=== PATIENT | male | born 1950 | race Caucasian/White ===

== ENCOUNTER 2017-08-10 12:01 | Outpatient (CLI) | payer MEDICARE, OTHER | END 2017-08-10 12:02 | disposition home or self-care (01) | LOC: BICULT 12:01 | PROVIDERS: ATTEND Family Medicine | DX: B18.2 Chronic viral hepatitis C (principal); K80.20 Calculus of gallbladder without cholecystitis without obstruction | CPT/HCPCS: 76705 ==

== ENCOUNTER 2017-08-28 10:09 | Day surgery (SDC) | payer MEDICARE, MEDICAID ==
--- NOTE | 2017-08-28 04:57 | HP ---
DATE OF ADMISSION: 08/28/2017 REASON FOR CONSULTATION: This is a 67-year-old male, who comes in for colonoscopy for colon cancer s creening. The patient has no specific GI symptoms. His bowel movements are regular. No hematochezi a, abdominal pain. No family history of colon cancer. ALLERGIES: None. SOCIAL HISTORY: The patient is a smoker. Does not drink alcohol. MEDICAL ILLNESSES: 1. Chronic hepatitis C. 2. Obesity. 3. Hypertension. 4. Depression, anxiety, bipolar disorder. 5. Prostate hypertrophy. 6. Peripheral neuropathy. 7. ADHD. 8. Memory loss. PHYSICAL EXAMINATION: VITAL SIGNS: Pulse is 70, blood pressure 130/80. HEENT: Conjunctivae clear. CARDIOVASCULAR: First and second heart sounds normal. LUNGS: Clear to auscultation. ABDOMEN: Soft to palpate. No organomegaly. No tenderness. No masses. ADMITTING DIAGNOSIS: A 67-year-old male, who comes in for colonoscopy for colon cancer screening.
[2017-08-28] MEDS ORDERED: Midazolam HCl 2 mg/2 ml Vial ONE (11:45)
--- NOTE | 2017-08-28 15:36 | OP ---
DATE OF PROCEDURE: 08/28/2017 OPERATIVE PROCEDURE: Colonoscopy with polypectomy. PREOPERATIVE DIAGNOSIS: A 67-year-old male undergoing colonoscopy for colon cancer screeni ng. POSTOPERATIVE DIAGNOSIS: Two sessile polyps, sigmoid colon. Otherwise, the exam was normal. PROCEDURE NOTE: The patient was placed on his left lateral position and was given sedation by Anesth esia Department. A rectal exam was done before the scope was advanced into the rectum. No lesions w ere felt on rectal exam. A Pentax video colonoscope was introduced into the rectum and advanced all the way into the cecum. The prep was good. The patient did have some fecal material coating the muc diamond which was seen. The ileocecal area, cecum, ascending colon, no pathology seen. The hepatic flex ure, transverse colon, splenic flexure, descending colon, no pathology seen. The sigmoid colon showe d 2 sessile polyps. One was large and broad based. The polyp measuring approximately 1.5 cm. This was removed with snare cautery with good hemostasis. Another polyp at same location, which is small and measured approximately 6 mm. This was again removed with snare cautery with good hemostasis. Re troflexion of the scope in the rectum showed hemorrhoids. DISCHARGE PLANNING: This is a 67-year-old male who came in for colonoscopy for colon cance r screening. He underwent colonoscopy with polypectomy x2. DISCHARGE RECOMMENDATIONS: 1. The patient advised to call me if he develops abdominal pain and hematochezia. 2. In the absence of any other symptoms, the patient will come back to me in 2 weeks.
[2017-08-28] MEDS ORDERED: Propofol 200 MG/20 ML VIAL ONE (16:33)
== END 2017-08-28 13:30 | disposition home or self-care (01) ==
LOC: SDC 10:09
PROVIDERS: ATTEND Internal Medicine Gastroenterology
PROC: 0DBN8ZX Excision of Sigmoid Colon, Via Natural or Artificial Opening Endoscopic, Diagnostic (ICD-10-PCS; principal; 2017-08-28)
DX: Z12.11 Encounter for screening for malignant neoplasm of colon (principal); D12.5 Benign neoplasm of sigmoid colon; E66.9 Obesity, unspecified; I10 Essential (primary) hypertension; F41.9 Anxiety disorder, unspecified; F31.9 Bipolar disorder, unspecified; F90.9 Attention-deficit hyperactivity disorder, unspecified type; R41.3 Other amnesia; N40.0 Benign prostatic hyperplasia without lower urinary tract symptoms; B18.2 Chronic viral hepatitis C; G62.9 Polyneuropathy, unspecified; F17.200 Nicotine dependence, unspecified, uncomplicated; Z79.899 Other long term (current) drug therapy
CPT/HCPCS: 88305; J2250; J2704

== ENCOUNTER 2020-07-14 05:24 | Inpatient (IN) | payer MEDICARE, MEDICAID ==
[2020-07-14] MEDS ORDERED: Azithromycin 500 MG VIAL ONE (05:53)
[2020-07-14] MEDS ORDERED: Dexamethasone 10 MG/ML VIAL ONE (05:53)
[2020-07-14 06:46] LABS: #Lymphocytes 0.7 thou/uL (1.20-3.40); #Monocytes 0.6 thou/uL (0.11-0.59); #Neutrophils 5.2 thou/uL (1.40-6.50); %Basophils 0.3 % (0.0-1.0); %Eosinophils 0.6 % (0.0-10.0); %Lymphocytes 10.9 % (21.0-51.0); %Monocytes 8.7 % (0.0-10.0); %Neutrophils 79.5 % (42.0-75.0); Hemoglobin 14.6 g/dL (14.0-18.0); Mean Corpuscular HGB CONC 31.1 g/dL (32.0-36.0); Mean Corpuscular Hemoglobin 28.9 pg (27.0-31.0); Mean Corpuscular Volume 92.8 fL (78.0-98.0); Mean Platelet Volume 9.2 fL (7.4-10.4); Platelet Count 126 thou/uL (130-400); RBC Distribution Width 12.1 % (11.5-14.5); Red Blood Cell (RBC) Count 5.05 mill/uL (4.70-6.10); White Blood Cell (WBC) Count 6.5 thou/uL (4.8-10.8)
[2020-07-14 06:56] LABS: ALT (SGPT) 26 U/L (8-55); AST (SGOT) 31 U/L (5-34); Albumin 3.7 g/dL (3.4-4.8); Alkaline Phosphatase 78 U/L (40-110); Anion Gap 16 mmol/L (10-20); BUN (Urea Nitrogen) 29 mg/dL (8.4-25.7); Bilirubin, Total 0.7 mg/dL (0.2-1.2); Calc. Creatinine Clearance 0 mL/min (70-130); Calcium 8.8 mg/dL (7.8-10.44); Carbon Dioxide 20 mmol/L (23-31); Chloride 108 mmol/L (98-107); Glucose 80 mg/dL (80-115); Potassium 3.9 mmol/L (3.5-5.1); Protein, Total 7.7 g/dL (5.8-8.1); Sodium 140 mmol/L (136-145)
[2020-07-14 07:01] LABS: Prothrombin Time 13.1 sec (12.0-14.7)
--- NOTE | 2020-07-14 07:38 | RAD ---
Chest one view HISTORY: Cough. Dyspnea. FINDINGS: Cardiac silhouette is magnified by projection. Pulmonary vasculature predominantly obscured by ill-defined patchy areas of interstitial and airspace infiltrate throughout each lung. No lobar consolidation is evident. Mediastinum is midline with aortic calcification. No evidence of pneumothorax. IMPRESSION : Patchy bilateral infiltrates, consistent with COVID pneumonitis.
[2020-07-14 10:27] LABS: Lactic Acid 2.4 mmol/L (0.5-2.2)
[2020-07-14 11:46] LABS: Troponin I Less than 0.010 ng/mL (< 0.028)
[2020-07-14 14:50] LABS: Troponin I Less than 0.010 ng/mL (< 0.028)
[2020-07-14] MEDS ORDERED: Acetaminophen 325 MG TAB PO PRN (15:07)
[2020-07-14] MEDS ORDERED: hydrALAZINE 20 MG/ML VIAL SLOW IVP PRN (15:07)
[2020-07-14] MEDS ORDERED: Albuterol 200 PUFF (6.7GM INHALER) INH PRN (15:16)
--- NOTE | 2020-07-14 18:03 | HP ---
PRIMARY CARE PHYSICIAN: Dr. Resendiz. CHIEF COMPLAINT: "I'm having trouble breathing." HISTORY OF PRESENT ILLNESS: Mr. Abreu is a very pleasant 70-year-old gentleman, who has a history of ADHD as well as hypertension and chronic hepatitis C. He also has a history of severe low back pain and difficulty ambulating, and as a result, he resides in a [place] [facility]. He says that on July 05, they did a routine COVID check for all of the residents and he was found to be COVID positive. He says that a couple of days after that, on possibly , he began having symptoms of high fever up to 101.7. This continued until about 3 days ago when he began having some difficulty with breathing. He felt short of breath and noticed only an occasional cough. There was no nausea, no vomiting, but due to the shortness of breath, he felt it was in his best interest to come to the hospital, so he was brought here and found to be hypoxic and required 4 L of oxygen in order to maintain his oxygen saturations in the 90s. On chest x-ray, he was found to have findings consistent with bilateral pulmonary infiltrates consistent with COVID pneumonia and is being admitted for further evaluation. Otherwise, the patient has no other complaints other than the chronic back pain and he is very concerned to get started back on his ADHD medications. REVIEW OF SYSTEMS: All systems were reviewed and are negative except for that mentioned in the history of present illness. PAST MEDICAL HISTORY: Significant for chronic hepatitis C, hypertension, obesity, depression, ADHD. PAST SURGICAL HISTORY: He had a tonsillectomy and a skin graft to the right leg. ALLERGIES: NO KNOWN DRUG ALLERGIES. SOCIAL HISTORY: He is a current smoker. He smokes 2 to 3 cigarettes a day. He says prior to that he smoked a lot more. He cannot tell me how long he has been a smoker. He denies any alcohol use. He is single and he says he would like to be a full code. He says he would at least want an attempt at resuscitation done, but would not want to be maintained on a ventilator for a long period of time. FAMILY HISTORY: Ovarian cancer in his mother. CURRENT MEDICATIONS: Taken from the ER records and include; 1. Alprazolam 0.5 mg as needed. 2. as directed. 3. Bupropion 100 mg as directed. 4. Guaifenesin 100 mg as directed. 5. Lisinopril 10 mg as directed. PHYSICAL EXAMINATION: GENERAL: He is alert and oriented. He appears to be in no acute distress. He is well developed and well nourished. VITAL SIGNS: Blood pressure was 143/94, heart rate 109, respiratory rate of 20, temperature is 99.0, and O2 saturation is 90% on 4 L. HEENT: Pupils are equal, round, and reactive to light. Extraocular muscles are intact. His sclerae are anicteric. Throat; there is no erythema, no exudate. NECK: No adenopathy. No bruits. LUNGS: He has basilar crackles bilaterally as well as an occasional wheeze. CARDIOVASCULAR: He has a normal S1 and S2. I did not appreciate an S3 or S4. No murmurs, clicks, or rubs. ABDOMEN: Soft, nontender, nondistended. Positive for bowel sounds. No rebound. No guarding. No organomegaly. EXTREMITIES: There is no clubbing or cyanosis. No edema. No calf tenderness. No joint effusions. NEUROLOGIC: The exam is grossly nonfocal. SKIN AND INTEGUMENT: No skin changes. No rash. LABORATORY RESULTS: The white blood cell count is 6.5, hemoglobin 14.6, hematocrit is 46.9, and platelet count was 129. Sodium 140, potassium 3.9, chloride is 108, CO2 is 20, BUN of 29, creatinine 1.06, glucose is 80. Lactic acid 2.3. INR is 1.0. Again on chest x-ray, heart size is normal. He has bilateral pulmonary infiltrates consistent with COVID pneumonia, and also on the right, there appears to be some fluid within the fissure, this is by my reading. ASSESSMENT: 1. This is a pleasant 70-year-old gentleman with acute respiratory failure with hypoxemia. He also is known COVID positive. He will be admitted, started on IV Decadron, neb treatments as needed, deep venous thrombosis prophylaxis as well as gastrointestinal prophylaxis. We will also monitor his inflammatory markers. As far as timeframe, he is within the timeframe for remdesivir, and he has been consented for this. He does understand that it is for emergency use authorization and the side effect profiles were discussed and he is agreeable. 2. Attention deficit hyperactivity disorder. We will need to reconcile and restart his home medications. 3. Hypertension. Again, reconcile and restart home medications. Job ID: [id number]
[2020-07-14] MEDS: HYDROcodone/Acetaminophen 5/325 mg Tablet PO PRN (18:31)
[2020-07-14] MEDS ORDERED: buPROPion HCl 100 MG TAB PO SCH (21:00)
[2020-07-14] MEDS: ALPRAZolam 0.5 MG TAB PO SCH (22:41)
[2020-07-14] MEDS: Pregabalin 75 MG CAP PO SCH (22:41)
[2020-07-14] MEDS: Famotidine 20 MG TAB PO SCH (22:41)
[2020-07-15] MEDS: HYDROcodone/Acetaminophen 5/325 mg Tablet PO PRN ×3 (00:25→22:02)
[2020-07-15 06:21] LABS: #Eosinphils 0.1 thou/uL (0.0-0.7); #Lymphocytes 0.9 thou/uL (1.20-3.40); #Monocytes 0.6 thou/uL (0.11-0.59); #Neutrophils 5.9 thou/uL (1.40-6.50); %Basophils 0.1 % (0.0-1.0); %Eosinophils 1.2 % (0.0-10.0); %Lymphocytes 12.4 % (21.0-51.0); %Neutrophils 78.3 % (42.0-75.0); Hemoglobin 12.8 g/dL (14.0-18.0); Mean Corpuscular HGB CONC 32.9 g/dL (32.0-36.0); Mean Corpuscular Hemoglobin 30.4 pg (27.0-31.0); Mean Corpuscular Volume 92.5 fL (78.0-98.0); Mean Platelet Volume 8.8 fL (7.4-10.4); Platelet Count 134 thou/uL (130-400); RBC Distribution Width 12.1 % (11.5-14.5); Red Blood Cell (RBC) Count 4.22 mill/uL (4.70-6.10); White Blood Cell (WBC) Count 7.6 thou/uL (4.8-10.8)
[2020-07-15 06:42] LABS: Anion Gap 15 mmol/L (10-20); BUN (Urea Nitrogen) 25 mg/dL (8.4-25.7); CRP (Inflammatory) 5.24 mg/dL (= or < 0.5); Calc. Creatinine Clearance 61 mL/min (70-130); Calcium 8.4 mg/dL (7.8-10.44); Carbon Dioxide 19 mmol/L (23-31); Chloride 110 mmol/L (98-107); Glucose 77 mg/dL (80-115); Potassium 3.7 mmol/L (3.5-5.1); Sodium 140 mmol/L (136-145)
[2020-07-15] MEDS: Famotidine 20 MG TAB PO SCH ×2 (07:46→20:03)
[2020-07-15] MEDS: Enoxaparin Sodium 40 MG/0.4 ML SYRINGE SC SCH (07:46)
[2020-07-15] MEDS: Pregabalin 75 MG CAP PO SCH ×3 (07:47→20:03)
[2020-07-15] MEDS: ALPRAZolam 0.5 MG TAB PO SCH ×3 (07:47→20:04)
[2020-07-15] MEDS: Cholecalciferol 1,000 UNITS (25 MCG) TAB PO SCH (07:47)
[2020-07-15] MEDS: Ascorbic Acid 500 mg Chewable Tablet PO SCH (07:48)
[2020-07-15] MEDS: Lisinopril 10 MG TAB PO SCH (07:48)
[2020-07-15] MEDS: Zinc Sulfate 220 MG CAP PO SCH (07:48)
[2020-07-15] MEDS ORDERED: FLU VACC QS2020-21(65YR UP)/PF 240 MCG/0.7 ML SYRINGE IM ONE (09:00)
[2020-07-15] MEDS ORDERED: REMDESIVIR (EUA) 200 MG in Sodium Chloride 0.9% 250 ML 210 ML IV SCH (09:00)
[2020-07-15] MEDS: Dexamethasone 6 MG in Sodium Chloride 0.9% 50 ML IVPB SCH (09:07)
--- NOTE | 2020-07-15 10:42 | PDOC.HOSPP ---
- Subjective Encounter Date: 07/15/20 Encounter Time: 10:40 Subjective: Mr. Abreu was seen today in follow-up of COVID pneumonia and respiratory failure. He says he feels awful, but is breathing comfortably with supplemental oxygen. He has no appetite, and has had some diarrhea. - Objective Vital Signs & Weight: Vital Signs (12 hours) Temp Pulse Resp BP Pulse Ox 07/15/20 08:00 95 07/15/20 04:00 98.2 F 62 20 148/81 H 95 07/15/20 00:00 98.2 F 66 18 152/76 H 93 L Weight Weight 113 lb 1.554 oz I&O: 07/14/20 07/15/20 07/16/20 06:59 06:59 06:59 Intake Total 240 Balance 240 Result Diagrams: 07/15/20 05:57 07/15/20 05:57 Hospitalist ROS - Medication Medications: Active Medications Generic Name Dose Route Start Last Admin Trade Name Freq PRN Reason Stop Dose Admin Hydrocodone Bitart/Acetaminophen 1 tab 07/14/20 15:07 07/15/20 00:25 Hydrocodone/Acetaminophen 5/325 Mg Tablet PO 1 tab Q4H PRN Administration Moderate Pain (4-6) Alprazolam 0.5 mg 07/14/20 21:00 07/15/20 07:47 Alprazolam 0.5 Mg Tab PO 0.5 mg TID SAVANNA Administration Ascorbic Acid 1,000 mg 07/15/20 09:00 07/15/20 07:48 Ascorbic Acid 500 Mg Chewable Tablet PO 1,000 mg DAILY SAVANNA Administration Cholecalciferol 2,000 units 07/15/20 09:00 07/15/20 07:47 Cholecalciferol 1,000 Units (25 Mcg) Tab PO 2,000 units DAILY SAVANNA Administration Enoxaparin Sodium 40 mg 07/15/20 09:00 07/15/20 07:46 Enoxaparin Sodium 40 Mg/0.4 Ml Syringe SC 40 mg 0900 SAVANNA Administration Famotidine 20 mg 07/14/20 21:00 07/15/20 07:46 Famotidine 20 Mg Tab PO 20 mg BID SAVANNA Administration Dexamethasone 6 mg/ Sodium 51.5 mls @ 100 mls/hr 07/15/20 09:00 07/15/20 09:07 Chloride IVPB 51.5 mls DAILY SAVANNA Administration Lisinopril 10 mg 07/15/20 09:00 07/15/20 07:48 Lisinopril 10 Mg Tab PO 10 mg QAM SAVANNA Administration Pregabalin 75 mg 07/14/20 21:00 07/15/20 07:47 Pregabalin 75 Mg Cap PO 75 mg TID SAVANNA Administration Zinc Sulfate 220 mg 07/15/20 09:00 07/15/20 07:48 Zinc Sulfate 220 Mg Cap PO 220 mg DAILY SAVANNA Administration - Exam Eye: PERRL, anicteric sclera Heart: RRR, no murmur, no gallops, no rubs, normal peripheral pulses Respiratory: rales Gastrointestinal: soft, non-tender, non-distended, normal bowel sounds, no palpable masses, no hepatomegaly Extremities: no cyanosis, no edema (+ palpable d.p. pulses bilaterally, no lesions) Hosp A/P (1) Acute respiratory failure with hypoxemia Code(s): J96.01 - ACUTE RESPIRATORY FAILURE WITH HYPOXIA Status: Acute (2) Pneumonia due to COVID-19 virus Code(s): U07.1 - COVID-19; J12.82 - Status: Acute (3) ADHD Status: Chronic (4) Hypertension Code(s): I10 - ESSENTIAL (PRIMARY) HYPERTENSION Status: Chronic - Plan * COVID pneumonia- continue Decadron and Remdesivir. Supplemental oxygen, and will add incentive spirometry * Monitor inflammatory markers as well as renal and liver function tests * HTN- blood pressure is a bit elevated- Lisinopril has been re-started, and continue PRN medication as well * ADHD- he was not able to receive his home medication from the nursing facility- we may have to place anon-formulary request *
[2020-07-16] MEDS: HYDROcodone/Acetaminophen 5/325 mg Tablet PO PRN ×5 (04:00→22:20)
[2020-07-16 07:18] LABS: Anion Gap 16 mmol/L (10-20); BUN (Urea Nitrogen) 26 mg/dL (8.4-25.7); CRP (Inflammatory) 8.52 mg/dL (= or < 0.5); Calc. Creatinine Clearance 61 mL/min (70-130); Calcium 8.4 mg/dL (7.8-10.44); Carbon Dioxide 18 mmol/L (23-31); Chloride 108 mmol/L (98-107); Glucose 72 mg/dL (80-115); Potassium 3.7 mmol/L (3.5-5.1); Sodium 138 mmol/L (136-145)
[2020-07-16 07:20] LABS: ALT (SGPT) 26 U/L (8-55); AST (SGOT) 26 U/L (5-34); Albumin 3.3 g/dL (3.4-4.8); Alkaline Phosphatase 79 U/L (40-110); Bilirubin, Direct 0.3 mg/dL (0.1-0.3); Bilirubin, Total 0.6 mg/dL (0.2-1.2)
[2020-07-16] MEDS: Enoxaparin Sodium 40 MG/0.4 ML SYRINGE SC SCH (08:07)
[2020-07-16] MEDS: Cholecalciferol 1,000 UNITS (25 MCG) TAB PO SCH (08:07)
[2020-07-16] MEDS: Lisinopril 10 MG TAB PO SCH (08:08)
[2020-07-16] MEDS: ALPRAZolam 0.5 MG TAB PO SCH ×3 (08:08→21:33)
[2020-07-16] MEDS: Ascorbic Acid 500 mg Chewable Tablet PO SCH (08:08)
[2020-07-16] MEDS: Pregabalin 75 MG CAP PO SCH ×3 (08:08→21:32)
[2020-07-16] MEDS: Famotidine 20 MG TAB PO SCH ×2 (08:08→21:32)
[2020-07-16] MEDS: Zinc Sulfate 220 MG CAP PO SCH (08:09)
[2020-07-16] MEDS: Dexamethasone 6 MG in Sodium Chloride 0.9% 50 ML IVPB SCH (09:12)
--- NOTE | 2020-07-16 10:47 | PDOC.HOSPP ---
- Subjective Encounter Date: 07/16/20 Encounter Time: 10:45 Subjective: Mr. Abreu was seen today in follow-up of respiratory failure due to COVID. He says he feels maybe a tiny bit better. - Objective Vital Signs & Weight: Vital Signs (12 hours) Temp Pulse Resp BP BP Pulse Ox 07/16/20 08:36 95 07/16/20 08:08 166/82 H 07/16/20 07:20 98.5 F 68 18 166/82 H 95 07/16/20 04:00 98.8 F 82 18 157/93 H 93 L 07/16/20 00:05 98.8 F 78 18 143/87 H 96 Weight Weight 113 lb 1.554 oz I&O: 07/15/20 07/16/20 07/17/20 06:59 06:59 06:59 Intake Total 480 Balance 480 Result Diagrams: 07/15/20 05:57 07/16/20 06:28 Hospitalist ROS - Medication Medications: Active Medications Generic Name Dose Route Start Last Admin Trade Name Freq PRN Reason Stop Dose Admin Hydrocodone Bitart/Acetaminophen 1 tab 07/14/20 15:07 07/16/20 08:06 Hydrocodone/Acetaminophen 5/325 Mg Tablet PO 1 tab Q4H PRN Administration Moderate Pain (4-6) Alprazolam 0.5 mg 07/14/20 21:00 07/16/20 08:08 Alprazolam 0.5 Mg Tab PO 0.5 mg TID SAVANNA Administration Ascorbic Acid 1,000 mg 07/15/20 09:00 07/16/20 08:08 Ascorbic Acid 500 Mg Chewable Tablet PO 1,000 mg DAILY SAVANNA Administration Cholecalciferol 2,000 units 07/15/20 09:00 07/16/20 08:07 Cholecalciferol 1,000 Units (25 Mcg) Tab PO 2,000 units DAILY SAVANNA Administration Enoxaparin Sodium 40 mg 07/15/20 09:00 07/16/20 08:07 Enoxaparin Sodium 40 Mg/0.4 Ml Syringe SC 40 mg 0900 SAVANNA Administration Famotidine 20 mg 07/14/20 21:00 07/16/20 08:08 Famotidine 20 Mg Tab PO 20 mg BID SAVANNA Administration Dexamethasone 6 mg/ Sodium 51.5 mls @ 100 mls/hr 07/15/20 09:00 07/16/20 09:12 Chloride IVPB 51.5 mls DAILY SAVANNA Administration Lisinopril 10 mg 07/15/20 09:00 07/16/20 08:08 Lisinopril 10 Mg Tab PO 10 mg QAM SAVANNA Administration Pregabalin 75 mg 07/14/20 21:00 07/16/20 08:08 Pregabalin 75 Mg Cap PO 75 mg TID SAVANNA Administration Zinc Sulfate 220 mg 07/15/20 09:00 07/16/20 08:09 Zinc Sulfate 220 Mg Cap PO 220 mg DAILY SAVANNA Administration - Exam General Appearance: NAD, awake alert Heart: RRR, no murmur, no gallops, no rubs, normal peripheral pulses Respiratory: rales (at both bases, no wheezing or rhonchi) Gastrointestinal: soft, non-tender, non-distended, normal bowel sounds, no palpable masses, no hepatomegaly Extremities: no cyanosis, no edema (good d.p. pulses bilaterally) Hosp A/P (1) Acute respiratory failure with hypoxemia Code(s): J96.01 - ACUTE RESPIRATORY FAILURE WITH HYPOXIA Status: Acute (2) Pneumonia due to COVID-19 virus Code(s): U07.1 - COVID-19; J12.82 - Status: Acute (3) ADHD Status: Chronic (4) Hypertension Code(s): I10 - ESSENTIAL (PRIMARY) HYPERTENSION Status: Chronic - Plan * COVID pneumonia- continue Decadron and Remdesivir until July 19. Supplemental oxygen, and will add incentive spirometry * Monitor inflammatory markers as well as renal and liver function tests * HTN- blood pressure is a bit elevated- Lisinopril has been re-started, and continue PRN medication as well * ADHD- he was not able to receive his home medication from the nursing facility- we may have to place anon-formulary request *
[2020-07-16] MEDS: REMDESIVIR (EUA) 100 MG in Sodium Chloride 0.9% 250 ML 230 ML IV SCH (10:57)
[2020-07-16 12:53] VITALS: BMI 35.1
[2020-07-16] MEDS: buPROPion HCl 100 MG TAB PO SCH (21:31)
[2020-07-17] MEDS: Dicyclomine 10 MG CAP PO PRN ×3 (01:38→23:25)
[2020-07-17] MEDS: HYDROcodone/Acetaminophen 5/325 mg Tablet PO PRN ×6 (02:19→21:34)
[2020-07-17 06:55] LABS: Anion Gap 15 mmol/L (10-20); BUN (Urea Nitrogen) 27 mg/dL (8.4-25.7); CRP (Inflammatory) 6.59 mg/dL (= or < 0.5); Calc. Creatinine Clearance 131 mL/min (70-130); Calcium 8.6 mg/dL (7.8-10.44); Carbon Dioxide 18 mmol/L (23-31); Chloride 108 mmol/L (98-107); Glucose 91 mg/dL (80-115); Potassium 4.1 mmol/L (3.5-5.1); Sodium 137 mmol/L (136-145)
[2020-07-17 07:00] LABS: ALT (SGPT) 27 U/L (8-55); AST (SGOT) 24 U/L (5-34); Albumin 3.1 g/dL (3.4-4.8); Alkaline Phosphatase 83 U/L (40-110); Bilirubin, Direct 0.3 mg/dL (0.1-0.3); Bilirubin, Total 0.5 mg/dL (0.2-1.2); Magnesium 2.1 mg/dL (1.6-2.6); Protein, Total 6.6 g/dL (5.8-8.1)
[2020-07-17] MEDS: Enoxaparin Sodium 40 MG/0.4 ML SYRINGE SC SCH ×2 (08:31→09:46)
[2020-07-17] MEDS: Pregabalin 75 MG CAP PO SCH ×3 (08:31→21:33)
[2020-07-17] MEDS: ALPRAZolam 1 MG TAB PO SCH ×3 (08:32→21:32)
[2020-07-17] MEDS: Ascorbic Acid 500 mg Chewable Tablet PO SCH (08:32)
[2020-07-17] MEDS: buPROPion HCl 100 MG TAB PO SCH ×2 (08:33→21:33)
[2020-07-17] MEDS: Famotidine 20 MG TAB PO SCH ×2 (08:33→21:33)
[2020-07-17] MEDS: Zinc Sulfate 220 MG CAP PO SCH (08:33)
[2020-07-17] MEDS: Lisinopril 10 MG TAB PO SCH (08:33)
[2020-07-17] MEDS: Dexamethasone 6 MG in Sodium Chloride 0.9% 50 ML IVPB SCH (08:33)
[2020-07-17] MEDS: Cholecalciferol 1,000 UNITS (25 MCG) TAB PO SCH (08:33)
[2020-07-17] MEDS: REMDESIVIR (EUA) 100 MG in Sodium Chloride 0.9% 250 ML 230 ML IV SCH (10:11)
--- NOTE | 2020-07-17 10:21 | PDOC.HOSPP ---
- Subjective Encounter Date: 07/17/20 Encounter Time: 10:19 Subjective: Mr. Abreu was seen today in follow-up of COVID pneumonia. He says he continues to feel a little better each day. He says he is had trouble sleeping, and still would like to have the Adderall. - Objective Vital Signs & Weight: Vital Signs (12 hours) Temp Pulse Resp BP BP Pulse Ox 07/17/20 08:33 143/81 H 07/17/20 08:00 94 L 07/17/20 07:07 98.4 F 67 20 143/81 H 94 L 07/17/20 04:58 98.4 F 84 20 144/78 H 98 07/17/20 00:40 97.8 F 100 18 155/88 H 92 L Weight Admit Weight 238 lb Weight 238 lb 0.7 oz I&O: 07/16/20 07/17/20 07/18/20 06:59 06:59 06:59 Intake Total 480 1950 Output Total 300 Balance 480 1650 Result Diagrams: 07/15/20 05:57 07/17/20 05:51 Hospitalist ROS - Medication Medications: Active Medications Generic Name Dose Route Start Last Admin Trade Name Freq PRN Reason Stop Dose Admin Acetaminophen 650 mg 07/14/20 15:07 07/17/20 05:08 Acetaminophen 325 Mg Tab PO 650 mg Q4H PRN Administration Headache/Fever/Mild Pain (1-3) Hydrocodone Bitart/Acetaminophen 1 tab 07/14/20 15:07 07/17/20 10:11 Hydrocodone/Acetaminophen 5/325 Mg Tablet PO 1 tab Q4H PRN Administration Moderate Pain (4-6) Alprazolam 1 mg 07/17/20 09:00 07/17/20 08:32 Alprazolam 1 Mg Tab PO 1 mg TID SAVANNA Administration Ascorbic Acid 1,000 mg 07/15/20 09:00 07/17/20 08:32 Ascorbic Acid 500 Mg Chewable Tablet PO 1,000 mg DAILY SAVANNA Administration Bupropion HCl 200 mg 07/16/20 21:00 07/17/20 08:33 Bupropion Hcl 100 Mg Tab PO 200 mg BID SAVANNA Administration Cholecalciferol 2,000 units 07/15/20 09:00 07/17/20 08:33 Cholecalciferol 1,000 Units (25 Mcg) Tab PO 2,000 units DAILY SAVANNA Administration Dicyclomine HCl 10 mg 07/17/20 00:45 07/17/20 08:32 Dicyclomine 10 Mg Cap PO 10 mg QIDPRN PRN Administration CRAMPS Enoxaparin Sodium 40 mg 07/15/20 09:00 07/17/20 09:46 Enoxaparin Sodium 40 Mg/0.4 Ml Syringe SC Not Given 0900 SAVANNA Famotidine 20 mg 07/14/20 21:00 07/17/20 08:33 Famotidine 20 Mg Tab PO 20 mg BID SAVANNA Administration Dexamethasone 6 mg/ Sodium 51.5 mls @ 100 mls/hr 07/15/20 09:00 07/17/20 08:33 Chloride IVPB 51.5 mls DAILY SAVANNA Administration Remdesivir 100 mg/ Sodium 250 mls @ 250 mls/hr 07/16/20 09:00 07/17/20 10:11 Chloride IV 07/19/20 09:59 250 mls Q24H SAVANNA Administration Lisinopril 10 mg 07/15/20 09:00 07/17/20 08:33 Lisinopril 10 Mg Tab PO 10 mg QAM SAVANNA Administration Pregabalin 75 mg 07/14/20 21:00 07/17/20 08:31 Pregabalin 75 Mg Cap PO 75 mg TID SAVANNA Administration Zinc Sulfate 220 mg 07/15/20 09:00 07/17/20 08:33 Zinc Sulfate 220 Mg Cap PO 220 mg DAILY SAVANNA Administration - Exam Eye: PERRL, anicteric sclera Heart: RRR, no murmur, no gallops, no rubs, normal peripheral pulses Respiratory: no wheezes, no ronchi, rales Gastrointestinal: soft, non-tender, non-distended, normal bowel sounds, no palpable masses Extremities: no cyanosis, no edema (+ palpable d.p. pulses, no lesions) Hosp A/P (1) Acute respiratory failure with hypoxemia Code(s): J96.01 - ACUTE RESPIRATORY FAILURE WITH HYPOXIA Status: Acute (2) Pneumonia due to COVID-19 virus Code(s): U07.1 - COVID-19; J12.82 - Status: Acute (3) ADHD Status: Chronic (4) Hypertension Code(s): I10 - ESSENTIAL (PRIMARY) HYPERTENSION Status: Chronic - Plan * COVID pneumonia- continue Decadron and Remdesivir until July 19. Supplemental oxygen, and will add incentive spirometry * Monitor inflammatory markers as well as renal and liver function tests * HTN- blood pressure is better continue Lisinopril and PRN medication as well * ADHD- I have completed the forms for non-formulary request * Insomnia- will give a trial of Ambien
[2020-07-17] MEDS: Zolpidem Tartrate 5 MG TAB PO PRN ×2 (10:57→23:25)
[2020-07-18] MEDS: HYDROcodone/Acetaminophen 5/325 mg Tablet PO PRN ×3 (03:01→20:32)
[2020-07-18] MEDS: Dicyclomine 10 MG CAP PO PRN (03:35)
[2020-07-18 07:31] LABS: Anion Gap 16 mmol/L (10-20); BUN (Urea Nitrogen) 23 mg/dL (8.4-25.7); CRP (Inflammatory) 3.75 mg/dL (= or < 0.5); Calc. Creatinine Clearance 124 mL/min (70-130); Calcium 8.8 mg/dL (7.8-10.44); Carbon Dioxide 18 mmol/L (23-31); Chloride 106 mmol/L (98-107); Glucose 94 mg/dL (80-115); Potassium 3.7 mmol/L (3.5-5.1); Sodium 136 mmol/L (136-145)
[2020-07-18 07:33] LABS: ALT (SGPT) 30 U/L (8-55); AST (SGOT) 27 U/L (5-34); Albumin 3.2 g/dL (3.4-4.8); Alkaline Phosphatase 95 U/L (40-110); Bilirubin, Direct 0.2 mg/dL (0.1-0.3); Bilirubin, Total 0.5 mg/dL (0.2-1.2); Protein, Total 6.8 g/dL (5.8-8.1)
[2020-07-18] MEDS: Enoxaparin Sodium 40 MG/0.4 ML SYRINGE SC SCH (09:21)
[2020-07-18] MEDS: Lisinopril 10 MG TAB PO SCH (09:21)
[2020-07-18] MEDS: ALPRAZolam 1 MG TAB PO SCH ×3 (09:21→20:03)
[2020-07-18] MEDS: Ascorbic Acid 500 mg Chewable Tablet PO SCH (09:21)
[2020-07-18] MEDS: Famotidine 20 MG TAB PO SCH ×2 (09:21→20:03)
[2020-07-18] MEDS: Pregabalin 75 MG CAP PO SCH ×4 (09:21→20:04)
[2020-07-18] MEDS: Cholecalciferol 1,000 UNITS (25 MCG) TAB PO SCH (09:33)
--- NOTE | 2020-07-18 10:41 | PDOC.HOSPP ---
- Subjective Encounter Date: 07/18/20 Subjective: appears comfortable, worried that he is not getting his Adderall - Objective Vital Signs & Weight: Vital Signs (12 hours) Temp Pulse Resp BP Pulse Ox 07/18/20 08:00 98.0 F 75 93 H 118/75 22 L 07/18/20 06:15 92 L 07/18/20 05:09 98 F 67 18 148/79 H 89 L Weight Admit Weight 238 lb Weight 238 lb 0.7 oz I&O: 07/17/20 07/18/20 07/19/20 06:59 06:59 06:59 Intake Total 1950 1540 Output Total 300 400 Balance 1650 1140 Result Diagrams: 07/15/20 05:57 07/18/20 06:25 Hospitalist ROS - Medication Medications: Active Medications Generic Name Dose Route Start Last Admin Trade Name Freq PRN Reason Stop Dose Admin Acetaminophen 650 mg 07/14/20 15:07 07/17/20 05:08 Acetaminophen 325 Mg Tab PO 650 mg Q4H PRN Administration Headache/Fever/Mild Pain (1-3) Hydrocodone Bitart/Acetaminophen 1 tab 07/14/20 15:07 07/18/20 09:33 Hydrocodone/Acetaminophen 5/325 Mg Tablet PO 1 tab Q4H PRN Administration Moderate Pain (4-6) Alprazolam 1 mg 07/17/20 09:00 07/18/20 09:21 Alprazolam 1 Mg Tab PO 1 mg TID SAVANNA Administration Ascorbic Acid 1,000 mg 07/15/20 09:00 07/18/20 09:21 Ascorbic Acid 500 Mg Chewable Tablet PO 1,000 mg DAILY SAVANNA Administration Bupropion HCl 200 mg 07/16/20 21:00 07/17/20 21:33 Bupropion Hcl 100 Mg Tab PO 200 mg BID SAVANNA Administration Cholecalciferol 2,000 units 07/15/20 09:00 07/18/20 09:33 Cholecalciferol 1,000 Units (25 Mcg) Tab PO 2,000 units DAILY SAVANNA Administration Dicyclomine HCl 10 mg 07/17/20 00:45 07/18/20 03:35 Dicyclomine 10 Mg Cap PO 10 mg QIDPRN PRN Administration CRAMPS Enoxaparin Sodium 40 mg 07/15/20 09:00 07/18/20 09:21 Enoxaparin Sodium 40 Mg/0.4 Ml Syringe SC 40 mg 0900 SAVANNA Administration Famotidine 20 mg 07/14/20 21:00 07/18/20 09:21 Famotidine 20 Mg Tab PO 20 mg BID SAVANNA Administration Dexamethasone 6 mg/ Sodium 51.5 mls @ 100 mls/hr 07/15/20 09:00 07/17/20 08:33 Chloride IVPB 51.5 mls DAILY SAVANNA Administration Remdesivir 100 mg/ Sodium 250 mls @ 250 mls/hr 07/16/20 09:00 07/17/20 10:11 Chloride IV 07/19/20 09:59 250 mls Q24H SAVANNA Administration Lisinopril 10 mg 07/15/20 09:00 07/18/20 09:21 Lisinopril 10 Mg Tab PO 10 mg QAM SAVANNA Administration Pregabalin 75 mg 07/14/20 21:00 07/18/20 09:21 Pregabalin 75 Mg Cap PO 75 mg TID SAVANNA Administration Zinc Sulfate 220 mg 07/15/20 09:00 07/17/20 08:33 Zinc Sulfate 220 Mg Cap PO 220 mg DAILY SAVANNA Administration Zolpidem Tartrate 5 mg 07/17/20 10:18 07/17/20 23:25 Zolpidem Tartrate 5 Mg Tab PO 5 mg HSPRN PRN Administration Insomnia - Exam General Appearance: awake alert Eye: PERRL, anicteric sclera ENT: normocephalic atraumatic, no oropharyngeal lesions Neck: supple, symmetric, no JVD Heart: RRR, no murmur, no gallops Respiratory: CTAB, no wheezes Gastrointestinal: soft, non-tender Extremities: no cyanosis Skin: normal turgor Neurological: cranial nerve grossly intact Musculoskeletal: normal tone Hosp A/P (1) Pneumonia due to COVID-19 virus Code(s): U07.1 - COVID-19; J12.82 - PNEUMONIA DUE TO CORONAVIRUS DISEASE 2019 Status: Acute (2) ADHD Status: Chronic (3) Hypertension Code(s): I10 - ESSENTIAL (PRIMARY) HYPERTENSION Status: Chronic - Plan seems to still require oxygen but otherwise clinically doing well. spoke with RN about his Adderrall, we need to procure it for him. He comes from a [facility] and I project being able to discharge him tomorrow on oxygen and po decadron to finish his therapeutic course.
[2020-07-18] MEDS: Dexamethasone 6 MG in Sodium Chloride 0.9% 50 ML IVPB SCH (11:00)
[2020-07-18] MEDS: buPROPion HCl 100 MG TAB PO SCH ×2 (11:00→20:03)
[2020-07-18] MEDS: Zinc Sulfate 220 MG CAP PO SCH (11:31)
[2020-07-18] MEDS: REMDESIVIR (EUA) 100 MG in Sodium Chloride 0.9% 250 ML 230 ML IV SCH (12:00)
[2020-07-18] MEDS: (Dextroamphetamine/Amphetamine [Adderall] 30 MG Tablet) PO SCH (17:57)
[2020-07-19] MEDS: HYDROcodone/Acetaminophen 5/325 mg Tablet PO PRN ×2 (03:09→08:26)
[2020-07-19 06:37] LABS: #Eosinphils 0.1 thou/uL (0.0-0.7); #Lymphocytes 1.1 thou/uL (1.20-3.40); #Neutrophils 9.9 thou/uL (1.40-6.50); %Eosinophils 0.5 % (0.0-10.0); %Lymphocytes 9.3 % (21.0-51.0); %Monocytes 8.4 % (0.0-10.0); %Neutrophils 81.8 % (42.0-75.0); Hemoglobin 14.3 g/dL (14.0-18.0); Mean Corpuscular Hemoglobin 30.7 pg (27.0-31.0); Mean Corpuscular Volume 92.9 fL (78.0-98.0); Mean Platelet Volume 9.2 fL (7.4-10.4); Platelet Count 123 thou/uL (130-400); RBC Distribution Width 12.3 % (11.5-14.5); Red Blood Cell (RBC) Count 4.65 mill/uL (4.70-6.10); White Blood Cell (WBC) Count 12.1 thou/uL (4.8-10.8)
[2020-07-19 07:00] LABS: Anion Gap 15 mmol/L (10-20); BUN (Urea Nitrogen) 23 mg/dL (8.4-25.7); CRP (Inflammatory) 3.75 mg/dL (= or < 0.5); Calc. Creatinine Clearance 121 mL/min (70-130); Calcium 8.6 mg/dL (7.8-10.44); Carbon Dioxide 19 mmol/L (23-31); Chloride 103 mmol/L (98-107); Glucose 80 mg/dL (80-115); Potassium 3.9 mmol/L (3.5-5.1); Sodium 133 mmol/L (136-145)
[2020-07-19 07:01] LABS: ALT (SGPT) 32 U/L (8-55); AST (SGOT) 26 U/L (5-34); Albumin 3.1 g/dL (3.4-4.8); Alkaline Phosphatase 90 U/L (40-110); Bilirubin, Direct 0.3 mg/dL (0.1-0.3); Bilirubin, Total 0.6 mg/dL (0.2-1.2); Protein, Total 6.6 g/dL (5.8-8.1)
[2020-07-19] MEDS: Cholecalciferol 1,000 UNITS (25 MCG) TAB PO SCH (08:26)
[2020-07-19] MEDS: Zinc Sulfate 220 MG CAP PO SCH (08:26)
[2020-07-19] MEDS: Ascorbic Acid 500 mg Chewable Tablet PO SCH (08:26)
[2020-07-19] MEDS: Lisinopril 10 MG TAB PO SCH (08:27)
[2020-07-19] MEDS: Enoxaparin Sodium 40 MG/0.4 ML SYRINGE SC SCH ×2 (08:27→08:37)
[2020-07-19] MEDS: ALPRAZolam 1 MG TAB PO SCH ×2 (08:27→16:29)
[2020-07-19] MEDS: buPROPion HCl 100 MG TAB PO SCH (08:27)
[2020-07-19] MEDS: Famotidine 20 MG TAB PO SCH (08:27)
[2020-07-19] MEDS: Pregabalin 75 MG CAP PO SCH ×2 (08:28→16:30)
[2020-07-19] MEDS: Dexamethasone 6 MG in Sodium Chloride 0.9% 50 ML IVPB SCH (10:00)
[2020-07-19] MEDS: REMDESIVIR (EUA) 100 MG in Sodium Chloride 0.9% 250 ML 230 ML IV SCH (10:31)
--- NOTE | 2020-07-19 15:50 | PDOC.DS.DS ---
Provider - Provider Date of Admission: 07/14/20 15:07 Date of Discharge: 07/19/20 Admitting Provider: Israel Stoddard MD Primary Care Physician: Endy Kennedy MD Course - Hospital Course Hospital Course: patient who is a [place] resident for severe low back pain and difficulty with ambulation, he was diagnosed with COVID 19 on July 05 as part of screening campaign at his NH, on July 07 he started having fever and on Jul 14 he was admitted to our hospital for decreased oxygenation. His CXR showed bilateral pulmonary infiltrate. He was started on Remdesivir and IV Decadron. He progressed well and today was his last dose of Remdesivir. He is still requiring oxygen supplementation but otherwise doing well. He insists on receiving Ritalin as we were unable to procure his Adderall. He feels he will better off at his NH. He will be discharged to continue to be on oxygen and finish his course of Decadron, I will also maintain him on Heparin SQ for DVT prophylaxis as he is not very mobile, to be reassessed by [place] . Resuscitation Status: 07/14/20 11:23 Resuscitation Status Routine Resuscitation Status: FULL: Full Resuscitation - Labs Lab Results: 07/19/20 06:19 07/19/20 06:19 Abnormal Lab Results - Last 48 hrs 07/18/20 06:25: Carbon Dioxide 18 L, C-Reactive Protein 3.75 H 07/18/20 06:25: D-Dimer 3.86 H 07/18/20 06:25: Albumin 3.2 L 07/19/20 06:19: Sodium 133 L, Carbon Dioxide 19 L, C-Reactive Protein 3.75 H 07/19/20 06:19: D-Dimer 6.35 H 07/19/20 06:19: Albumin 3.1 L 07/19/20 06:19: WBC 12.1 H, RBC 4.65 L, Plt Count 123 L, Neutrophils % 81.8 H, Lymphocytes % 9.3 L, Neutrophils # 9.9 H, Lymphocytes # 1.1 L, Monocytes # 1.0 H Microbiology - Entire Visit 07/14/20 05:51 Venous blood - Right Hand Blood Culture - Final Staph. hominus subsp. hominus#2 Staph. hominus subsp. hominus 07/14/20 05:51 Venous blood - Left Arm Blood Culture - Final Staph. hominus subsp. hominus Staph. hominus subsp. hominus#2 07/16/20 08:48 Venous blood - Left Hand Blood Culture - Preliminary NO GROWTH AT 48 HOURS 07/16/20 08:48 Venous blood - Right Hand Blood Culture - Preliminary NO GROWTH AT 48 HOURS - Physical Exam Vitals: Vital Signs (12 hours) Temp Pulse Resp BP Pulse Ox 07/19/20 11:00 98.6 F 72 20 137/78 92 L 07/19/20 07:46 98.1 F 68 20 127/81 99 Weight Admit Weight 238 lb Weight 238 lb 0.7 oz Physical Exam: The patient was seen and examined on the day of discharge. Problem - Problem (1) Pneumonia due to COVID-19 virus Code(s): U07.1 - COVID-19; J12.82 - PNEUMONIA DUE TO CORONAVIRUS DISEASE 2019 Status: Acute (2) ADHD Status: Chronic (3) Hypertension Code(s): I10 - ESSENTIAL (PRIMARY) HYPERTENSION Status: Chronic - Time spent with Patient (mins): 35 Plan - Discharge Medications Prescriptions: Dexamethasone [Decadron] 6 mg PO Q24H #5 tablet Heparin Sodium,Porcine/PF [Heparin Sod 5,000 Unit/0.5 ml] 5,000 unit SQ BID #14 syringe Home Medications: Medication Instructions Recorded Confirmed Type ALPRAZolam [Alprazolam] 1 tab PO TID 08/27/17 07/14/20 History Acetaminophen With Codeine 1 tab PO Q6HR 08/27/17 07/14/20 History [Tylenol with Codeine #4] Calcium Gluconate 600 mg PO BID 08/27/17 07/14/20 History Cholecalciferol (Vitamin D3) 2,000 unit PO DAILY 08/27/17 07/14/20 History [D3-2000] Dextroamphetamine/Amphetamine 30 mg PO QAM 08/27/17 07/14/20 History [Adderall] Lisinopril 1 tab PO QAM 08/27/17 07/14/20 History Pregabalin [Lyrica] 1 tab PO TID 08/27/17 07/14/20 History Ranitidine HCl 150 mg PO BID 08/27/17 07/14/20 History buPROPion HCl [Wellbutrin] 200 mg PO BID 08/27/17 07/14/20 History Dexamethasone [Decadron] 6 mg PO Q24H #5 tablet 07/19/20 Rx Heparin Sodium,Porcine/PF [Heparin 5,000 unit SQ BID #14 syringe 07/19/20 Rx Sod 5,000 Unit/0.5 ml] Allergies: No Known Allergies Allergy (Unverified 08/27/17 11:40) - Discharge Instructions Activity:: Activity as Tolerated Additional Therapy Instructions:: oxygen supplementation to keep pox above 93 % - Follow up Plan Referrals: Endy Kennedy MD [Primary Care Provider] - Disposition: SENIOR CARE/ASSISTED LIVING
[2020-07-19 16:52] VITALS: BP 137/89; TEMP 98.3
== END 2020-07-19 18:49 | DRG 177 ==
LOC: ERS 05:24 → T4-A 15:07
PROVIDERS: ADMIT Internal Medicine; ATTEND Internal Medicine
PROC: 8E0ZXY6 Isolation (ICD-10-PCS; principal; 2020-07-14)
PROC: XW033E5 Introduction of Remdesivir Anti-infective into Peripheral Vein, Percutaneous Approach, New Technology Group 5 (ICD-10-PCS; 2020-07-15)
DX: U07.1 COVID-19 (principal); J96.01 Acute respiratory failure with hypoxia; J12.82 Pneumonia due to coronavirus disease 2019; I10 Essential (primary) hypertension; F90.9 Attention-deficit hyperactivity disorder, unspecified type; K21.9 Gastro-esophageal reflux disease without esophagitis; F41.9 Anxiety disorder, unspecified; F31.9 Bipolar disorder, unspecified; F17.210 Nicotine dependence, cigarettes, uncomplicated; B18.2 Chronic viral hepatitis C; M54.5 Low back pain; G89.29 Other chronic pain; R19.7 Diarrhea, unspecified; Z79.899 Other long term (current) drug therapy
CPT/HCPCS: 36415; 71045; 80048; 80053; 80076; 82728; 83605; 83735; 83880; 84484; 85025; 85379; 85610; 85652; 85730; 86140; 87040; 87077; 87149; 87186; 93005; 94760; J0456; J1100; J1650; J7050

== ENCOUNTER 2020-08-06 21:30 | Inpatient (IN) | payer MEDICARE, MEDICAID ==
[~2020-08-06 21:30] MED LIST: Iopamidol-370 76% 500 ML 1 ML ONE
[2020-08-06] MEDS ORDERED: Dexamethasone 4 mg/ml Vial ONE (22:17)
[2020-08-06 22:22] LABS: Mean Corpuscular HGB CONC 33.1 g/dL (32.0-36.0); Mean Corpuscular Hemoglobin 31.3 pg (27.0-31.0); Mean Corpuscular Volume 94.7 fL (78.0-98.0); Mean Platelet Volume 9.4 fL (7.4-10.4); Platelet Count 95 thou/uL (130-400); RBC Distribution Width 13.5 % (11.5-14.5); Red Blood Cell (RBC) Count 3.82 mill/uL (4.70-6.10); White Blood Cell (WBC) Count 14.5 thou/uL (4.8-10.8)
[2020-08-06 22:27] LABS: PTT 25.4 sec (22.9-36.1); Prothrombin Time 13.7 sec (12.0-14.7)
[2020-08-06 22:41] LABS: ALT (SGPT) 37 U/L (8-55); AST (SGOT) 42 U/L (5-34); Alkaline Phosphatase 131 U/L (40-110); Anion Gap 15 mmol/L (10-20); BUN (Urea Nitrogen) 22 mg/dL (8.4-25.7); Bilirubin, Total 0.6 mg/dL (0.2-1.2); Calc. Creatinine Clearance 0 mL/min (70-130); Calcium 8.3 mg/dL (7.8-10.44); Carbon Dioxide 21 mmol/L (23-31); Chloride 109 mmol/L (98-107); Globulin 3.2 g/dL (2.4-3.5); Glucose 108 mg/dL (80-115); Potassium 4.6 mmol/L (3.5-5.1); Protein, Total 6.2 g/dL (5.8-8.1); Sodium 140 mmol/L (136-145)
[2020-08-06 22:49] LABS: Band 1 % (5-11); Hypochromia SLIGHT = 6-15 cells (100X) (0-5/hpf); Lymphocytes 18 % (21-51); MDiff Complete? YES; Metamyelocyte 1 % (0-0); Monocytes 12 % (0-10); Neutrophil 68 % (42-75); Platelet Morphology Comment Appears Decreased
[2020-08-06 23:00] LABS: Actual Bicarbonate (HCO3a) 21.5 mEq/L (22-28); Analyzer IN Cardio ER; Base Excess (BEa) -1.2 mEq/L (-2.0 to +3.0); CO2 Tension 30.4 mmHg (35.0-45.0); Calcium, Ionized (arterial) 1.14 mmol/L (1.12-1.30); Carboxyhemoglobin (COHb) 0.8 gm% (0.0-3.0); Hemoglobin (Hb) 13.3 g/dL (14.0-18.0); O2 Tension (PaO2), arterial 60.8 mmHg (> 80.0); Potassium - ABG Lab 3.93 mmol/L (3.70-5.30); pH, Arterial 7.47 (7.35-7.45)
[2020-08-06 23:01] LABS: Puncture Site LBA
[2020-08-06 23:14] LABS: CKMB 17.2 ng/mL (0-6.6)
[2020-08-06] MEDS ORDERED: Enoxaparin Sodium 100 MG/ML SYRINGE ONE (23:14)
[2020-08-07 01:21] LABS: Lactic Acid 1.2 mmol/L (0.5-2.2)
[2020-08-07 01:32] LABS: Critical Call Chem Troponin I RESULT DECREASING
[2020-08-07] MEDS ORDERED: Lorazepam 2 MG/ML VIAL SLOW IVP SCH (03:30)
[2020-08-07] MEDS ORDERED: Lorazepam 2 MG/ML VIAL ONE ×4 (03:32→20:28)
[2020-08-07] MEDS ORDERED: HYDROcodone/Acetaminophen 5/325 mg Tablet PO PRN (04:05)
[2020-08-07] MEDS ORDERED: cloNIDine 0.1 MG TAB PO PRN (04:05)
[2020-08-07] MEDS ORDERED: Ondansetron PF 4 MG/2 ML Vial IVP PRN (04:05)
[2020-08-07] MEDS ORDERED: Labetalol HCl 100 MG/20 ML VIAL SLOW IVP PRN (04:05)
[2020-08-07] MEDS ORDERED: hydrALAZINE 20 MG/ML VIAL SLOW IVP PRN (04:05)
[2020-08-07] MEDS ORDERED: Guaifenesin DM 100-10/5 ML UDCUP PO PRN (04:05)
[2020-08-07] MEDS ORDERED: Promethazine HCl 12.5 MG in Sodium Chloride 0.9% 50 ML IVPB PRN (04:05)
[2020-08-07] MEDS ORDERED: Electrolyte Replacement Protocol 1 EACH FS PRN (04:15)
--- NOTE | 2020-08-07 04:18 | PDOC.HHP ---
Hospitalist HPI - History of Present Illness Respiratory failure History of Present Illness: 70-year-old man male senior care resident presents to the emergency department via EMS with complaints of shortness of breath. Patient was diagnosed with Covid 19 on July 05. He was admitted to the hospital a week later for worsening shortness of breath and discharged after several days of IV steroids and remdesivir treatment. Patient has been doing well since then. Tonight he was feeling mildly to moderately short of breath and senior care staff checked his oxygen saturation which was as low as 50%. EMS was called and upon arrival he was satting 60% on room air. They placed a nonrebreather and got his saturation as high as 85%. Throughout all this time the patient was speaking in full clear sentences, had essentially clear breath sounds, and was not showing signs of respiratory distress. He denies any recent cough, fever, chills, chest pain. In ED, tachycardic and tachypneic ,advanced to BIPAP to maintain saturations, when I see patient he is anxious due to BIPAP claustrophobia. WBC 14.5, hgb 12, plt 95, TnI 1.2, patient admitted for respiratory failure. Hospitalist ROS - Review of Systems Constitutional: reports: weakness, malaise. denies: fever, chills, sweats, other Eyes: denies: pain, vision change, conjunctivae inflammation, eyelid inflammation, redness, other ENT: denies: ear pain, ear discharge, nose pain, nose discharge, nose congestion, mouth pain, mouth swelling, throat pain, throat swelling, other Respiratory: reports: cough, shortness of breath, SOB with excertion. denies: dry, hemoptysis, pleuritic pain, sputum, wheezing, other Cardiovascular: denies: chest pain, palpitations, orthopnea, paroxysmal noc. dyspnea, edema, light headedness, other Gastrointestinal: denies: nausea, vomiting, abdominal pain, diarrhea, constipation, melena, hematochezia, other Genitourinary: denies: dysuria, frequency, incontinence, hematuria, retention, other Musculoskeletal: denies: neck pain, shoulder pain, arm pain, back pain, hand stalin n, leg pain, foot pain, other Skin: denies: rash, lesions, leeroy, bruising, other Neurological: denies: weakness, numbness, incoordination, change in speech, confusion, seizures, other All other systems reviewed; all pertinent +/- noted in HPI/Subj - Medication Medications: ALPRAZolam ThuAug 06, 2020 22:33 Javier RN, Daniel tablet : Strength - 0.5 mg : ORAL Patient Dose: Unknown. dextroamphetamine-amphetamine ThuAug 06, 2020 22:33 Javier RN, Daniel tablet : Strength - 30 mg : ORAL Patient Dose: Unknown. buPROPion HCl ThuAug 06, 2020 22:33 Javier RN, Daniel tablet : Strength - 100 mg : ORAL Patient Dose: Unknown. dexamethasone ThuAug 06, 2020 22:33 Javier RN, Daniel tablet : Strength - 6 mg : ORAL Patient Dose: Unknown. guaiFENesin ThuAug 06, 2020 22:33 Javier RN, Daniel liquid : Strength - 100 mg/5 mL : ORAL Patient Dose: Unknown. lisinopril ThuAug 06, 2020 22:33 Javier RN, Daniel tablet : Strength - 10 mg : ORAL Patient Dose: Unknown. loperamide ThuAug 06, 2020 22:34 Javier RN, Daniel capsule : Strength - 2 mg : ORAL Patient Dose: 2 times a day.PRN. aspirin oral ThuAug 06, 2020 22:34 Javier RN, Daniel tablet : Strength - 81 mg : ORAL Patient Dose: 2 times a day. Lyrica ThuAug 06, 2020 22:35 Javier RN, Daniel capsule : Strength - 75 mg : ORAL Patient Dose: 3 times a day. omeprazole ThuAug 06, 2020 22:35 Javier RN, Daniel capsule,delayed release(DR/EC) : Strength - 20 mg : ORAL Patient Dose: once a day. ProAir HFA ThuAug 06, 2020 22:35 Javier RN, Daniel HFA aerosol inhaler : Strength - 90 mcg : INHALATION Patient Dose: every 4 hours prn. Tylenol ThuAug 06, 2020 22:36 Javier RN, Daniel capsule : Strength - 325 mg : ORAL Patient Dose: 1 g Oral every 6 hours PRN. acetaminophen-codeine ThuAug 06, 2020 22:36 Javier RN, Daniel tablet : Strength - 300 mg-60 mg : ORAL Patient Dose: 4 times a day. Vitamin D3 ThuAug 06, 2020 22:37 Javier RN, Daniel capsule : Strength - 2,000 unit : ORAL Patient Dose: once a day. Hospitalist History - Past Medical History Other Medical History: EXTRAPYRAMIDAL AND MOVEMENT DISORDER, INSOMNIA, DEMENTIA, ACUTE RESP FAILURE, MDD, HEP C, HTN, ADHD, GERD, DEPRESSION., MDD, ANXIETY, BIPOLAR. - Past Surgical History Other Surgical History: SKIN GRAFTS TO R LEG- 2001, Surgical history of tonsillectomy. - Family History Family History: reports: no pertinent history - Social History Smoking Status: Current every day smoker Alcohol: reports: None Drugs: reports: none - Exam General - other findings: on bipap, anxious Eye: PERRL, anicteric sclera ENT: normocephalic atraumatic, moist mucosa Neck: supple, no JVD Heart: RRR, no murmur, no gallops Respiratory: CTAB, no wheezes, no rales, no ronchi Gastrointestinal: soft, non-tender, non-distended Extremities: no cyanosis, no clubbing, no edema Skin: no lesions, no rashes Neurological - other findings: anxious, moving all extremities, no focal deficits Musculoskeletal: normal strength, no muscle wasting Psychiatric - other findings: unable to evaluate, on bipap Hospitalist Results - Labs Result Diagrams: 08/06/20 22:07 08/06/20 22:07 Lab results: WBC 14.5 thou/uL (4.8-10.8) H 08/06/20 22:07 Hgb 12.0 g/dL (14.0-18.0) L 08/06/20 22:07 Hct 36.2 % (42.0-52.0) L 08/06/20 22:07 MCV 94.7 fL (78.0-98.0) 08/06/20 22:07 Plt Count 95 thou/uL (130-400) L 08/06/20 22:07 Band Neuts % (Manual) 1 % (5-11) L 08/06/20 22:07 ESR Westergren 26 mm/hr (Less than 20) H 08/06/20 22:07 ABG pH 7.47 (7.35-7.45) H 08/06/20 22:04 ABG pCO2 30.4 mmHg (35.0-45.0) L 08/06/20 22:04 ABG pO2 60.8 mmHg (> 80.0) 08/06/20 22:04 Sodium 140 mmol/L (136-145) 08/06/20 22:07 Potassium 4.6 mmol/L (3.5-5.1) 08/06/20 22:07 Chloride 109 mmol/L (98-107) H 08/06/20 22:07 Carbon Dioxide 21 mmol/L (23-31) L 08/06/20 22:07 BUN 22 mg/dL (8.4-25.7) 08/06/20 22:07 Creatinine 1.02 mg/dL (0.7-1.3) 08/06/20 22:07 Glucose 108 mg/dL (80-115) 08/06/20 22:07 Lactic Acid 1.2 mmol/L (0.5-2.2) 08/07/20 00:54 Calcium 8.3 mg/dL (7.8-10.44) 08/06/20 22:07 Total Bilirubin 0.6 mg/dL (0.2-1.2) 08/06/20 22:07 AST 42 U/L (5-34) H 08/06/20 22:07 ALT 37 U/L (8-55) 08/06/20 22:07 Alkaline Phosphatase 131 U/L (40-110) H 08/06/20 22:07 CK-MB (CK-2) 17.2 ng/mL (0-6.6) H* 08/06/20 22:07 Troponin I 1.140 ng/mL (< 0.028) H* 08/07/20 00:54 C-Reactive Protein 8.10 mg/dL (= or < 0.5) H 08/06/20 22:07 B-Natriuretic Peptide 97.0 pg/mL (0-100) 08/06/20 22:07 Serum Total Protein 6.2 g/dL (5.8-8.1) 08/06/20 22:07 Albumin 3.0 g/dL (3.4-4.8) L 08/06/20 22:07 Additional comment: VITAL SIGNS ThuAug 07, 2020 00:44 Javier RN, Des BP: 122/85 Pulse: 111 Resp: 24 Temp: 99.7 (Oral) Pain: 4 O2 sat: 94 on (Bipap) Time: 08/07/2020 00:44. Hospitalist H&P A/P - Plan Plan: 70-year-old man male senior care resident presents to the emergency department via EMS with complaints of shortness of breath. # COVID 19 # acute hypoxic respiratory failure # leukocytosis Patient was diagnosed with Covid 19 on July 05. He was admitted to the hospital a week later for worsening shortness of breath and discharged after several days of IV steroids and remdesivir treatment. Patient has been doing well since then. Tonight he was feeling mildly to moderately short of breath and senior care staff checked his oxygen saturation which was as low as 50%. EMS was called and upon arrival he was satting 60% on room air. They placed a nonrebreather and got his saturation as high as 85%. In ED, tachycardic and tachypneic ,advanced to BIPAP to maintain saturations, when I see patient he is anxious due to BIPAP claustrophobia. WBC 14.5, hgb 12, plt 95, TnI 1.2, patient admitted for respiratory failure. - admit to ICU - continue BIPAP - consult pulmonary # anxiety - PRN ativan, precedex # PE - CT final real pending, however had PE on it on prelim ED read # thrombocytopenia - start lovenox therapeutic # HCV # HTN # MDD # ADHD # depression # anxiert # bipolar - resume home meds as appropriate 54 minuters critical care time
[2020-08-07 05:10] LABS: Troponin I 0.811 ng/mL (< 0.028)
[2020-08-07] MEDS: Lorazepam 2 MG/ML VIAL SLOW IVP PRN ×3 (05:35→20:35)
[2020-08-07] MEDS ORDERED: [UNRECOGNIZED DRUG - OTHER] PO SCH (06:00)
[2020-08-07] MEDS ORDERED: ACETAMINOPHEN WITH CODEINE PO SCH (06:00)
[2020-08-07] MEDS ORDERED: HYDROcodone/Acetaminophen 5/325 mg Tablet ONE ×3 (06:07→21:11)
[2020-08-07] MEDS: HYDROcodone/Acetaminophen 5/325 mg Tablet PO SCH ×3 (06:10→21:15)
--- NOTE | 2020-08-07 07:19 | RAD ---
AP CHEST: Date: 08/06/2020 HISTORY: Hypoxia. Shortness of breath. COMPARISON: 07/14/2020. FINDINGS: There are persistent bilateral interstitial and hazy alveolar infiltrates. These have progressed when compared to the prior study. They are seen predominantly in the peripheral right lung and involving all lobes and in the left mid lung and left lower lung. There is cardiomegaly and mild vascular conge stion. IMPRESSION: Persistent bilateral hazy infiltrates consistent with COVID pneumonia. POS: AGW
--- NOTE | 2020-08-07 07:33 | CT ---
CTA CHEST WITH CONTRAST: Date: 08/06/2020 Axial tomograms obtained with multiplanar reconstruction following angio protocol with multiplanar re construction and 3D postprocessing. INDICATION: Hypoxia. COVID pneumonia. FINDINGS: Pulmonary arteries show adequate opacification. There are bilateral pulmonary emboli. There are emboli seen extending into the left interlobar pulmon ashley artery with emboli extending into left lower lobe arteries. At least one left upper lobe emboli i s seen as well. Emboli seen in the right main pulmonary artery and the right interlobar pulmonary artery with emboli extending into the right upper lobe, middle lobe, and lower lobe arteries. Thoracic aorta unremarkable with atherosclerotic change. Mediastinal and hilar adenopathy. Lung flores show diffuse interstitial and hazy alveolar opacities throughout both lungs. Crazy-pavin g pattern seen bilaterally. The findings are consistent with COVID pneumonia. IMPRESSION: 1. Bilateral extensive pulmonary emboli. 2. Bilateral infiltrates consistent with COVID pneumonia. Findings relayed to Dr. Villalpando. CODE CR. POS: TONIA
[2020-08-07] MEDS ORDERED: Mometasone 100 MCG/Formoterol 5 MCG 120 PUFF INHALER ONE (08:51)
[2020-08-07] MEDS: Mometasone 100 MCG/Formoterol 5 MCG 120 PUFF INHALER INH SCH ×2 (09:32→20:26)
[2020-08-07] MEDS ORDERED: Cholecalciferol 1,000 UNITS (25 MCG) TAB ONE (09:44)
[2020-08-07] MEDS ORDERED: Lisinopril 10 MG TAB ONE (09:44)
[2020-08-07] MEDS: Lisinopril 10 MG TAB PO SCH (10:03)
[2020-08-07] MEDS: Cholecalciferol 1,000 UNITS (25 MCG) TAB PO SCH (10:03)
[2020-08-07] MEDS: buPROPion HCl 100 MG TAB PO SCH ×2 (10:03→22:13)
[2020-08-07] MEDS: Enoxaparin Sodium 120 MG/0.8 ML SYRINGE SC SCH ×2 (10:03→22:13)
[2020-08-07] MEDS: Polyethylene Glycol 3350 17 GM Packet PO SCH (10:04)
[2020-08-07] MEDS: Pregabalin 75 MG CAP PO SCH ×3 (10:07→22:12)
--- NOTE | 2020-08-07 18:24 | PDOC.HOSPP ---
- Subjective Encounter Date: 08/07/20 Encounter Time: 18:05 Subjective: f/u for COVID PNA/Bilateral PE's on current BiPAP NIMV with 75% FIO2. Receiving Lovenox/Dexamethasone/Duonebs. - Objective Vital Signs & Weight: Vital Signs (12 hours) Temp Pulse Resp BP BP Pulse Ox 08/07/20 14:50 61 26 H 91 L 08/07/20 13:00 98.8 F 08/07/20 11:37 75 25 H 93 L 08/07/20 10:56 73 26 H 97/78 93 L 08/07/20 10:03 117/85 08/07/20 10:00 93 28 H 117/85 86 L 08/07/20 09:30 70 23 H 120/76 08/07/20 09:00 73 35 H 108/80 08/07/20 08:30 76 39 H 100/66 08/07/20 08:00 77 26 H 116/57 L 08/07/20 07:30 79 29 H 101/76 08/07/20 07:00 97.7 F 93 28 H 132/111 H Most Recent Monitor Data Heart Rate from ECG 69 NIBP 104/73 NIBP BP-Mean 83 Respiration from ECG 29 SpO2 91 Result Diagrams: 08/06/20 22:07 08/06/20 22:07 Radiology Reviewed by me: Yes (CT PE - + bilat extensive PE's, infiltrates) EKG Reviewed by me: Yes (Tele - SR) Hospitalist ROS - Medication Medications: Active Medications Generic Name Dose Route Start Last Admin Trade Name Freq PRN Reason Stop Dose Admin Hydrocodone Bitart/Acetaminophen 1 tab 08/07/20 06:00 08/07/20 14:48 Hydrocodone/Acetaminophen 5/325 Mg Tablet PO 1 tab Q6HR SAVANNA Administration Bupropion HCl 200 mg 08/07/20 09:00 08/07/20 10:03 Bupropion Hcl 100 Mg Tab PO 200 mg BID SAVANNA Administration Cholecalciferol 2,000 units 08/07/20 09:00 08/07/20 10:03 Cholecalciferol 1,000 Units (25 Mcg) Tab PO 2,000 units DAILY SAVANNA Administration Enoxaparin Sodium 110 mg 08/07/20 09:00 08/07/20 10:03 Enoxaparin Sodium 120 Mg/0.8 Ml Syringe SC Not Given 0900,2099 [facility] Dexmedetomidine HCl 400 mcg/ 100 mls @ 0 mls/hr 08/07/20 04:00 08/07/20 05:40 Sodium Chloride IVPB 100 mls INF SAVANNA Administration Protocol Per Protocol Lisinopril 10 mg 08/07/20 09:00 08/07/20 10:03 Lisinopril 10 Mg Tab PO 10 mg QAM SAVANNA Administration Lorazepam 1 mg 08/07/20 04:07 08/07/20 16:27 Lorazepam 2 Mg/Ml Vial SLOW IVP 1 mg Q4H PRN Administration Anxiety/Agitation Mometasone Furoate/Formoterol Fumar 1 puff 08/07/20 06:30 08/07/20 09:32 Mometasone 100 Mcg/Formoterol 5 Mcg 120 Puff Inhaler INH 1 puff BID-RT SAVANNA Administration Pantoprazole Sodium 40 mg 08/07/20 09:00 08/07/20 10:04 Pantoprazole 40 Mg Tab PO 40 mg DAILY SAVANNA Administration Polyethylene Glycol 17 gm 08/07/20 09:00 08/07/20 10:04 Polyethylene Glycol 3350 17 Gm Packet PO Not Given DAILY SAVANNA Pregabalin 75 mg 08/07/20 09:00 08/07/20 16:15 Pregabalin 75 Mg Cap PO 75 mg TID SAVANNA Administration Hospitalist Exam Vitals: Vital Signs (12 hours) Temp Pulse Resp BP BP Pulse Ox 08/07/20 14:50 61 26 H 91 L 08/07/20 13:00 98.8 F 08/07/20 11:37 75 25 H 93 L 08/07/20 10:56 73 26 H 97/78 93 L 08/07/20 10:03 117/85 08/07/20 10:00 93 28 H 117/85 86 L 08/07/20 09:30 70 23 H 120/76 08/07/20 09:00 73 35 H 108/80 08/07/20 08:30 76 39 H 100/66 08/07/20 08:00 77 26 H 116/57 L 08/07/20 07:30 79 29 H 101/76 08/07/20 07:00 97.7 F 93 28 H 132/111 H Most Recent Monitor Data Heart Rate from ECG 69 NIBP 104/73 NIBP BP-Mean 83 Respiration from ECG 29 SpO2 91 General Appearance: ill appearing General - other findings: somnolent Eye: PERRL, anicteric sclera ENT: normocephalic atraumatic, no oropharyngeal lesions ENT - other findings: BiPAP NIMV in place Neck: supple, symmetric, no JVD, no thyromegaly, no lymphadenopathy Heart: RRR, no gallops, no rubs, normal peripheral pulses Heart - other findings: S1, S2 Respiratory: no ronchi, tachypneic Respiratory - other findings: diminished bilat, scattered coarse sounds Gastrointestinal: soft, non-tender, non-distended, normal bowel sounds, no palpable masses Extremities: no cyanosis, no clubbing, no edema Skin: normal turgor Neurological: cranial nerve grossly intact, no new deficit Musculoskeletal: normal tone, generalized weakness Psychiatric: oriented to person, oriented to place, somnolent Hosp A/P (1) Acute respiratory failure with hypoxemia Code(s): J96.01 - ACUTE RESPIRATORY FAILURE WITH HYPOXIA Status: Acute Plan: Continue BiPAP NIMV, titrate to clinical response (2) Bilateral pulmonary embolism Code(s): I26.99 - OTHER PULMONARY EMBOLISM WITHOUT ACUTE COR PULMONALE Status: Acute Plan: Continue Lovenox 110mg BID, BiPAP NIMV (3) Pneumonia due to COVID-19 virus Code(s): U07.1 - COVID-19; J12.82 - PNEUMONIA DUE TO CORONAVIRUS DISEASE 2018 Status: Acute Plan: Suspected given hx of COVID and persistent infiltrates, continue Dexamethasone/Duonebs (4) Type 2 myocardial infarction Code(s): I21.A1 - MYOCARDIAL INFARCTION TYPE 2 Status: Acute Plan: Suspect due to PE's and demand ischemia with concomitant PNA, conservative mgmt (5) Acute renal failure Status: Acute Plan: Likely multifactorial given presentation, avoid nephrotoxic meds and limit contrast exposure - Plan social sciences instructor, respiratory therapy, DVT proph w/SCDs Continue pulmonary support with BiPAP Continue Dexamethasone Continue Duonebs Continue Lovenox 110mg sc BID Isolation protocol AM lab: BMP, CBC, Mg++, D-dimer, Ferritin
[2020-08-07] MEDS ORDERED: ALPRAZolam 0.5 MG TAB ONE (21:28)
[2020-08-07] MEDS ORDERED: Dexamethasone 4 mg/ml Vial ONE (22:05)
[2020-08-07] MEDS: ALPRAZolam 0.5 MG TAB PO SCH (22:13)
[2020-08-07] MEDS: Dexamethasone 4 mg/ml Vial SLOW IVP SCH (22:13)
[2020-08-08] MEDS ORDERED: Lorazepam 2 MG/ML VIAL ONE (00:12)
[2020-08-08] MEDS: Lorazepam 2 MG/ML VIAL SLOW IVP PRN ×6 (00:21→21:12)
[2020-08-08] MEDS: HYDROcodone/Acetaminophen 5/325 mg Tablet PO SCH ×4 (02:11→20:01)
[2020-08-08 04:58] LABS: #Lymphocytes 0.6 thou/uL (1.20-3.40); #Monocytes 0.5 thou/uL (0.11-0.59); #Neutrophils 8.4 thou/uL (1.40-6.50); %Basophils 0.1 % (0.0-1.0); %Eosinophils 0.2 % (0.0-10.0); %Lymphocytes 6.2 % (21.0-51.0); %Monocytes 5.4 % (0.0-10.0); %Neutrophils 88.2 % (42.0-75.0); Hemoglobin 12.4 g/dL (14.0-18.0); Mean Corpuscular HGB CONC 31.8 g/dL (32.0-36.0); Mean Corpuscular Hemoglobin 30.7 pg (27.0-31.0); Mean Corpuscular Volume 96.7 fL (78.0-98.0); Mean Platelet Volume 11.1 fL (7.4-10.4); Platelet Count 85 thou/uL (130-400); RBC Distribution Width 13.7 % (11.5-14.5); Red Blood Cell (RBC) Count 4.05 mill/uL (4.70-6.10); White Blood Cell (WBC) Count 9.6 thou/uL (4.8-10.8)
[2020-08-08 05:16] LABS: Anion Gap 15 mmol/L (10-20); BUN (Urea Nitrogen) 34 mg/dL (8.4-25.7); Calc. Creatinine Clearance 120 mL/min (70-130); Calcium 8.5 mg/dL (7.8-10.44); Carbon Dioxide 21 mmol/L (23-31); Chloride 108 mmol/L (98-107); Glucose 93 mg/dL (80-115); Magnesium 2.3 mg/dL (1.6-2.6); Potassium 4.4 mmol/L (3.5-5.1); Sodium 140 mmol/L (136-145)
[2020-08-08] MEDS: Mometasone 100 MCG/Formoterol 5 MCG 120 PUFF INHALER INH SCH ×2 (07:03→17:31)
[2020-08-08] MEDS: Enoxaparin Sodium 120 MG/0.8 ML SYRINGE SC SCH (09:02)
[2020-08-08] MEDS: Cholecalciferol 1,000 UNITS (25 MCG) TAB PO SCH (09:06)
[2020-08-08] MEDS: Polyethylene Glycol 3350 17 GM Packet PO SCH (09:06)
[2020-08-08] MEDS: buPROPion HCl 100 MG TAB PO SCH ×2 (09:06→20:00)
[2020-08-08] MEDS: Pregabalin 75 MG CAP PO SCH ×3 (09:07→20:00)
[2020-08-08] MEDS: Lisinopril 10 MG TAB PO SCH (09:07)
[2020-08-08] MEDS: ALPRAZolam 0.5 MG TAB PO SCH ×3 (09:08→20:00)
[2020-08-08] MEDS ORDERED: Enoxaparin Sodium 120 MG/0.8 ML SYRINGE SC SCH ×2 (13:18→21:00)
--- NOTE | 2020-08-08 13:43 | CON ---
DATE OF CONSULTATION: 08/08/2020 HISTORY OF PRESENT ILLNESS: Russell Abreu is a 70-year-old male. He is admitted with COVID pneumonia and thromboembolic disease. Getting a history from him is difficult because he has BiPAP in place. He was admitted on 07/14 with COVID pneumonia. He was hospitalized from the to the . He is readmitted with thromboembolic disease. He still has abnormalities on his chest radiograph. Apparently, he had a turn for the worse, but prior to this admission, he was doing fairly well. PAST MEDICAL HISTORY: Remarkable for: 1. Hypertension. 2. History of movement disorder. 3. History reportedly of hepatitis C according to old records. 4. History of obesity. 5. History of ADHD and depression. 6. History of skin grafting to his right leg. 7. History of tonsillectomy. SOCIAL HISTORY: He is a smoker, does not smoke more than 2 to 3 cigarettes today according to records. He is not a daily drinker. FAMILY HISTORY: Negative for lung disease in early age. PHYSICAL EXAMINATION: GENERAL: He is afebrile, heart rate is in the 70s, respiratory rates in the teens, oximetry is up to 98%, and blood pressure 155/84. HEAD AND NECK: Unremarkable. LUNGS: Remarkable for equal breath sounds. HEART: Regular rhythm. ABDOMEN: Soft. EXTREMITIES: Without asymmetry. LABORATORY DATA: White count 9.6, hemoglobin 12.4, and platelets 85,000. Sodium 140, potassium 4.4, chloride 108, bicarb 21, BUN 34, and creatinine 0.85. IMPRESSION: 1. Thromboembolic disease. His admission is unlikely to be because of COVID. It sounds like he was doing reasonably well and then he probably turned for the worse with the development of pulmonary emboli. This on top of the residual infiltrates has probably made him pretty short of breath. We should try to wean him off BiPAP to high-flow with a goal saturation of 90. We will follow. This is a 50 min consult with greater than 50% of the time spent on the unit with coordination of care. Job ID: [id number] MTDD
[2020-08-08] MEDS ORDERED: Enoxaparin Sodium 100 MG/ML SYRINGE SC SCH (14:00)
--- NOTE | 2020-08-08 18:18 | PDOC.HOSPP ---
- Subjective Encounter Date: 08/08/20 Encounter Time: 18:10 Subjective: f/u for bilat PE's/prior COVID-19 tx with Lovenox/BiPAP NIMV with FIO2 70%. - Objective Vital Signs & Weight: Vital Signs (12 hours) Temp Pulse Resp BP BP Pulse Ox 08/08/20 15:57 97.5 F L 110 H 32 H 120/91 H 94 L 08/08/20 12:38 97 24 H 96 08/08/20 10:00 97.4 F L 77 12 155/84 H 98 08/08/20 09:07 98.0 F 128/86 08/08/20 08:00 98 F 93 23 H 128/86 96 08/08/20 07:04 70 22 H Weight Weight 228 lb 6.4 oz Most Recent Monitor Data Heart Rate from ECG 66 NIBP 102/75 NIBP BP-Mean 77 Respiration from ECG 29 SpO2 93 Result Diagrams: 08/08/20 04:26 08/08/20 04:26 Additional Labs: Microbiology 08/06/20 22:07 Venous blood - Right Hand Blood Culture - Preliminary NO GROWTH AT 48 HOURS 08/06/20 22:03 Venous blood - Left Arm Blood Culture - Preliminary Specimen has been received and culture in progress. No Growth to date. Laboratory Tests 08/06/20 08/06/20 08/06/20 22:07 22:07 22:07 WBC 14.5 H Hgb 12.0 L Plt Count 95 L ESR Westergren 26 H D-Dimer Lactic Acid Ferritin Troponin I 1.210 H* 08/07/20 08/07/20 08/07/20 00:54 00:54 04:04 WBC Hgb Plt Count ESR Westergren D-Dimer Lactic Acid 1.2 Ferritin Troponin I 1.140 H* 0.811 H* 08/08/20 08/08/20 04:26 04:26 WBC Hgb Plt Count ESR Westergren D-Dimer 5.56 H Lactic Acid Ferritin 336.11 H Troponin I EKG Reviewed by me: Yes (Tele - SR) Hospitalist ROS - Medication Medications: Active Medications Generic Name Dose Route Start Last Admin Trade Name Freq PRN Reason Stop Dose Admin Hydrocodone Bitart/Acetaminophen 1 tab 08/08/20 08:00 08/08/20 13:08 Hydrocodone/Acetaminophen 5/325 Mg Tablet PO 1 tab 0200,0800,1400,2000 SAVANNA Administration Alprazolam 0.5 mg 08/07/20 21:00 08/08/20 16:15 Alprazolam 0.5 Mg Tab PO 0.5 mg TID SAVANNA Administration Bupropion HCl 200 mg 08/07/20 09:00 08/08/20 09:06 Bupropion Hcl 100 Mg Tab PO 200 mg BID SAVANNA Administration Cholecalciferol 2,000 units 08/07/20 09:00 08/08/20 09:06 Cholecalciferol 1,000 Units (25 Mcg) Tab PO 2,000 units DAILY SAVANNA Administration Dexamethasone 6 mg 08/07/20 22:00 08/07/20 22:13 Dexamethasone 4 Mg/Ml Vial SLOW IVP 6 mg Q24HR SAVANNA Administration Dexmedetomidine HCl 400 mcg/ 100 mls @ 0 mls/hr 08/07/20 04:00 08/07/20 05:40 Sodium Chloride IVPB 100 mls INF SAVANNA Administration Protocol Per Protocol Lisinopril 10 mg 08/07/20 09:00 08/08/20 09:07 Lisinopril 10 Mg Tab PO 10 mg QAM SAVANNA Administration Lorazepam 1 mg 08/07/20 04:07 08/08/20 17:31 Lorazepam 2 Mg/Ml Vial SLOW IVP 1 mg Q4H PRN Administration Anxiety/Agitation Mometasone Furoate/Formoterol Fumar 1 puff 08/07/20 06:30 08/08/20 17:31 Mometasone 100 Mcg/Formoterol 5 Mcg 120 Puff Inhaler INH 1 puff BID-RT SAVANNA Administration Pantoprazole Sodium 40 mg 08/07/20 09:00 08/08/20 09:07 Pantoprazole 40 Mg Tab PO 40 mg DAILY SAVANNA Administration Polyethylene Glycol 17 gm 08/07/20 09:00 08/08/20 09:06 Polyethylene Glycol 3350 17 Gm Packet PO 17 gm DAILY SAVANNA Administration Pregabalin 75 mg 08/07/20 09:00 08/08/20 16:15 Pregabalin 75 Mg Cap PO 75 mg TID SAVANNA Administration Hospitalist Exam Vitals: Vital Signs (12 hours) Temp Pulse Resp BP BP Pulse Ox 08/08/20 15:57 97.5 F L 110 H 32 H 120/91 H 94 L 08/08/20 12:38 97 24 H 96 08/08/20 10:00 97.4 F L 77 12 155/84 H 98 08/08/20 09:07 98.0 F 128/86 08/08/20 08:00 98 F 93 23 H 128/86 96 08/08/20 07:04 70 22 H Weight Weight 228 lb 6.4 oz Most Recent Monitor Data Heart Rate from ECG 66 NIBP 102/75 NIBP BP-Mean 77 Respiration from ECG 29 SpO2 93 General Appearance: ill appearing General - other findings: somnolent on NIMV Eye: PERRL, anicteric sclera ENT: normocephalic atraumatic, no oropharyngeal lesions Neck: supple, symmetric, no JVD, no thyromegaly, no lymphadenopathy Heart: RRR, no gallops, no rubs, normal peripheral pulses Heart - other findings: S1, S2 Respiratory: no wheezes, rhonchi, tachypneic Respiratory - other findings: diminished in bases bilat Gastrointestinal: soft, non-tender, non-distended, normal bowel sounds, no palpable masses Extremities: no cyanosis, no clubbing, no edema Skin: normal turgor Neurological: cranial nerve grossly intact, no new deficit Neurological - other findings: somnolent Musculoskeletal: generalized weakness Psychiatric: somnolent, lethargic Hosp A/P (1) Acute respiratory failure with hypoxemia Code(s): J96.01 - ACUTE RESPIRATORY FAILURE WITH HYPOXIA Status: Acute Plan: Continue BiPAP NIMV, wean as clinically indicated, may consider high-flow NC in 24h (2) Bilateral pulmonary embolism Code(s): I26.99 - OTHER PULMONARY EMBOLISM WITHOUT ACUTE COR PULMONALE Status: Acute Plan: Continue Lovenox 100mg SC BID (3) Pneumonia due to COVID-19 virus Code(s): U07.1 - COVID-19; J12.82 - PNEUMONIA DUE TO CORONAVIRUS DISEASE 2019 Status: Acute Plan: Likely residual from prior exposure in early Aug 02, continue Dexamethasone (4) Type 2 myocardial infarction Code(s): I21.A1 - MYOCARDIAL INFARCTION TYPE 2 Status: Acute Plan: Medical mgmt (5) Acute renal failure Status: Acute Plan: Resolved - Plan executive secretary social welfare, respiratory therapy, DVT proph w/SCDs Continue pulmonary support with BiPAP Continue Dexamethasone Continue Duonebs Continue Lovenox 100mg sc BID AM lab: BMP, CBC, Mg++, D-dimer, Ferritin
[2020-08-08] MEDS: Enoxaparin Sodium 100 MG/ML SYRINGE SC SCH (21:13)
[2020-08-08] MEDS: Dexamethasone 4 mg/ml Vial SLOW IVP SCH (22:17)
[2020-08-08] MEDS: Morphine 2 MG/ML VIAL SLOW IVP PRN (22:19)
[2020-08-09] MEDS: Lorazepam 2 MG/ML VIAL SLOW IVP PRN ×5 (00:56→23:13)
[2020-08-09] MEDS: HYDROcodone/Acetaminophen 5/325 mg Tablet PO SCH ×4 (01:31→20:16)
[2020-08-09 05:20] LABS: #Eosinphils 0.1 thou/uL (0.0-0.7); #Lymphocytes 0.5 thou/uL (1.20-3.40); #Monocytes 0.3 thou/uL (0.11-0.59); #Neutrophils 7.8 thou/uL (1.40-6.50); %Basophils 0.4 % (0.0-1.0); %Eosinophils 0.7 % (0.0-10.0); %Lymphocytes 6.1 % (21.0-51.0); %Monocytes 3.6 % (0.0-10.0); %Neutrophils 89.2 % (42.0-75.0); Hemoglobin 12.6 g/dL (14.0-18.0); Mean Corpuscular HGB CONC 30.9 g/dL (32.0-36.0); Mean Corpuscular Hemoglobin 29.7 pg (27.0-31.0); Mean Corpuscular Volume 95.9 fL (78.0-98.0); Mean Platelet Volume 10.4 fL (7.4-10.4); Platelet Count 81 thou/uL (130-400); RBC Distribution Width 13.9 % (11.5-14.5); Red Blood Cell (RBC) Count 4.26 mill/uL (4.70-6.10); White Blood Cell (WBC) Count 8.8 thou/uL (4.8-10.8)
[2020-08-09 05:36] LABS: Anion Gap 16 mmol/L (10-20); BUN (Urea Nitrogen) 33 mg/dL (8.4-25.7); Calc. Creatinine Clearance 131 mL/min (70-130); Calcium 8.9 mg/dL (7.8-10.44); Carbon Dioxide 20 mmol/L (23-31); Chloride 107 mmol/L (98-107); Glucose 102 mg/dL (80-115); Magnesium 2.3 mg/dL (1.6-2.6); Potassium 5.1 mmol/L (3.5-5.1); Sodium 138 mmol/L (136-145)
[2020-08-09] MEDS: buPROPion HCl 100 MG TAB PO SCH ×2 (08:02→20:17)
[2020-08-09] MEDS: ALPRAZolam 0.5 MG TAB PO SCH ×3 (08:02→20:16)
[2020-08-09] MEDS: Pregabalin 75 MG CAP PO SCH ×3 (08:04→20:16)
[2020-08-09] MEDS: Lisinopril 10 MG TAB PO SCH (08:04)
[2020-08-09] MEDS: Cholecalciferol 1,000 UNITS (25 MCG) TAB PO SCH (08:04)
[2020-08-09] MEDS: Polyethylene Glycol 3350 17 GM Packet PO SCH (08:04)
[2020-08-09] MEDS: Mometasone 100 MCG/Formoterol 5 MCG 120 PUFF INHALER INH SCH ×2 (08:36→20:21)
[2020-08-09] MEDS: Enoxaparin Sodium 100 MG/ML SYRINGE SC SCH ×2 (08:49→20:17)
--- NOTE | 2020-08-09 14:54 | PDOC.HOSPP ---
- Subjective Encounter Date: 08/09/20 Encounter Time: 14:30 Subjective: f/u COVID-19/bilat PE's/hypoxic resp failure on BiPAP NIMV FIO2 60%. States mouth is very dry from the BiPAP. - Objective Vital Signs & Weight: Vital Signs (12 hours) Temp Pulse Resp BP Pulse Ox 08/09/20 12:00 97.8 F 98 19 130/78 93 L 08/09/20 11:58 18 08/09/20 09:53 100 22 H 135/96 H 93 L 08/09/20 08:03 19 94 L 08/09/20 08:00 98.6 F 100 21 H 145/76 H 96 08/09/20 06:00 98.2 F 95 26 H 129/89 95 08/09/20 04:00 98.7 F 105 H 20 133/90 97 Weight Weight 228 lb 6.4 oz Most Recent Monitor Data Heart Rate from ECG 66 NIBP 102/75 NIBP BP-Mean 77 Respiration from ECG 29 SpO2 93 Result Diagrams: 08/09/20 04:28 08/09/20 04:28 Additional Labs: Microbiology 08/06/20 22:07 Venous blood - Right Hand Blood Culture - Preliminary NO GROWTH AT 48 HOURS 08/06/20 22:03 Venous blood - Left Arm Blood Culture - Preliminary Specimen has been received and culture in progress. No Growth to date. 08/06/20 22:03 Venous blood - Left Arm Blood Culture - Preliminary Gram Positive Cocci Laboratory Tests 08/06/20 08/06/20 08/06/20 22:07 22:07 22:07 WBC 14.5 H Hgb 12.0 L Plt Count 95 L ESR Westergren 26 H D-Dimer Lactic Acid Ferritin Troponin I 1.210 H* 08/07/20 08/07/20 08/07/20 00:54 00:54 04:04 WBC Hgb Plt Count ESR Westergren D-Dimer Lactic Acid 1.2 Ferritin Troponin I 1.140 H* 0.811 H* 08/08/20 08/08/20 04:26 04:26 WBC Hgb Plt Count ESR Westergren D-Dimer 5.56 H Lactic Acid Ferritin 336.11 H Troponin I EKG Reviewed by me: Yes (Tele - SR) Hospitalist ROS - Medication Medications: Active Medications Generic Name Dose Route Start Last Admin Trade Name Freq PRN Reason Stop Dose Admin Hydrocodone Bitart/Acetaminophen 1 tab 08/08/20 08:00 08/09/20 14:42 Hydrocodone/Acetaminophen 5/325 Mg Tablet PO 1 tab 0200,0800,1400,2000 SAVANNA Administration Alprazolam 0.5 mg 08/07/20 21:00 08/09/20 14:44 Alprazolam 0.5 Mg Tab PO 0.5 mg TID SAVANNA Administration Bupropion HCl 200 mg 08/07/20 09:00 08/09/20 08:02 Bupropion Hcl 100 Mg Tab PO 200 mg BID SAVANNA Administration Cholecalciferol 2,000 units 08/07/20 09:00 08/09/20 08:04 Cholecalciferol 1,000 Units (25 Mcg) Tab PO 2,000 units DAILY SAVANNA Administration Dexamethasone 6 mg 08/07/20 22:00 08/08/20 22:17 Dexamethasone 4 Mg/Ml Vial SLOW IVP 6 mg Q24HR SAVANNA Administration Enoxaparin Sodium 100 mg 08/08/20 21:00 08/09/20 08:49 Enoxaparin Sodium 100 Mg/Ml Syringe SC Not Given 0900,2099 [facility] Dexmedetomidine HCl 400 mcg/ 100 mls @ 0 mls/hr 08/07/20 04:00 08/07/20 05:40 Sodium Chloride IVPB 100 mls INF SAVANNA Administration Protocol Per Protocol Lisinopril 10 mg 08/07/20 09:00 08/09/20 08:04 Lisinopril 10 Mg Tab PO 10 mg QAM SAVANNA Administration Lorazepam 1 mg 08/07/20 04:07 08/09/20 00:56 Lorazepam 2 Mg/Ml Vial SLOW IVP 1 mg Q4H PRN Administration Anxiety/Agitation Mometasone Furoate/Formoterol Fumar 1 puff 08/07/20 06:30 08/09/20 08:36 Mometasone 100 Mcg/Formoterol 5 Mcg 120 Puff Inhaler INH 1 puff BID-RT SAVANNA Administration Morphine Sulfate 2 mg 08/07/20 04:05 08/08/20 22:19 Morphine 2 Mg/Ml Vial SLOW IVP 2 mg Q4H PRN Administration severe pain 4-10 Pantoprazole Sodium 40 mg 08/07/20 09:00 08/09/20 08:05 Pantoprazole 40 Mg Tab PO 40 mg DAILY SAVANNA Administration Polyethylene Glycol 17 gm 08/07/20 09:00 08/09/20 08:04 Polyethylene Glycol 3350 17 Gm Packet PO 17 gm DAILY SAVANNA Administration Pregabalin 75 mg 08/07/20 09:00 08/09/20 14:43 Pregabalin 75 Mg Cap PO 75 mg TID SAVANNA Administration Hospitalist Exam Vitals: Vital Signs (12 hours) Temp Pulse Resp BP Pulse Ox 08/09/20 12:00 97.8 F 98 19 130/78 93 L 08/09/20 11:58 18 08/09/20 09:53 100 22 H 135/96 H 93 L 08/09/20 08:03 19 94 L 08/09/20 08:00 98.6 F 100 21 H 145/76 H 96 08/09/20 06:00 98.2 F 95 26 H 129/89 95 08/09/20 04:00 98.7 F 105 H 20 133/90 97 Weight Weight 228 lb 6.4 oz Most Recent Monitor Data Heart Rate from ECG 66 NIBP 102/75 NIBP BP-Mean 77 Respiration from ECG 29 SpO2 93 General Appearance: awake alert, ill appearing General - other findings: responsive to questions, pulling at BiPAP mask Eye: PERRL, anicteric sclera ENT: normocephalic atraumatic, no oropharyngeal lesions Neck: supple, symmetric, no JVD, no thyromegaly, no lymphadenopathy Heart: RRR, no gallops, no rubs, normal peripheral pulses Heart - other findings: S1, S2 Respiratory: no tachypnea Respiratory - other findings: diminished in bases Gastrointestinal: soft, non-tender, non-distended, normal bowel sounds, no palpable masses Extremities: no cyanosis, no clubbing, no edema Skin: normal turgor Neurological: cranial nerve grossly intact, no new deficit Musculoskeletal: normal tone, generalized weakness Psychiatric: A&O x 3, flat affect Hosp A/P (1) Acute respiratory failure with hypoxemia Code(s): J96.01 - ACUTE RESPIRATORY FAILURE WITH HYPOXIA Status: Acute Plan: Continue BiPAP NIMV and wean as clinically indicated to high-flow O2 (2) Bilateral pulmonary embolism Code(s): I26.99 - OTHER PULMONARY EMBOLISM WITHOUT ACUTE COR PULMONALE Status: Acute Plan: Continue Lovenox 100mg sc BID, O2 support (3) Pneumonia due to COVID-19 virus Code(s): U07.1 - COVID-19; J12.82 - PNEUMONIA DUE TO CORONAVIRUS DISEASE 2019 Status: Acute Plan: Continue Dexamethasone/pulmonary support/Duonebs (4) Type 2 myocardial infarction Code(s): I21.A1 - MYOCARDIAL INFARCTION TYPE 2 Status: Acute (5) Acute renal failure Status: Acute Plan: Resolved - Plan child protective services social worker, respiratory therapy, DVT proph w/SCDs Continue pulmonary support with BiPAP Continue Dexamethasone Continue Duonebs Consider trial of high-flow NC Continue Lovenox 100mg sc BID Start IV NS @ 100ml/h AM lab: BMP, CBC, Mg++, D-dimer, Ferritin
[2020-08-09] MEDS: Sodium Chloride 0.9% 1,000 ML IV SCH (16:39)
--- NOTE | 2020-08-09 19:38 | PRG ---
DATE OF SERVICE: 08/09/2020 SUBJECTIVE: Mr. Abreu is still on BiPAP today. He is off briefly yesterday apparently. I switched him to high-flow today with flow rate of 60 L. He is complaining about the mask being uncomfortable. OBJECTIVE: VITAL SIGNS: Heart rates in the 80s, respiratory rates in the 20s, oximetry is 89 to 94 this afternoon on high-flow. I have relayed to Respiratory Therapy that the goal O2 saturation needs to be 88 to 92. Blood pressure is 142/94. LUNGS: Clear. HEART: Regular rhythm. ABDOMEN: Soft. IMPRESSION: 1. Pulmonary emboli, likely secondary to hypercoagulable state of COVID. 2. Recent COVID infection. He had almost fully recovered from that when his shortness of breath began. He is fully anticoagulated now. 3. He has significant anxiety problem that he admits to and says he takes Ativan 2 mg twice a day at home for that. Hopefully, we can keep him on high-flow and gradually wean his FiO2 down as he improvement of his thromboembolic problems. Job ID: [id number]
[2020-08-09] MEDS: Dexamethasone 4 mg/ml Vial SLOW IVP SCH (20:17)
[2020-08-09] MEDS: Transdermal Patch Removal TOP SCH (20:37)
[2020-08-10] MEDS: Morphine 2 MG/ML VIAL SLOW IVP PRN (00:31)
[2020-08-10] MEDS: HYDROcodone/Acetaminophen 5/325 mg Tablet PO SCH ×4 (02:28→20:12)
[2020-08-10] MEDS: Sodium Chloride 0.9% 1,000 ML IV SCH ×3 (02:28→21:50)
[2020-08-10 04:57] LABS: #Lymphocytes 0.7 thou/uL (1.20-3.40); #Monocytes 0.3 thou/uL (0.11-0.59); #Neutrophils 6.6 thou/uL (1.40-6.50); %Basophils 0.1 % (0.0-1.0); %Eosinophils 0.5 % (0.0-10.0); %Lymphocytes 8.7 % (21.0-51.0); %Monocytes 3.9 % (0.0-10.0); %Neutrophils 86.9 % (42.0-75.0); Mean Corpuscular HGB CONC 32.1 g/dL (32.0-36.0); Mean Corpuscular Hemoglobin 31.2 pg (27.0-31.0); Mean Corpuscular Volume 97.2 fL (78.0-98.0); Mean Platelet Volume 10.6 fL (7.4-10.4); Platelet Count 49 thou/uL (130-400); RBC Distribution Width 13.7 % (11.5-14.5); Red Blood Cell (RBC) Count 4.17 mill/uL (4.70-6.10); White Blood Cell (WBC) Count 7.7 thou/uL (4.8-10.8)
[2020-08-10 05:38] LABS: Anion Gap 20 mmol/L (10-20); BUN (Urea Nitrogen) 33 mg/dL (8.4-25.7); Calc. Creatinine Clearance 140 mL/min (70-130); Calcium 8.8 mg/dL (7.8-10.44); Carbon Dioxide 17 mmol/L (23-31); Chloride 111 mmol/L (98-107); Glucose 107 mg/dL (80-115); Magnesium 2.3 mg/dL (1.6-2.6); Potassium 4.9 mmol/L (3.5-5.1); Sodium 143 mmol/L (136-145)
[2020-08-10] MEDS: Mometasone 100 MCG/Formoterol 5 MCG 120 PUFF INHALER INH SCH ×2 (07:14→18:13)
[2020-08-10] MEDS: ALPRAZolam 0.5 MG TAB PO SCH ×3 (08:56→20:21)
[2020-08-10] MEDS: Cholecalciferol 1,000 UNITS (25 MCG) TAB PO SCH (08:56)
[2020-08-10] MEDS: buPROPion HCl 100 MG TAB PO SCH ×2 (08:56→20:13)
[2020-08-10] MEDS: Polyethylene Glycol 3350 17 GM Packet PO SCH (08:57)
[2020-08-10] MEDS: Pregabalin 75 MG CAP PO SCH ×3 (08:57→20:11)
[2020-08-10] MEDS: Lidocaine 5% Patch TD SCH (08:57)
[2020-08-10] MEDS: Lisinopril 10 MG TAB PO SCH (08:57)
[2020-08-10] MEDS: Enoxaparin Sodium 100 MG/ML SYRINGE SC SCH (09:30)
[2020-08-10] MEDS: Dextroamphetamine/Amphetamine [Adderall] 30 MG PO SCH (12:04)
[2020-08-10] MEDS: Lorazepam 2 MG/ML VIAL SLOW IVP PRN ×2 (12:22→21:42)
--- NOTE | 2020-08-10 13:52 | PDOC.HOSPP ---
- Subjective Encounter Date: 08/10/20 Encounter Time: 13:45 Subjective: f/u for resp failure/bilat PE's on Lovenox and high-flow NC with 60L/min and FIO2 76%. States he has anxiety and received Ativan with some relief. Nursing notes he desaturates rapidly without the high-flow. - Objective Vital Signs & Weight: Vital Signs (12 hours) Temp Pulse Resp BP Pulse Ox 08/10/20 12:00 97.8 F 101 H 24 H 143/84 H 92 L 08/10/20 10:00 72 22 H 143/84 H 96 08/10/20 08:00 119 H 24 H 142/97 H 88 L 08/10/20 07:15 93 L 08/10/20 07:14 65 24 H 93 L 08/10/20 06:30 97.3 F L 68 24 H 125/85 97 08/10/20 04:30 97.7 F 79 20 135/99 H 98 08/10/20 02:30 97.1 F L 96 20 136/91 H 98 Weight Admit Weight 228 lb 6.4 oz Weight 228 lb 6.4 oz Most Recent Monitor Data Heart Rate from ECG 66 NIBP 102/75 NIBP BP-Mean 77 Respiration from ECG 29 SpO2 93 I&O: 08/09/20 08/10/20 08/11/20 06:59 06:59 06:59 Intake Total 740 620 Balance 740 620 Result Diagrams: 08/10/20 04:32 08/10/20 04:32 Additional Labs: Microbiology 08/06/20 22:07 Venous blood - Right Hand Blood Culture - Preliminary NO GROWTH AT 48 HOURS 08/06/20 22:03 Venous blood - Left Arm Blood Culture - Preliminary Specimen has been received and culture in progress. No Growth to date. 08/06/20 22:03 Venous blood - Left Arm Blood Culture - Preliminary Gram Positive Cocci Laboratory Tests 08/06/20 08/06/20 08/06/20 22:07 22:07 22:07 WBC 14.5 H Hgb 12.0 L Plt Count 95 L ESR Westergren 26 H D-Dimer Lactic Acid Ferritin Troponin I 1.210 H* 08/07/20 08/07/20 08/07/20 00:54 00:54 04:04 WBC Hgb Plt Count ESR Westergren D-Dimer Lactic Acid 1.2 Ferritin Troponin I 1.140 H* 0.811 H* 08/08/20 08/08/20 04:26 04:26 WBC Hgb Plt Count ESR Westergren D-Dimer 5.56 H Lactic Acid Ferritin 336.11 H Troponin I EKG Reviewed by me: Yes (Tele - Sinus tachycardia low-100's) Hospitalist ROS - Medication Medications: Active Medications Generic Name Dose Route Start Last Admin Trade Name Freq PRN Reason Stop Dose Admin Hydrocodone Bitart/Acetaminophen 1 tab 08/08/20 08:00 08/10/20 08:55 Hydrocodone/Acetaminophen 5/325 Mg Tablet PO 1 tab 0200,0800,1400,2000 SAVANNA Administration Alprazolam 0.5 mg 08/07/20 21:00 08/10/20 08:56 Alprazolam 0.5 Mg Tab PO 0.5 mg TID SAVANNA Administration Bupropion HCl 200 mg 08/07/20 09:00 08/10/20 08:56 Bupropion Hcl 100 Mg Tab PO 200 mg BID SAVANNA Administration Cholecalciferol 2,000 units 08/07/20 09:00 08/10/20 08:56 Cholecalciferol 1,000 Units (25 Mcg) Tab PO 2,000 units DAILY SAVANNA Administration Dexamethasone 6 mg 08/07/20 22:00 08/09/20 20:17 Dexamethasone 4 Mg/Ml Vial SLOW IVP 6 mg Q24HR SAVANNA Administration Sodium Chloride 1,000 mls @ 100 mls/hr 08/09/20 15:15 08/10/20 12:22 Normal Saline 0.9% IV 1,000 mls .Q10H SAVANNA Administration Lidocaine 1 patch 08/10/20 09:00 08/10/20 08:57 Lidocaine 5% Patch TD 1 patch 0900 SAVANNA Administration Lisinopril 10 mg 08/07/20 09:00 08/10/20 08:57 Lisinopril 10 Mg Tab PO 10 mg QAM SAVANNA Administration Lorazepam 1 mg 08/07/20 04:07 08/10/20 12:22 Lorazepam 2 Mg/Ml Vial SLOW IVP 1 mg Q4H PRN Administration Anxiety/Agitation Miscellaneous Medication 1 each 08/09/20 21:00 08/09/20 20:37 Lidocaine Patch Removal 1 Each TOP Not Given 2100 SAVANNA Mometasone Furoate/Formoterol Fumar 1 puff 08/07/20 06:30 08/10/20 07:14 Mometasone 100 Mcg/Formoterol 5 Mcg 120 Puff Inhaler INH 1 puff BID-RT SAAVNNA Administration Morphine Sulfate 2 mg 08/07/20 04:05 08/10/20 00:31 Morphine 2 Mg/Ml Vial SLOW IVP 2 mg Q4H PRN Administration severe pain 4-10 Pantoprazole Sodium 40 mg 08/07/20 09:00 08/10/20 08:57 Pantoprazole 40 Mg Tab PO 40 mg DAILY SAVANNA Administration Polyethylene Glycol 17 gm 08/07/20 09:00 08/10/20 08:57 Polyethylene Glycol 3350 17 Gm Packet PO 17 gm DAILY SAVANNA Administration Pregabalin 75 mg 08/07/20 09:00 08/10/20 08:57 Pregabalin 75 Mg Cap PO 75 mg TID SAVANNA Administration Hospitalist Exam Vitals: Vital Signs (12 hours) Temp Pulse Resp BP Pulse Ox 08/10/20 12:00 97.8 F 101 H 24 H 143/84 H 92 L 08/10/20 10:00 72 22 H 143/84 H 96 08/10/20 08:00 119 H 24 H 142/97 H 88 L 08/10/20 07:15 93 L 08/10/20 07:14 65 24 H 93 L 08/10/20 06:30 97.3 F L 68 24 H 125/85 97 08/10/20 04:30 97.7 F 79 20 135/99 H 98 08/10/20 02:30 97.1 F L 96 20 136/91 H 98 Weight Admit Weight 228 lb 6.4 oz Weight 228 lb 6.4 oz Most Recent Monitor Data Heart Rate from ECG 66 NIBP 102/75 NIBP BP-Mean 77 Respiration from ECG 29 SpO2 93 General Appearance: NAD, awake alert Eye: PERRL, anicteric sclera ENT: normocephalic atraumatic, no oropharyngeal lesions Neck: supple, symmetric, no JVD, no thyromegaly, no lymphadenopathy Heart: RRR, no gallops, no rubs, normal peripheral pulses Heart - other findings: S1, S2 tachycardic Respiratory: tachypneic Respiratory - other findings: coarse sounds bilat Gastrointestinal: soft, non-tender, non-distended, normal bowel sounds, no palpable masses Extremities: no cyanosis, no clubbing, no edema Skin: normal turgor, no lesions Neurological: cranial nerve grossly intact, no new deficit Musculoskeletal: normal tone, generalized weakness Psychiatric: A&O x 3 Psychiatric - other findings: anxious Hosp A/P (1) Acute respiratory failure with hypoxemia Code(s): J96.01 - ACUTE RESPIRATORY FAILURE WITH HYPOXIA Status: Acute Plan: Continue high-flow NC and titrate to clinical response (2) Bilateral pulmonary embolism Code(s): I26.99 - OTHER PULMONARY EMBOLISM WITHOUT ACUTE COR PULMONALE Status: Acute Plan: Continue Lovenox 100mg daily given progressive thrombocytopenia, continue O2 supplementation (3) Pneumonia due to COVID-19 virus Code(s): U07.1 - COVID-19; J12.82 - PNEUMONIA DUE TO CORONAVIRUS DISEASE 2018 Status: Acute Plan: Remote exposure, continue supportive care, continue Dexamethasone (4) Type 2 myocardial infarction Code(s): I21.A1 - MYOCARDIAL INFARCTION TYPE 2 Status: Acute Plan: Conservative mgmt (5) Acute renal failure Status: Acute Plan: Resolving - Plan social and human services assistant, respiratory therapy, DVT proph w/SCDs Continue pulmonary support with high-flow NC Continue Dexamethasone Continue Duonebs Ativan 1mg IV q4h PRN Continue Lovenox 100mg sc daily, watch platelet count closely Start IV NS @ 100ml/h AM lab: CBC, Ferritin, D-dimer
--- NOTE | 2020-08-10 17:56 | PRG ---
DATE OF SERVICE: 08/10/2020 OBJECTIVE: VITAL SIGNS: The patient remains on high-flow nasal cannula at about 78%. His O2 saturations were running in the 90s and blood pressure 135/84. GENERAL: He does not appear to be in any acute distress. HEENT: Unremarkable. NECK: No adenopathy or JVD. LUNGS: Diminished breath sounds bilaterally. CARDIAC: S1, S2. Regular. ABDOMEN: Soft. EXTREMITIES: No edema. ASSESSMENT: 1. Pulmonary embolism. 2. Post-COVID pneumonia. PLAN: Continue supportive care with high-flow oxygen. Continue anticoagulation. Job ID: [id number]
[2020-08-10] MEDS: Transdermal Patch Removal TOP SCH (20:13)
[2020-08-10] MEDS: Dexamethasone 4 mg/ml Vial SLOW IVP SCH (20:13)
[2020-08-11] MEDS: HYDROcodone/Acetaminophen 5/325 mg Tablet PO SCH ×4 (01:38→20:39)
[2020-08-11 06:43] LABS: #Eosinphils 0.1 thou/uL (0.0-0.7); #Lymphocytes 0.6 thou/uL (1.20-3.40); #Monocytes 0.4 thou/uL (0.11-0.59); #Neutrophils 7.7 thou/uL (1.40-6.50); %Basophils 0.1 % (0.0-1.0); %Eosinophils 0.6 % (0.0-10.0); %Lymphocytes 7.1 % (21.0-51.0); %Monocytes 4.1 % (0.0-10.0); %Neutrophils 88.2 % (42.0-75.0); Hemoglobin 11.3 g/dL (14.0-18.0); Mean Corpuscular HGB CONC 31.7 g/dL (32.0-36.0); Mean Corpuscular Hemoglobin 30.5 pg (27.0-31.0); Mean Corpuscular Volume 96.2 fL (78.0-98.0); Mean Platelet Volume 10.6 fL (7.4-10.4); Platelet Count 64 thou/uL (130-400); Platelet Morphology Comment Appears Decreased; RBC Distribution Width 13.5 % (11.5-14.5); Red Blood Cell (RBC) Count 3.71 mill/uL (4.70-6.10); White Blood Cell (WBC) Count 8.7 thou/uL (4.8-10.8)
[2020-08-11] MEDS: Mometasone 100 MCG/Formoterol 5 MCG 120 PUFF INHALER INH SCH ×2 (06:43→18:45)
[2020-08-11] MEDS: Pregabalin 75 MG CAP PO SCH ×3 (08:03→20:38)
[2020-08-11] MEDS: ALPRAZolam 0.5 MG TAB PO SCH (08:04)
[2020-08-11] MEDS: Lisinopril 10 MG TAB PO SCH (08:04)
[2020-08-11] MEDS: Polyethylene Glycol 3350 17 GM Packet PO SCH (08:05)
[2020-08-11] MEDS: Cholecalciferol 1,000 UNITS (25 MCG) TAB PO SCH (08:05)
[2020-08-11] MEDS: Lidocaine 5% Patch TD SCH (08:06)
[2020-08-11] MEDS: Lorazepam 2 MG/ML VIAL SLOW IVP PRN ×2 (08:24→15:00)
[2020-08-11] MEDS: buPROPion HCl 100 MG TAB PO SCH ×2 (08:24→20:38)
[2020-08-11] MEDS ORDERED: Enoxaparin Sodium 100 MG/ML SYRINGE SC SCH (09:00)
--- NOTE | 2020-08-11 10:23 | PDOC.HOSPP ---
- Subjective Encounter Date: 08/11/20 Encounter Time: 10:21 Subjective: Mr. Abreu was seen today in follow-up of Pulmonary Embolus. He notes some improvement in his sense of dyspnea. He says he is very anxious however, and Xanax is not helping. He also notes that he is hurting all over. - Objective Vital Signs & Weight: Vital Signs (12 hours) Temp Pulse Resp BP Pulse Ox 08/11/20 08:00 98.0 F 84 18 123/78 93 L 08/11/20 06:43 70 20 92 L 08/11/20 06:00 98.0 F 70 20 125/75 92 L 08/11/20 04:00 96.6 F L 76 22 H 129/77 99 08/11/20 02:31 91 L 08/11/20 00:10 98.2 F 97 20 127/84 96 08/11/20 00:00 97.5 F L 98 20 133/85 95 08/10/20 22:28 96 Weight Admit Weight 228 lb 6.4 oz Weight 228 lb 6.4 oz Most Recent Monitor Data Heart Rate from ECG 66 NIBP 102/75 NIBP BP-Mean 77 Respiration from ECG 29 SpO2 93 I&O: 08/10/20 08/11/20 08/12/20 06:59 06:59 06:59 Intake Total 740 2120 120 Balance 740 2120 120 Result Diagrams: 08/11/20 04:48 08/10/20 04:32 Hospitalist ROS - Medication Medications: Active Medications Generic Name Dose Route Start Last Admin Trade Name Freq PRN Reason Stop Dose Admin Hydrocodone Bitart/Acetaminophen 1 tab 08/08/20 08:00 08/11/20 08:04 Hydrocodone/Acetaminophen 5/325 Mg Tablet PO 1 tab 0200,0800,1400,2000 SAVANNA Administration Bupropion HCl 200 mg 08/07/20 09:00 08/11/20 08:24 Bupropion Hcl 100 Mg Tab PO 200 mg BID SAVANNA Administration Cholecalciferol 2,000 units 08/07/20 09:00 08/11/20 08:05 Cholecalciferol 1,000 Units (25 Mcg) Tab PO 2,000 units DAILY SAVANNA Administration Dexamethasone 6 mg 08/07/20 22:00 08/10/20 20:13 Dexamethasone 4 Mg/Ml Vial SLOW IVP 6 mg Q24HR SAVANNA Administration Sodium Chloride 1,000 mls @ 100 mls/hr 08/09/20 15:15 08/10/20 21:50 Normal Saline 0.9% IV 1,000 mls .Q10H SAVANNA Administration Lidocaine 1 patch 08/10/20 09:00 08/11/20 08:06 Lidocaine 5% Patch TD 1 patch 0900 SAVANNA Administration Lisinopril 10 mg 08/07/20 09:00 08/11/20 08:04 Lisinopril 10 Mg Tab PO 10 mg QAM SAVANNA Administration Lorazepam 1 mg 08/07/20 04:07 08/11/20 08:24 Lorazepam 2 Mg/Ml Vial SLOW IVP 1 mg Q4H PRN Administration Anxiety/Agitation Miscellaneous Medication 1 each 08/09/20 21:00 08/10/20 20:13 Lidocaine Patch Removal 1 Each TOP 1 each 2100 SAVANNA Administration Mometasone Furoate/Formoterol Fumar 1 puff 08/07/20 06:30 08/11/20 06:43 Mometasone 100 Mcg/Formoterol 5 Mcg 120 Puff Inhaler INH 1 puff BID-RT SAVANNA Administration Morphine Sulfate 2 mg 08/07/20 04:05 08/10/20 00:31 Morphine 2 Mg/Ml Vial SLOW IVP 2 mg Q4H PRN Administration severe pain 4-10 Pantoprazole Sodium 40 mg 08/07/20 09:00 08/11/20 08:03 Pantoprazole 40 Mg Tab PO 40 mg DAILY SAVANNA Administration Polyethylene Glycol 17 gm 08/07/20 09:00 08/11/20 08:05 Polyethylene Glycol 3350 17 Gm Packet PO 17 gm DAILY SAVANNA Administration Pregabalin 75 mg 08/07/20 09:00 08/11/20 08:03 Pregabalin 75 Mg Cap PO 75 mg TID SAVANNA Administration Hospitalist Exam Vitals: Vital Signs (12 hours) Temp Pulse Resp BP Pulse Ox 08/11/20 08:00 98.0 F 84 18 123/78 93 L 08/11/20 06:43 70 20 92 L 08/11/20 06:00 98.0 F 70 20 125/75 92 L 08/11/20 04:00 96.6 F L 76 22 H 129/77 99 08/11/20 02:31 91 L 08/11/20 00:10 98.2 F 97 20 127/84 96 08/11/20 00:00 97.5 F L 98 20 133/85 95 08/10/20 22:28 96 Weight Admit Weight 228 lb 6.4 oz Weight 228 lb 6.4 oz Most Recent Monitor Data Heart Rate from ECG 66 NIBP 102/75 NIBP BP-Mean 77 Respiration from ECG 29 SpO2 93 General Appearance: NAD, awake alert Eye: PERRL, anicteric sclera Heart: RRR, no murmur, no gallops, no rubs, normal peripheral pulses Respiratory: no wheezes, no ronchi, rales (rales at both bases) Gastrointestinal: soft, non-tender, non-distended, normal bowel sounds, no palpable masses, no hepatomegaly, no splenomegaly Extremities: no cyanosis, 1+ LE edema Hosp A/P (1) Bilateral pulmonary embolism Code(s): I26.99 - OTHER PULMONARY EMBOLISM WITHOUT ACUTE COR PULMONALE Status: Acute (2) Acute respiratory failure with hypoxemia Code(s): J96.01 - ACUTE RESPIRATORY FAILURE WITH HYPOXIA Status: Acute (3) ADHD Status: Chronic (4) Hypertension Code(s): I10 - ESSENTIAL (PRIMARY) HYPERTENSION Status: Chronic - Plan * Acute respiratory failure due to PE- continue Lovenox, but at a lower dose, due to thrombocytopenia * Blood culture results noted- and suspect this is due to contamination * HTN- blood pressure is stable * ADHD- stable * Generalized Anxiety- continue low dose Valium as needed
[2020-08-11] MEDS: Sodium Chloride 0.9% 1,000 ML IV SCH ×2 (11:08→18:46)
--- NOTE | 2020-08-11 16:23 | PRG ---
DATE OF SERVICE: 08/11/2020 SUBJECTIVE: He is much more awake and conversant today compared to yesterday. OBJECTIVE: VITAL SIGNS: His temperature 97.9, pulse 71, O2 saturation 91% on high-flow oxygen 80%, blood pressure 114/71. HEENT: He has some hemoptysis. NECK: No JVD. LUNGS: Fairly clear anteriorly. CARDIAC: S1 and S2, regular. ABDOMEN: Soft. EXTREMITIES: No edema. LABORATORY DATA: White blood cell count 8.7, hematocrit 35.7, and platelet count 64. Sodium 143, potassium 4.9, chloride 111, CO2 of 17, BUN 33, creatinine 0.7, glucose 107. ASSESSMENT: 1. Pulmonary embolism. 2. Hemoptysis. 3. Developing thrombocytopenia. PLAN: 1. We will need to switch him over to Arixtra. 2. Continue oxygen. Job ID: [id number]
[2020-08-11] MEDS: Transdermal Patch Removal TOP SCH (20:39)
[2020-08-11] MEDS: Dexamethasone 4 mg/ml Vial SLOW IVP SCH (20:39)
[2020-08-12] MEDS: HYDROcodone/Acetaminophen 5/325 mg Tablet PO SCH ×4 (01:32→20:12)
[2020-08-12] MEDS: Fondaparinux Sodium 2.5 MG/0.5 ML SYRINGE SC SCH (05:37)
[2020-08-12] MEDS: Sodium Chloride 0.9% 1,000 ML IV SCH (05:38)
[2020-08-12] MEDS: Mometasone 100 MCG/Formoterol 5 MCG 120 PUFF INHALER INH SCH ×2 (05:39→18:18)
[2020-08-12 06:13] LABS: #Lymphocytes 0.7 thou/uL (1.20-3.40); #Monocytes 0.4 thou/uL (0.11-0.59); #Neutrophils 7.2 thou/uL (1.40-6.50); %Basophils 0.1 % (0.0-1.0); %Eosinophils 0.2 % (0.0-10.0); %Lymphocytes 8.2 % (21.0-51.0); %Monocytes 4.2 % (0.0-10.0); %Neutrophils 87.3 % (42.0-75.0); Hemoglobin 12.4 g/dL (14.0-18.0); Mean Corpuscular HGB CONC 32.7 g/dL (32.0-36.0); Mean Corpuscular Hemoglobin 30.9 pg (27.0-31.0); Mean Corpuscular Volume 94.5 fL (78.0-98.0); Platelet Count 68 thou/uL (130-400); RBC Distribution Width 13.4 % (11.5-14.5); Red Blood Cell (RBC) Count 4.03 mill/uL (4.70-6.10); White Blood Cell (WBC) Count 8.3 thou/uL (4.8-10.8)
[2020-08-12 06:16] LABS: Anion Gap 11 mmol/L (10-20); BUN (Urea Nitrogen) 17 mg/dL (8.4-25.7); Calc. Creatinine Clearance 144 mL/min (70-130); Calcium 8.4 mg/dL (7.8-10.44); Carbon Dioxide 23 mmol/L (23-31); Chloride 106 mmol/L (98-107); Glucose 109 mg/dL (80-115); Potassium 4.3 mmol/L (3.5-5.1); Sodium 136 mmol/L (136-145)
[2020-08-12] MEDS: Pregabalin 75 MG CAP PO SCH ×3 (07:57→20:13)
[2020-08-12] MEDS: Lisinopril 10 MG TAB PO SCH (07:57)
[2020-08-12] MEDS: Cholecalciferol 1,000 UNITS (25 MCG) TAB PO SCH (07:57)
[2020-08-12] MEDS: Lidocaine 5% Patch TD SCH (07:57)
[2020-08-12] MEDS: buPROPion HCl 100 MG TAB PO SCH ×2 (08:03→20:13)
[2020-08-12] MEDS: Lorazepam 2 MG/ML VIAL SLOW IVP PRN ×3 (08:06→20:14)
[2020-08-12] MEDS: Polyethylene Glycol 3350 17 GM Packet PO SCH (09:58)
--- NOTE | 2020-08-12 10:12 | PDOC.HOSPP ---
- Subjective Encounter Date: 08/12/20 Encounter Time: 10:10 Subjective: Mr. Abreu was seen today in follow-up of Bilateral PE following COVID infection. He feels a little better. [facility] He is still on high flow oxygen. - Objective Vital Signs & Weight: Vital Signs (12 hours) Temp Pulse Resp BP Pulse Ox 08/12/20 08:00 98.0 F 95 17 148/72 H 95 08/12/20 06:00 98.0 F 95 20 141/84 H 96 08/12/20 05:39 73 90 L 08/12/20 04:00 98.1 F 101 H 24 H 126/73 97 08/12/20 02:43 97 08/12/20 00:00 97.6 F 75 18 131/83 98 08/11/20 22:39 98 Weight Admit Weight 228 lb 6.4 oz Weight 228 lb 6.4 oz Most Recent Monitor Data Heart Rate from ECG 66 NIBP 102/75 NIBP BP-Mean 77 Respiration from ECG 29 SpO2 93 I&O: 08/11/20 08/12/20 08/13/20 06:59 06:59 06:59 Intake Total 2120 180 Output Total 925 Balance 2120 -745 Result Diagrams: 08/12/20 05:22 08/12/20 05:22 Hospitalist ROS - Medication Medications: Active Medications Generic Name Dose Route Start Last Admin Trade Name Freq PRN Reason Stop Dose Admin Hydrocodone Bitart/Acetaminophen 1 tab 08/08/20 08:00 08/12/20 07:57 Hydrocodone/Acetaminophen 5/325 Mg Tablet PO 1 tab 0200,0800,1400,2000 SAVANNA Administration Bupropion HCl 200 mg 08/07/20 09:00 08/12/20 08:03 Bupropion Hcl 100 Mg Tab PO 200 mg BID SAVANNA Administration Cholecalciferol 2,000 units 08/07/20 09:00 08/12/20 07:57 Cholecalciferol 1,000 Units (25 Mcg) Tab PO 2,000 units DAILY SAVANNA Administration Dexamethasone 6 mg 08/07/20 22:00 08/11/20 20:39 Dexamethasone 4 Mg/Ml Vial SLOW IVP 6 mg Q24HR SAVANNA Administration Fondaparinux 7.5 mg 08/12/20 06:00 08/12/20 05:37 Fondaparinux Sodium 2.5 Mg/0.5 Ml Syringe SC 7.5 mg DAILY@0600 SAVANNA Administration Sodium Chloride 1,000 mls @ 100 mls/hr 08/09/20 15:15 08/12/20 05:38 Normal Saline 0.9% IV 1,000 mls .Q10H SAVANNA Administration Lidocaine 1 patch 08/10/20 09:00 08/12/20 07:57 Lidocaine 5% Patch TD 1 patch 0900 SAVANNA Administration Lisinopril 10 mg 08/07/20 09:00 08/12/20 07:57 Lisinopril 10 Mg Tab PO 10 mg QAM SAVANNA Administration Lorazepam 1 mg 08/07/20 04:07 08/12/20 08:06 Lorazepam 2 Mg/Ml Vial SLOW IVP 1 mg Q4H PRN Administration Anxiety/Agitation Miscellaneous Medication 1 each 08/09/20 21:00 08/11/20 20:39 Lidocaine Patch Removal 1 Each TOP 1 each 2100 SAVANNA Administration Mometasone Furoate/Formoterol Fumar 1 puff 08/07/20 06:30 08/12/20 05:39 Mometasone 100 Mcg/Formoterol 5 Mcg 120 Puff Inhaler INH 1 puff BID-RT SAVANNA Administration Morphine Sulfate 2 mg 08/07/20 04:05 08/10/20 00:31 Morphine 2 Mg/Ml Vial SLOW IVP 2 mg Q4H PRN Administration severe pain 4-10 Pantoprazole Sodium 40 mg 08/07/20 09:00 08/12/20 07:57 Pantoprazole 40 Mg Tab PO 40 mg DAILY SAVANNA Administration Polyethylene Glycol 17 gm 08/07/20 09:00 08/12/20 09:58 Polyethylene Glycol 3350 17 Gm Packet PO Not Given DAILY SAVANNA Pregabalin 75 mg 08/07/20 09:00 08/12/20 07:57 Pregabalin 75 Mg Cap PO 75 mg TID SAVANNA Administration Hospitalist Exam Vitals: Vital Signs (12 hours) Temp Pulse Resp BP Pulse Ox 08/12/20 08:00 98.0 F 95 17 148/72 H 95 08/12/20 06:00 98.0 F 95 20 141/84 H 96 08/12/20 05:39 73 90 L 08/12/20 04:00 98.1 F 101 H 24 H 126/73 97 08/12/20 02:43 97 08/12/20 00:00 97.6 F 75 18 131/83 98 08/11/20 22:39 98 Weight Admit Weight 228 lb 6.4 oz Weight 228 lb 6.4 oz Most Recent Monitor Data Heart Rate from ECG 66 NIBP 102/75 NIBP BP-Mean 77 Respiration from ECG 29 SpO2 93 Eye: PERRL, anicteric sclera Heart: RRR, no murmur, no gallops, no rubs, normal peripheral pulses Respiratory: rales (+ rales in both upper and lower lung flores) Gastrointestinal: soft, non-tender, non-distended, normal bowel sounds, no pal pable masses, no hepatomegaly Extremities: no cyanosis, 1+ LE edema (palpable d.p. and p.t. pulses bilaterally, no lesions) Hosp A/P (1) Bilateral pulmonary embolism Code(s): I26.99 - OTHER PULMONARY EMBOLISM WITHOUT ACUTE COR PULMONALE Status: Acute (2) Acute respiratory failure with hypoxemia Code(s): J96.01 - ACUTE RESPIRATORY FAILURE WITH HYPOXIA Status: Acute (3) ADHD Status: Chronic (4) Hypertension Code(s): I10 - ESSENTIAL (PRIMARY) HYPERTENSION Status: Chronic - Plan * Acute respiratory failure due to PE as well as low pulmonary reserve due to Chronic lung changes due to COVID- Lovenox was discontinued, and he was placed on Arixtra, due to thrombocytopenia * Continue to wean oxygen as tolerated * HTN- blood pressure is stable * ADHD- stable * Generalized Anxiety- continue low dose Valium as needed
--- NOTE | 2020-08-12 15:48 | PRG ---
DATE OF SERVICE: 08/12/2020 SUBJECTIVE: The patient is sleeping, looks very comfortable. He is currently on high-flow oxygen 70%. OBJECTIVE: VITAL SIGNS: O2 saturation running about 95%, temperature 97.2, blood pressure 146/86. HEENT: Unremarkable. LUNGS: Fairly clear. CARDIAC: S1 and S2. Regular. ABDOMEN: Soft. LABORATORY DATA: White blood cell count 8.3, hematocrit 38.1, and platelet count 68. Sodium 136, potassium 4.3, chloride 106, CO2 of 23, BUN 17, creatinine 0.7, glucose 109. ASSESSMENT: 1. Pulmonary embolism. 2. Recent COVID infection. PLAN: He has been switched over to Arixtra because of developing thrombocytopenia. He appears to be doing well. Wean oxygen as tolerated. Keep an eye on platelet count. Job ID: [id number]
[2020-08-12] MEDS: Transdermal Patch Removal TOP SCH (21:08)
[2020-08-13] MEDS: Morphine 2 MG/ML VIAL SLOW IVP PRN ×4 (00:18→23:15)
[2020-08-13] MEDS: Dexamethasone 4 mg/ml Vial SLOW IVP SCH ×2 (00:19→22:01)
[2020-08-13] MEDS: HYDROcodone/Acetaminophen 5/325 mg Tablet PO SCH ×4 (02:23→21:34)
[2020-08-13] MEDS: Fondaparinux Sodium 2.5 MG/0.5 ML SYRINGE SC SCH (07:29)
[2020-08-13] MEDS: Mometasone 100 MCG/Formoterol 5 MCG 120 PUFF INHALER INH SCH ×2 (07:32→19:47)
[2020-08-13] MEDS: FONDAPARINUX SODIUM SC SCH (07:32)
[2020-08-13] MEDS: Lorazepam 2 MG/ML VIAL SLOW IVP PRN (08:33)
[2020-08-13] MEDS: Lidocaine 5% Patch TD SCH (08:35)
[2020-08-13] MEDS: Polyethylene Glycol 3350 17 GM Packet PO SCH (08:38)
[2020-08-13] MEDS: Cholecalciferol 1,000 UNITS (25 MCG) TAB PO SCH (08:40)
[2020-08-13] MEDS: buPROPion HCl 100 MG TAB PO SCH ×2 (08:40→21:35)
[2020-08-13] MEDS: Lisinopril 10 MG TAB PO SCH (08:40)
[2020-08-13] MEDS: Pregabalin 75 MG CAP PO SCH ×3 (08:41→21:35)
[2020-08-13] MEDS: Diazepam 10 MG/2 ML SYRINGE IVP PRN ×2 (12:43→22:02)
--- NOTE | 2020-08-13 13:57 | PDOC.HOSPP ---
- Subjective Encounter Date: 08/13/20 Encounter Time: 13:56 non-verbal Subjective: Mr. Abreu was seen today in follow-up of pulmonary Embolus following COVID infection. He says he felels a little better, however he appears very fatigued. - Objective Vital Signs & Weight: Vital Signs (12 hours) Temp Pulse Resp BP Pulse Ox 08/13/20 11:20 98.3 F 32 H 101/81 08/13/20 10:18 101 H 20 101/81 98 08/13/20 07:49 97.8 F 95 22 H 109/72 90 L 08/13/20 07:40 95 08/13/20 07:18 96 08/13/20 06:14 96 24 H 136/77 91 L 08/13/20 04:31 104 H 22 H 115/79 87 L 08/13/20 02:15 88 L 08/13/20 02:12 111 H 20 129/72 92 L Weight Admit Weight 228 lb 6.4 oz Weight 228 lb 6.4 oz Most Recent Monitor Data Heart Rate from ECG 66 NIBP 102/75 NIBP BP-Mean 77 Respiration from ECG 29 SpO2 93 I&O: 08/12/20 08/13/20 08/14/20 06:59 06:59 06:59 Intake Total 180 1000 300 Output Total 925 1200 0 Balance -745 -200 300 Result Diagrams: 08/12/20 05:22 08/12/20 05:22 Hospitalist ROS - Medication Medications: Active Medications Generic Name Dose Route Start Last Admin Trade Name Freq PRN Reason Stop Dose Admin Hydrocodone Bitart/Acetaminophen 1 tab 08/08/20 08:00 08/13/20 08:39 Hydrocodone/Acetaminophen 5/325 Mg Tablet PO 1 tab 0200,0800,1400,2000 SAVANNA Administration Bupropion HCl 200 mg 08/07/20 09:00 08/13/20 08:40 Bupropion Hcl 100 Mg Tab PO 200 mg BID SAVANNA Administration Cholecalciferol 2,000 units 08/07/20 09:00 08/13/20 08:40 Cholecalciferol 1,000 Units (25 Mcg) Tab PO 2,000 units DAILY SAVANNA Administration Dexamethasone 6 mg 08/07/20 22:00 08/13/20 00:19 Dexamethasone 4 Mg/Ml Vial SLOW IVP 6 mg Q24HR SAVANNA Administration Diazepam 2 mg 08/11/20 10:20 08/13/20 12:43 Diazepam 10 Mg/2 Ml Syringe IVP 2 mg Q6HR PRN Administration Anxiety/Restlessness/Sleep Fondaparinux 7.5 mg/ Syringe 0.6 mls @ 0 mls/hr 08/13/20 06:00 08/13/20 07:32 SC 0.6 mls DAILY@0600 SAVANNA Administration Lidocaine 1 patch 08/10/20 09:00 08/13/20 08:35 Lidocaine 5% Patch TD 1 patch 0900 SAVANNA Administration Lisinopril 10 mg 08/07/20 09:00 08/13/20 08:40 Lisinopril 10 Mg Tab PO 10 mg QAM SAVANNA Administration Lorazepam 1 mg 08/07/20 04:07 08/13/20 08:33 Lorazepam 2 Mg/Ml Vial SLOW IVP 1 mg Q4H PRN Administration Anxiety/Agitation Miscellaneous Medication 1 each 08/09/20 21:00 08/12/20 21:08 Lidocaine Patch Removal 1 Each TOP 1 each 2100 SAVANNA Administration Mometasone Furoate/Formoterol Fumar 1 puff 08/07/20 06:30 08/13/20 07:32 Mometasone 100 Mcg/Formoterol 5 Mcg 120 Puff Inhaler INH 1 puff BID-RT SAVANNA Administration Morphine Sulfate 2 mg 08/07/20 04:05 08/13/20 09:41 Morphine 2 Mg/Ml Vial SLOW IVP 2 mg Q4H PRN Administration severe pain 4-10 Pantoprazole Sodium 40 mg 08/07/20 09:00 08/13/20 08:41 Pantoprazole 40 Mg Tab PO 40 mg DAILY SAVANNA Administration Polyethylene Glycol 17 gm 08/07/20 09:00 08/13/20 08:38 Polyethylene Glycol 3350 17 Gm Packet PO Not Given DAILY SAVANNA Pregabalin 75 mg 08/07/20 09:00 08/13/20 08:41 Pregabalin 75 Mg Cap PO 75 mg TID SAVANNA Administration Hospitalist Exam Vitals: Vital Signs (12 hours) Temp Pulse Resp BP Pulse Ox 08/13/20 11:20 98.3 F 32 H 101/81 08/13/20 10:18 101 H 20 101/81 98 08/13/20 07:49 97.8 F 95 22 H 109/72 90 L 08/13/20 07:40 95 08/13/20 07:18 96 08/13/20 06:14 96 24 H 136/77 91 L 08/13/20 04:31 104 H 22 H 115/79 87 L 08/13/20 02:15 88 L 08/13/20 02:12 111 H 20 129/72 92 L Weight Admit Weight 228 lb 6.4 oz Weight 228 lb 6.4 oz Most Recent Monitor Data Heart Rate from ECG 66 NIBP 102/75 NIBP BP-Mean 77 Respiration from ECG 29 SpO2 93 Eye: PERRL, anicteric sclera Heart: RRR, no murmur, no gallops, no rubs, normal peripheral pulses Respiratory: no wheezes, no ronchi, rales (at both bases) Gastrointestinal: soft, non-tender, non-distended, normal bowel sounds, no palpable masses, no hepatomegaly Extremities: no cyanosis (palpable d.p. pulses bilaterally), 1+ LE edema Hosp A/P (1) Bilateral pulmonary embolism Code(s): I26.99 - OTHER PULMONARY EMBOLISM WITHOUT ACUTE COR PULMONALE Status: Acute (2) Acute respiratory failure with hypoxemia Code(s): J96.01 - ACUTE RESPIRATORY FAILURE WITH HYPOXIA Status: Acute (3) ADHD Status: Chronic (4) Hypertension Code(s): I10 - ESSENTIAL (PRIMARY) HYPERTENSION Status: Chronic - Plan * Acute respiratory failure due to PE as well as low pulmonary reserve due to Chronic lung changes due to COVID- Continue Atrixtra * Continue to wean oxygen as tolerated * HTN- blood pressure is stable * ADHD- stable * Generalized Anxiety- continue low dose Valium as needed * Need to mobilize- will consult PT
--- NOTE | 2020-08-13 16:50 | PRG ---
DATE OF SERVICE: 08/13/2020 SUBJECTIVE: Mr. Abreu says he is feeling better. He is still requiring variable amounts of high-flow oxygen. This is unusual in my opinion for thromboembolic disease. OBJECTIVE: LUNGS: Otherwise unchanged HEART: Otherwise unchanged ABDOMEN: Otherwise unchanged. VITAL SIGNS: Remain stable. He is afebrile. Some of this I am sure is hypoventilation related and atelectasis. He also has some persistent inflammatory abnormalities related to his past COVID infection, but I would expect better gas exchange by now. We will check a chest x-ray in the morning. Job ID: [id number]
[2020-08-13] MEDS: Transdermal Patch Removal TOP SCH (21:35)
[2020-08-14] MEDS: HYDROcodone/Acetaminophen 5/325 mg Tablet PO SCH ×4 (02:00→21:32)
[2020-08-14] MEDS: Polyethylene Glycol 3350 17 GM Packet PO SCH (07:49)
[2020-08-14] MEDS: FONDAPARINUX SODIUM SC SCH (08:02)
[2020-08-14] MEDS: Lidocaine 5% Patch TD SCH (08:08)
--- NOTE | 2020-08-14 08:09 | PRG ---
DATE OF SERVICE: 08/14/2020 SUBJECTIVE: Mr. Abreu remains on high-flow. I have reminded the nurses that we need to minimize FiO2 with a goal sat of 88 to 92. It seems like FiO2 has been turned up. OBJECTIVE: VITAL SIGNS: He is afebrile, heart rates in the 70s, respiratory rate is 20. GENERAL: He is resting comfortably. LUNGS: He has clear lung flores. HEART: Regular rhythm. ABDOMEN: Soft. IMPRESSION: Persistent hypoxemia associated with thromboembolic disease on top of COVID, interstitial inflammatory changes. I ordered another x-ray today. We will continue to follow. Job ID: [id number]
[2020-08-14] MEDS: Cholecalciferol 1,000 UNITS (25 MCG) TAB PO SCH (08:12)
[2020-08-14] MEDS: Lisinopril 10 MG TAB PO SCH (08:12)
[2020-08-14] MEDS: buPROPion HCl 100 MG TAB PO SCH ×2 (08:12→21:33)
[2020-08-14] MEDS: Pregabalin 75 MG CAP PO SCH ×3 (08:13→21:32)
[2020-08-14] MEDS: Mometasone 100 MCG/Formoterol 5 MCG 120 PUFF INHALER INH SCH ×2 (08:20→19:29)
[2020-08-14] MEDS: Diazepam 10 MG/2 ML SYRINGE IVP PRN (08:40)
[2020-08-14 09:57] LABS: #Lymphocytes 0.7 thou/uL (1.20-3.40); #Monocytes 0.4 thou/uL (0.11-0.59); #Neutrophils 7.2 thou/uL (1.40-6.50); %Basophils 0.2 % (0.0-1.0); %Eosinophils 0.6 % (0.0-10.0); %Lymphocytes 8.4 % (21.0-51.0); %Monocytes 4.3 % (0.0-10.0); %Neutrophils 86.5 % (42.0-75.0); Hemoglobin 12.5 g/dL (14.0-18.0); Mean Corpuscular HGB CONC 32.4 g/dL (32.0-36.0); Mean Corpuscular Hemoglobin 31.1 pg (27.0-31.0); Mean Corpuscular Volume 96.1 fL (78.0-98.0); Platelet Count 46 thou/uL (130-400); RBC Distribution Width 13.3 % (11.5-14.5); Red Blood Cell (RBC) Count 4.03 mill/uL (4.70-6.10); White Blood Cell (WBC) Count 8.4 thou/uL (4.8-10.8)
[2020-08-14 10:13] LABS: Anion Gap 12 mmol/L (10-20); BUN (Urea Nitrogen) 23 mg/dL (8.4-25.7); Calc. Creatinine Clearance 140 mL/min (70-130); Calcium 8.4 mg/dL (7.8-10.44); Carbon Dioxide 24 mmol/L (23-31); Chloride 103 mmol/L (98-107); Glucose 113 mg/dL (80-115); Potassium 4.3 mmol/L (3.5-5.1); Sodium 135 mmol/L (136-145)
--- NOTE | 2020-08-14 10:18 | RAD ---
CHEST 1 VIEW: Date: 08/14/2020 HISTORY: Hypoxia. COMPARISON: Radiograph dated 08/06/2020. FINDINGS: The parenchymal opacities throughout the chest have slightly improved from the comparison radiograph. Pulmonary arteries are dilated, likely from known pulmonary emboli. No pneumothorax or significant e ffusion. Heart size mildly enlarged. Aortic contour is mildly tortuous. IMPRESSION: Slightly improving lung aeration. POS: OFF
[2020-08-14] MEDS: Morphine 2 MG/ML VIAL SLOW IVP PRN ×2 (11:24→17:41)
[2020-08-14] MEDS: Lorazepam 2 MG/ML VIAL SLOW IVP PRN (14:45)
[2020-08-14] MEDS: Transdermal Patch Removal TOP SCH (21:33)
[2020-08-14] MEDS: Dexamethasone 4 mg/ml Vial SLOW IVP SCH (21:42)
[2020-08-15] MEDS: HYDROcodone/Acetaminophen 5/325 mg Tablet PO SCH ×4 (07:35→20:50)
[2020-08-15] MEDS: Mometasone 100 MCG/Formoterol 5 MCG 120 PUFF INHALER INH SCH ×2 (07:40→20:49)
[2020-08-15] MEDS: Pregabalin 75 MG CAP PO SCH ×3 (08:00→20:51)
[2020-08-15] MEDS: Cholecalciferol 1,000 UNITS (25 MCG) TAB PO SCH (08:01)
[2020-08-15] MEDS: Lidocaine 5% Patch TD SCH (08:02)
[2020-08-15] MEDS: Polyethylene Glycol 3350 17 GM Packet PO SCH (08:04)
[2020-08-15] MEDS: Morphine 2 MG/ML VIAL SLOW IVP PRN ×2 (09:40→17:02)
[2020-08-15] MEDS: Lisinopril 10 MG TAB PO SCH (09:41)
[2020-08-15] MEDS: buPROPion HCl 100 MG TAB PO SCH ×2 (09:41→20:50)
[2020-08-15] MEDS: FONDAPARINUX SODIUM SC SCH (09:41)
[2020-08-15] MEDS: Diazepam 10 MG/2 ML SYRINGE IVP PRN (13:14)
--- NOTE | 2020-08-15 13:57 | PDOC.HOSPP ---
- Subjective Encounter Date: 08/15/20 Encounter Time: 13:56 Subjective: Mr. Abreu was seen today in follow-up of PE, and recent COVID infection. He says he is breathing about the same. He also notes some anxiety symptoms, but denies feeling any more depressed. He feels it is situational. - Objective Vital Signs & Weight: Vital Signs (12 hours) Temp Pulse Pulse Resp BP BP BP 08/15/20 12:00 98.2 F 114 H 20 109/75 08/15/20 10:09 121 H 121/71 08/15/20 09:41 121/82 08/15/20 08:01 08/15/20 07:54 97.9 F 119 H 24 H 96/77 08/15/20 07:41 08/15/20 07:40 08/15/20 06:00 111 H 24 H 100/69 08/15/20 04:00 98.1 F 118 H 24 H 147/64 H 08/15/20 02:00 80 20 112/65 Pulse Ox Pulse Ox 08/15/20 12:00 91 L 08/15/20 10:09 88 L 08/15/20 09:41 08/15/20 08:01 90 L 08/15/20 07:54 88 L 08/15/20 07:41 94 L 08/15/20 07:40 94 L 08/15/20 06:00 87 L 08/15/20 04:00 88 L 08/15/20 02:00 89 L Weight Admit Weight 228 lb 6.4 oz Weight 228 lb 6.4 oz Most Recent Monitor Data Heart Rate from ECG 66 NIBP 102/75 NIBP BP-Mean 77 Respiration from ECG 29 SpO2 93 I&O: 08/14/20 08/15/20 08/16/20 06:59 06:59 06:59 Intake Total 1042 660 118 Output Total 1425 550 200 Balance -383 110 -82 Result Diagrams: 08/14/20 09:26 08/14/20 09:26 Hospitalist ROS - Medication Medications: Active Medications Generic Name Dose Route Start Last Admin Trade Name Freq PRN Reason Stop Dose Admin Hydrocodone Bitart/Acetaminophen 1 tab 08/07/20 04:05 08/14/20 04:51 Hydrocodone/Acetaminophen 5/325 Mg Tablet PO 1 tab Q4H PRN Administration Moderate Pain (4-6) Hydrocodone Bitart/Acetaminophen 1 tab 08/08/20 08:00 08/15/20 07:58 Hydrocodone/Acetaminophen 5/325 Mg Tablet PO 1 tab 0200,0800,1400,2000 SAVANNA Administration Bupropion HCl 200 mg 08/07/20 09:00 08/15/20 09:41 Bupropion Hcl 100 Mg Tab PO 200 mg BID SAVANNA Administration Cholecalciferol 2,000 units 08/07/20 09:00 08/15/20 08:01 Cholecalciferol 1,000 Units (25 Mcg) Tab PO 2,000 units DAILY SAVANNA Administration Dexamethasone 6 mg 08/07/20 22:00 08/14/20 21:42 Dexamethasone 4 Mg/Ml Vial SLOW IVP 6 mg Q24HR SAVANNA Administration Diazepam 2 mg 08/11/20 10:20 08/15/20 13:14 Diazepam 10 Mg/2 Ml Syringe IVP 2 mg Q6HR PRN Administration Anxiety/Restlessness/Sleep Fondaparinux 7.5 mg/ Syringe 0.6 mls @ 0 mls/hr 08/13/20 06:00 08/15/20 09:41 SC 0.6 mls DAILY@0600 SAVANNA Administration Lidocaine 1 patch 08/10/20 09:00 08/15/20 08:02 Lidocaine 5% Patch TD 1 patch 0900 SAVANNA Administration Lisinopril 10 mg 08/07/20 09:00 08/15/20 09:41 Lisinopril 10 Mg Tab PO 10 mg QAM SAVANNA Administration Lorazepam 1 mg 08/07/20 04:07 08/14/20 14:45 Lorazepam 2 Mg/Ml Vial SLOW IVP 1 mg Q4H PRN Administration Anxiety/Agitation Miscellaneous Medication 1 each 08/09/20 21:00 08/14/20 21:33 Lidocaine Patch Removal 1 Each TOP Not Given 2100 [facility] Mometasone Furoate/Formoterol Fumar 1 puff 08/07/20 06:30 08/15/20 07:40 Mometasone 100 Mcg/Formoterol 5 Mcg 120 Puff Inhaler INH 1 puff BID-RT SAVANNA Administration Morphine Sulfate 2 mg 08/07/20 04:05 08/15/20 09:40 Morphine 2 Mg/Ml Vial SLOW IVP 2 mg Q4H PRN Administration severe pain 4-10 Pantoprazole Sodium 40 mg 08/07/20 09:00 08/15/20 08:01 Pantoprazole 40 Mg Tab PO 40 mg DAILY SAVANNA Administration Polyethylene Glycol 17 gm 08/07/20 09:00 08/15/20 08:04 Polyethylene Glycol 3350 17 Gm Packet PO Not Given DAILY SAVANNA Pregabalin 75 mg 08/07/20 09:00 08/15/20 08:00 Pregabalin 75 Mg Cap PO 75 mg TID SAVANNA Administration Hospitalist Exam Vitals: Vital Signs (12 hours) Temp Pulse Pulse Resp BP BP BP 08/15/20 12:00 98.2 F 114 H 20 109/75 08/15/20 10:09 121 H 121/71 08/15/20 09:41 121/82 08/15/20 08:01 08/15/20 07:54 97.9 F 119 H 24 H 96/77 08/15/20 07:41 08/15/20 07:40 08/15/20 06:00 111 H 24 H 100/69 08/15/20 04:00 98.1 F 118 H 24 H 147/64 H 08/15/20 02:00 80 20 112/65 Pulse Ox Pulse Ox 08/15/20 12:00 91 L 08/15/20 10:09 88 L 08/15/20 09:41 08/15/20 08:01 90 L 08/15/20 07:54 88 L 08/15/20 07:41 94 L 08/15/20 07:40 94 L 08/15/20 06:00 87 L 08/15/20 04:00 88 L 08/15/20 02:00 89 L Weight Admit Weight 228 lb 6.4 oz Weight 228 lb 6.4 oz Most Recent Monitor Data Heart Rate from ECG 66 NIBP 102/75 NIBP BP-Mean 77 Respiration from ECG 29 SpO2 93 Eye: PERRL, anicteric sclera Heart: RRR, no murmur, no gallops, no rubs, normal peripheral pulses Respiratory: no wheezes, no ronchi, rales (at both bases) Gastrointestinal: soft, non-tender, non-distended, normal bowel sounds, no palpable masses, no hepatomegaly Extremities: no cyanosis, no edema Hosp A/P (1) Bilateral pulmonary embolism Code(s): I26.99 - OTHER PULMONARY EMBOLISM WITHOUT ACUTE COR PULMONALE Status: Acute (2) Acute respiratory failure with hypoxemia Code(s): J96.01 - ACUTE RESPIRATORY FAILURE WITH HYPOXIA Status: Acute (3) ADHD Status: Chronic (4) Hypertension Code(s): I10 - ESSENTIAL (PRIMARY) HYPERTENSION Status: Chronic - Plan * Acute respiratory failure due to PE as well as low pulmonary reserve due to Chronic lung changes due to COVID- Continue Atrixtra * Continue to wean oxygen as tolerated * HTN- blood pressure is stable * ADHD- stable * Generalized Anxiety- continue low dose Valium as needed * Continue PT/OT * Very slow improvement continues to require high flow
--- NOTE | 2020-08-15 14:01 | PDOC.HOSPP ---
- Subjective Encounter Date: 08/14/20 Encounter Time: 12:00 Subjective: Mr. Abreu was seen today in follow-up of Pulmonary Embolus, and respiratory failure. He says he feels just a little bit better, but he appears extremely fatigued. - Objective Vital Signs & Weight: Vital Signs (12 hours) Temp Pulse Pulse Resp BP BP BP 08/15/20 12:00 98.2 F 114 H 20 109/75 08/15/20 10:09 121 H 121/71 08/15/20 09:41 121/82 08/15/20 08:01 08/15/20 07:54 97.9 F 119 H 24 H 96/77 08/15/20 07:41 08/15/20 07:40 08/15/20 06:00 111 H 24 H 100/69 08/15/20 04:00 98.1 F 118 H 24 H 147/64 H 08/15/20 02:00 80 20 112/65 Pulse Ox Pulse Ox 08/15/20 12:00 91 L 08/15/20 10:09 88 L 08/15/20 09:41 08/15/20 08:01 90 L 08/15/20 07:54 88 L 08/15/20 07:41 94 L 08/15/20 07:40 94 L 08/15/20 06:00 87 L 08/15/20 04:00 88 L 08/15/20 02:00 89 L Weight Admit Weight 228 lb 6.4 oz Weight 228 lb 6.4 oz Most Recent Monitor Data Heart Rate from ECG 66 NIBP 102/75 NIBP BP-Mean 77 Respiration from ECG 29 SpO2 93 I&O: 08/14/20 08/15/20 08/16/20 06:59 06:59 06:59 Intake Total 1042 660 118 Output Total 1425 550 200 Balance -383 110 -82 Result Diagrams: 08/14/20 09:26 08/14/20 09:26 Hospitalist ROS - Medication Medications: Active Medications Generic Name Dose Route Start Last Admin Trade Name Freq PRN Reason Stop Dose Admin Hydrocodone Bitart/Acetaminophen 1 tab 08/07/20 04:05 08/14/20 04:51 Hydrocodone/Acetaminophen 5/325 Mg Tablet PO 1 tab Q4H PRN Administration Moderate Pain (4-6) Hydrocodone Bitart/Acetaminophen 1 tab 08/08/20 08:00 08/15/20 07:58 Hydrocodone/Acetaminophen 5/325 Mg Tablet PO 1 tab 0200,0800,1400,2000 SAVANNA Administration Bupropion HCl 200 mg 08/07/20 09:00 08/15/20 09:41 Bupropion Hcl 100 Mg Tab PO 200 mg BID SAVANNA Administration Cholecalciferol 2,000 units 08/07/20 09:00 08/15/20 08:01 Cholecalciferol 1,000 Units (25 Mcg) Tab PO 2,000 units DAILY SAVANNA Administration Dexamethasone 6 mg 08/07/20 22:00 08/14/20 21:42 Dexamethasone 4 Mg/Ml Vial SLOW IVP 6 mg Q24HR SAVANNA Administration Diazepam 2 mg 08/11/20 10:20 08/15/20 13:14 Diazepam 10 Mg/2 Ml Syringe IVP 2 mg Q6HR PRN Administration Anxiety/Restlessness/Sleep Fondaparinux 7.5 mg/ Syringe 0.6 mls @ 0 mls/hr 08/13/20 06:00 08/15/20 09:41 SC 0.6 mls DAILY@0600 SAVANNA Administration Lidocaine 1 patch 08/10/20 09:00 08/15/20 08:02 Lidocaine 5% Patch TD 1 patch 0900 SAVANNA Administration Lisinopril 10 mg 08/07/20 09:00 08/15/20 09:41 Lisinopril 10 Mg Tab PO 10 mg QAM SAVANNA Administration Lorazepam 1 mg 08/07/20 04:07 08/14/20 14:45 Lorazepam 2 Mg/Ml Vial SLOW IVP 1 mg Q4H PRN Administration Anxiety/Agitation Miscellaneous Medication 1 each 08/09/20 21:00 08/14/20 21:33 Lidocaine Patch Removal 1 Each TOP Not Given 2100 [facility] Mometasone Furoate/Formoterol Fumar 1 puff 08/07/20 06:30 08/15/20 07:40 Mometasone 100 Mcg/Formoterol 5 Mcg 120 Puff Inhaler INH 1 puff BID-RT SAVANNA Administration Morphine Sulfate 2 mg 08/07/20 04:05 08/15/20 09:40 Morphine 2 Mg/Ml Vial SLOW IVP 2 mg Q4H PRN Administration severe pain 4-10 Pantoprazole Sodium 40 mg 08/07/20 09:00 08/15/20 08:01 Pantoprazole 40 Mg Tab PO 40 mg DAILY SAVANNA Administration Polyethylene Glycol 17 gm 08/07/20 09:00 08/15/20 08:04 Polyethylene Glycol 3350 17 Gm Packet PO Not Given DAILY SAVANNA Pregabalin 75 mg 08/07/20 09:00 08/15/20 08:00 Pregabalin 75 Mg Cap PO 75 mg TID SAVANNA Administration Hospitalist Exam Vitals: Vital Signs (12 hours) Temp Pulse Pulse Resp BP BP BP 08/15/20 12:00 98.2 F 114 H 20 109/75 08/15/20 10:09 121 H 121/71 08/15/20 09:41 121/82 08/15/20 08:01 08/15/20 07:54 97.9 F 119 H 24 H 96/77 08/15/20 07:41 08/15/20 07:40 08/15/20 06:00 111 H 24 H 100/69 08/15/20 04:00 98.1 F 118 H 24 H 147/64 H 08/15/20 02:00 80 20 112/65 Pulse Ox Pulse Ox 08/15/20 12:00 91 L 08/15/20 10:09 88 L 08/15/20 09:41 08/15/20 08:01 90 L 08/15/20 07:54 88 L 08/15/20 07:41 94 L 08/15/20 07:40 94 L 08/15/20 06:00 87 L 08/15/20 04:00 88 L 08/15/20 02:00 89 L Weight Admit Weight 228 lb 6.4 oz Weight 228 lb 6.4 oz Most Recent Monitor Data Heart Rate from ECG 66 NIBP 102/75 NIBP BP-Mean 77 Respiration from ECG 29 SpO2 93 Eye: PERRL, anicteric sclera Heart: RRR, no murmur, no gallops, no rubs Respiratory: no wheezes, no ronchi, rales (at both bases) Gastrointestinal: soft, non-tender, non-distended, normal bowel sounds, no palpable masses, no hepatomegaly Extremities: no cyanosis, 1+ LE edema Hosp A/P (1) Bilateral pulmonary embolism Code(s): I26.99 - OTHER PULMONARY EMBOLISM WITHOUT ACUTE COR PULMONALE Status: Acute (2) Acute respiratory failure with hypoxemia Code(s): J96.01 - ACUTE RESPIRATORY FAILURE WITH HYPOXIA Status: Acute (3) ADHD Status: Chronic (4) Hypertension Code(s): I10 - ESSENTIAL (PRIMARY) HYPERTENSION Status: Chronic - Plan * Acute respiratory failure due to PE as well as low pulmonary reserve due to Chronic lung changes due to COVID- Continue Atrixtra * Continue to wean oxygen as tolerated * HTN- blood pressure is stable * ADHD- stable * Generalized Anxiety- continue low dose Valium as needed * Continue PT/OT * Continue to monitor in the hospital * Pulmonary following as well
--- NOTE | 2020-08-15 14:27 | PRG ---
DATE OF SERVICE: 08/15/2020 SUBJECTIVE: Mr. Abreu says he is actually feeling better. OBJECTIVE: VITAL SIGNS: Today, he is afebrile. Heart rate is 114, respiratory rate is 20, oximetry is 91. He is still on high-flow oxygen. LUNGS: Clear. HEART: Regular rhythm. ABDOMEN: Soft. DIAGNOSTIC STUDIES: Chest x-ray is unchanged. IMPRESSION: 1. Pulmonary emboli. 2. Inflammatory changes on chest x-ray, secondary to recent COVID infection. PLAN: Continue supportive care. Weaning of O2 as tolerated with a goal saturation of 88%, using the lowest concentration of oxygen possible. Job ID: [id number]
[2020-08-15] MEDS: Dexamethasone 4 mg/ml Vial SLOW IVP SCH (20:51)
[2020-08-15] MEDS: Transdermal Patch Removal TOP SCH (20:52)
[2020-08-16] MEDS: Morphine 2 MG/ML VIAL SLOW IVP PRN ×4 (01:15→23:33)
[2020-08-16] MEDS: HYDROcodone/Acetaminophen 5/325 mg Tablet PO SCH ×4 (02:24→22:10)
[2020-08-16] MEDS: Mometasone 100 MCG/Formoterol 5 MCG 120 PUFF INHALER INH SCH ×2 (07:05→19:52)
[2020-08-16 08:34] LABS: #Lymphocytes 0.9 thou/uL (1.20-3.40); #Monocytes 0.5 thou/uL (0.11-0.59); #Neutrophils 8.6 thou/uL (1.40-6.50); %Eosinophils 0.3 % (0.0-10.0); %Lymphocytes 8.9 % (21.0-51.0); %Monocytes 4.5 % (0.0-10.0); %Neutrophils 86.3 % (42.0-75.0); Hemoglobin 13.6 g/dL (14.0-18.0); Mean Corpuscular HGB CONC 32.2 g/dL (32.0-36.0); Mean Corpuscular Hemoglobin 30.9 pg (27.0-31.0); Mean Corpuscular Volume 96.1 fL (78.0-98.0); Mean Platelet Volume 10.2 fL (7.4-10.4); Platelet Count 74 thou/uL (130-400); RBC Distribution Width 13.6 % (11.5-14.5); Red Blood Cell (RBC) Count 4.39 mill/uL (4.70-6.10)
[2020-08-16 08:59] LABS: Anion Gap 15 mmol/L (10-20); BUN (Urea Nitrogen) 22 mg/dL (8.4-25.7); Calc. Creatinine Clearance 142 mL/min (70-130); Calcium 8.6 mg/dL (7.8-10.44); Carbon Dioxide 20 mmol/L (23-31); Chloride 105 mmol/L (98-107); Glucose 108 mg/dL (80-115); Potassium 4.3 mmol/L (3.5-5.1); Sodium 136 mmol/L (136-145)
[2020-08-16] MEDS: Lisinopril 10 MG TAB PO SCH (09:12)
[2020-08-16] MEDS: buPROPion HCl 100 MG TAB PO SCH ×2 (09:12→22:09)
[2020-08-16] MEDS: Cholecalciferol 1,000 UNITS (25 MCG) TAB PO SCH (09:12)
[2020-08-16] MEDS: Pregabalin 75 MG CAP PO SCH ×3 (09:13→22:09)
[2020-08-16] MEDS: Polyethylene Glycol 3350 17 GM Packet PO SCH (09:13)
[2020-08-16] MEDS: Lidocaine 5% Patch TD SCH (09:13)
[2020-08-16] MEDS: Diazepam 10 MG/2 ML SYRINGE IVP PRN (09:25)
[2020-08-16] MEDS: FONDAPARINUX SODIUM SC SCH (14:55)
--- NOTE | 2020-08-16 15:01 | PDOC.HOSPP ---
- Subjective Encounter Date: 08/16/20 Encounter Time: 15:00 Subjective: Mr. Abreu was seen today in follow-up of Pulmonary Embolus. He does not have any new comlaints, and says he feels better, and says it happened suddenly. - Objective Vital Signs & Weight: Vital Signs (12 hours) Temp Pulse Resp BP Pulse Ox 08/16/20 11:30 98.2 F 111 H 18 129/82 88 L 08/16/20 08:00 98.5 F 112 H 26 H 120/82 86 L 08/16/20 07:06 96 08/16/20 07:05 87 20 96 08/16/20 05:47 109 H 22 H 125/81 90 L 08/16/20 05:12 91 L 08/16/20 04:00 97.9 F 105 H 21 H 121/78 99 Weight Admit Weight 228 lb 6.4 oz Weight 228 lb 6.4 oz Most Recent Monitor Data Heart Rate from ECG 66 NIBP 102/75 NIBP BP-Mean 77 Respiration from ECG 29 SpO2 93 I&O: 08/15/20 08/16/20 08/17/20 06:59 06:59 06:59 Intake Total 660 1048 520 Output Total 550 950 Balance 110 98 520 Result Diagrams: 08/16/20 08:23 08/16/20 08:23 Hospitalist ROS - Medication Medications: Active Medications Generic Name Dose Route Start Last Admin Trade Name Freq PRN Reason Stop Dose Admin Hydrocodone Bitart/Acetaminophen 1 tab 08/07/20 04:05 08/14/20 04:51 Hydrocodone/Acetaminophen 5/325 Mg Tablet PO 1 tab Q4H PRN Administration Moderate Pain (4-6) Hydrocodone Bitart/Acetaminophen 1 tab 08/08/20 08:00 08/16/20 14:54 Hydrocodone/Acetaminophen 5/325 Mg Tablet PO 1 tab 0200,0800,1400,2000 SAVANNA Administration Bupropion HCl 200 mg 08/07/20 09:00 08/16/20 09:12 Bupropion Hcl 100 Mg Tab PO 200 mg BID SAVANNA Administration Cholecalciferol 2,000 units 08/07/20 09:00 08/16/20 09:12 Cholecalciferol 1,000 Units (25 Mcg) Tab PO 2,000 units DAILY SAVANNA Administration Dexamethasone 6 mg 08/07/20 22:00 08/15/20 20:51 Dexamethasone 4 Mg/Ml Vial SLOW IVP 6 mg Q24HR SAVANNA Administration Diazepam 2 mg 08/11/20 10:20 08/16/20 09:25 Diazepam 10 Mg/2 Ml Syringe IVP 2 mg Q6HR PRN Administration Anxiety/Restlessness/Sleep Fondaparinux 7.5 mg/ Syringe 0.6 mls @ 0 mls/hr 08/13/20 06:00 08/16/20 14:55 SC 0.6 mls DAILY@0600 SAVANNA Administration Lidocaine 1 patch 08/10/20 09:00 08/16/20 09:13 Lidocaine 5% Patch TD 1 patch 0900 SAVANNA Administration Lisinopril 10 mg 08/07/20 09:00 08/16/20 09:12 Lisinopril 10 Mg Tab PO 10 mg QAM SAVANNA Administration Lorazepam 1 mg 08/07/20 04:07 08/14/20 14:45 Lorazepam 2 Mg/Ml Vial SLOW IVP 1 mg Q4H PRN Administration Anxiety/Agitation Miscellaneous Medication 1 each 08/09/20 21:00 08/15/20 20:52 Lidocaine Patch Removal 1 Each TOP Not Given 2100 SAVANNA Mometasone Furoate/Formoterol Fumar 1 puff 08/07/20 06:30 08/16/20 07:05 Mometasone 100 Mcg/Formoterol 5 Mcg 120 Puff Inhaler INH 1 puff BID-RT SAVANNA Administration Morphine Sulfate 2 mg 08/07/20 04:05 08/16/20 11:01 Morphine 2 Mg/Ml Vial SLOW IVP 2 mg Q4H PRN Administration severe pain 4-10 Pantoprazole Sodium 40 mg 08/07/20 09:00 08/16/20 09:13 Pantoprazole 40 Mg Tab PO 40 mg DAILY SAVANNA Administration Polyethylene Glycol 17 gm 08/07/20 09:00 08/16/20 09:13 Polyethylene Glycol 3350 17 Gm Packet PO Not Given DAILY SAVANNA Pregabalin 75 mg 08/07/20 09:00 08/16/20 14:55 Pregabalin 75 Mg Cap PO 75 mg TID SAVANNA Administration Hospitalist Exam Vitals: Vital Signs (12 hours) Temp Pulse Resp BP Pulse Ox 08/16/20 11:30 98.2 F 111 H 18 129/82 88 L 08/16/20 08:00 98.5 F 112 H 26 H 120/82 86 L 08/16/20 07:06 96 08/16/20 07:05 87 20 96 08/16/20 05:47 109 H 22 H 125/81 90 L 08/16/20 05:12 91 L 08/16/20 04:00 97.9 F 105 H 21 H 121/78 99 Weight Admit Weight 228 lb 6.4 oz Weight 228 lb 6.4 oz Most Recent Monitor Data Heart Rate from ECG 66 NIBP 102/75 NIBP BP-Mean 77 Respiration from ECG 29 SpO2 93 Eye: PERRL, anicteric sclera Heart: RRR, no murmur, no gallops, no rubs, normal peripheral pulses Respiratory: rales (at both bases, no wheezing or rhonchi) Gastrointestinal: soft, non-tender, non-distended, normal bowel sounds, no palpable masses, no hepatomegaly, no splenomegaly Extremities: no cyanosis, no edema Hosp A/P (1) Bilateral pulmonary embolism Code(s): I26.99 - OTHER PULMONARY EMBOLISM WITHOUT ACUTE COR PULMONALE Status: Acute (2) Acute respiratory failure with hypoxemia Code(s): J96.01 - ACUTE RESPIRATORY FAILURE WITH HYPOXIA Status: Acute (3) ADHD Status: Chronic (4) Hypertension Code(s): I10 - ESSENTIAL (PRIMARY) HYPERTENSION Status: Chronic - Plan * Acute respiratory failure due to PE as well as low pulmonary reserve due to 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
[2020-08-16] MEDS: Dexamethasone 4 mg/ml Vial SLOW IVP SCH (22:11)
[2020-08-16] MEDS: Transdermal Patch Removal TOP SCH (22:11)
[2020-08-17] MEDS: HYDROcodone/Acetaminophen 5/325 mg Tablet PO SCH ×4 (03:57→21:08)
[2020-08-17] MEDS: Mometasone 100 MCG/Formoterol 5 MCG 120 PUFF INHALER INH SCH ×2 (07:35→23:26)
[2020-08-17] MEDS: Lidocaine 5% Patch TD SCH (07:52)
[2020-08-17] MEDS: Pregabalin 75 MG CAP PO SCH ×3 (07:53→21:23)
[2020-08-17] MEDS: Diazepam 10 MG/2 ML SYRINGE IVP PRN ×2 (08:50→21:10)
[2020-08-17] MEDS: Lisinopril 10 MG TAB PO SCH (10:33)
[2020-08-17] MEDS: buPROPion HCl 100 MG TAB PO SCH ×2 (10:33→21:23)
[2020-08-17] MEDS: Cholecalciferol 1,000 UNITS (25 MCG) TAB PO SCH (10:34)
[2020-08-17] MEDS: Polyethylene Glycol 3350 17 GM Packet PO SCH (10:34)
--- NOTE | 2020-08-17 11:39 | PRG ---
DATE OF SERVICE: 08/17/2020 SUBJECTIVE: He remains comfortable on high-flow. He was in the room earlier. OBJECTIVE: VITAL SIGNS: His sats were 100% on 69%, heart rate is 109, he is afebrile, respiratory rate is 18, and blood pressure 106/85. LUNGS: Unchanged. HEART: Unchanged. ABDOMEN: Unchanged. IMPRESSION: 1. Recent COVID pneumonia. 2. Thromboembolic disease. PLAN: Continue supportive care. He is on Arixtra because of relative thrombocytopenia. He probably can be switched to Eliquis soon. Job ID: [id number]
[2020-08-17] MEDS: FONDAPARINUX SODIUM SC SCH (13:33)
--- NOTE | 2020-08-17 13:48 | PDOC.HOSPP ---
- Subjective Encounter Date: 08/17/20 Encounter Time: 13:47 Subjective: Mr. Abreu was seen today in follow-up of Pulmonary Embolus. He is a bit more fatigued today, and notes some pain in the left side - Objective Vital Signs & Weight: Vital Signs (12 hours) Temp Pulse Resp BP Pulse Ox 08/17/20 12:00 98.2 F 115 H 24 H 117/77 92 L 08/17/20 10:36 118 H 24 H 119/89 89 L 08/17/20 08:00 97.8 F 109 H 18 106/85 93 L 08/17/20 06:16 108 H 22 H 116/87 97 08/17/20 04:16 98.0 F 108 H 22 H 113/94 H 98 08/17/20 03:21 92 L 08/17/20 02:00 105 H 22 H 93/75 98 Weight Admit Weight 228 lb 6.4 oz Weight 228 lb 6.4 oz Most Recent Monitor Data Heart Rate from ECG 66 NIBP 102/75 NIBP BP-Mean 77 Respiration from ECG 29 SpO2 93 I&O: 08/16/20 08/17/20 08/18/20 06:59 06:59 06:59 Intake Total 1048 660 Output Total 950 Balance 98 660 Result Diagrams: 08/16/20 08:23 08/16/20 08:23 Hospitalist ROS - Medication Medications: Active Medications Generic Name Dose Route Start Last Admin Trade Name Freq PRN Reason Stop Dose Admin Hydrocodone Bitart/Acetaminophen 1 tab 08/08/20 08:00 08/17/20 13:33 Hydrocodone/Acetaminophen 5/325 Mg Tablet PO 1 tab 0200,0800,1400,2000 SAVANNA Administration Bupropion HCl 200 mg 08/07/20 09:00 08/17/20 10:33 Bupropion Hcl 100 Mg Tab PO 200 mg BID SAVANNA Administration Cholecalciferol 2,000 units 08/07/20 09:00 08/17/20 10:34 Cholecalciferol 1,000 Units (25 Mcg) Tab PO 2,000 units DAILY SAVANNA Administration Dexamethasone 6 mg 08/07/20 22:00 08/16/20 22:11 Dexamethasone 4 Mg/Ml Vial SLOW IVP 6 mg Q24HR SAVANNA Administration Diazepam 2 mg 08/11/20 10:20 08/17/20 08:50 Diazepam 10 Mg/2 Ml Syringe IVP 2 mg Q6HR PRN Administration Anxiety/Restlessness/Sleep Fondaparinux 7.5 mg/ Syringe 0.6 mls @ 0 mls/hr 08/13/20 06:00 08/17/20 13:33 SC 0.6 mls DAILY@0600 SAVANNA Administration Lidocaine 1 patch 08/10/20 09:00 08/17/20 07:52 Lidocaine 5% Patch TD 1 patch 0900 SAVANNA Administration Lisinopril 10 mg 08/07/20 09:00 08/17/20 10:33 Lisinopril 10 Mg Tab PO 10 mg QAM SAVANNA Administration Miscellaneous Medication 1 each 08/09/20 21:00 08/16/20 22:11 Lidocaine Patch Removal 1 Each TOP Not Given 2100 [facility] Mometasone Furoate/Formoterol Fumar 1 puff 08/07/20 06:30 08/17/20 07:35 Mometasone 100 Mcg/Formoterol 5 Mcg 120 Puff Inhaler INH 1 puff BID-RT SAVANNA Administration Pantoprazole Sodium 40 mg 08/07/20 09:00 08/17/20 10:33 Pantoprazole 40 Mg Tab PO 40 mg DAILY SAVANNA Administration Polyethylene Glycol 17 gm 08/07/20 09:00 08/17/20 10:34 Polyethylene Glycol 3350 17 Gm Packet PO Not Given DAILY SAVANNA Pregabalin 75 mg 08/07/20 09:00 08/17/20 07:53 Pregabalin 75 Mg Cap PO 75 mg TID SAVANNA Administration Hospitalist Exam Vitals: Vital Signs (12 hours) Temp Pulse Resp BP Pulse Ox 08/17/20 12:00 98.2 F 115 H 24 H 117/77 92 L 08/17/20 10:36 118 H 24 H 119/89 89 L 08/17/20 08:00 97.8 F 109 H 18 106/85 93 L 08/17/20 06:16 108 H 22 H 116/87 97 08/17/20 04:16 98.0 F 108 H 22 H 113/94 H 98 08/17/20 03:21 92 L 08/17/20 02:00 105 H 22 H 93/75 98 Weight Admit Weight 228 lb 6.4 oz Weight 228 lb 6.4 oz Most Recent Monitor Data Heart Rate from ECG 66 NIBP 102/75 NIBP BP-Mean 77 Respiration from ECG 29 SpO2 93 Eye: PERRL, anicteric sclera Heart: RRR, no murmur, no gallops, no rubs, normal peripheral pulses Respiratory: rales (at both bases, no rhonchi) Gastrointestinal: soft, non-tender, non-distended, normal bowel sounds, no palpable masses, no hepatomegaly Extremities: no cyanosis, 1+ LE edema Hosp A/P (1) Bilateral pulmonary embolism Code(s): I26.99 - OTHER PULMONARY EMBOLISM WITHOUT ACUTE COR PULMONALE Status: Acute (2) Acute respiratory failure with hypoxemia Code(s): J96.01 - ACUTE RESPIRATORY FAILURE WITH HYPOXIA Status: Acute (3) ADHD Status: Chronic (4) Hypertension Code(s): I10 - ESSENTIAL (PRIMARY) HYPERTENSION Status: Chronic - Plan * Acute respiratory failure due to PE as well as low pulmonary reserve due to Chronic lung changes due to COVID- Continue Atrixtra * Continue to wean oxygen as tolerated * HTN- blood pressure is stable * ADHD- stable * Generalized Anxiety- continue low dose Valium as needed * Continue PT/OT * Continue to monitor in the hospital * Symptom management
[2020-08-17] MEDS: HYDROcodone/Acetaminophen 5/325 mg Tablet PO PRN ×2 (17:55→22:44)
[2020-08-17] MEDS: Dexamethasone 4 mg/ml Vial SLOW IVP SCH (21:24)
[2020-08-17] MEDS: Transdermal Patch Removal TOP SCH (21:24)
[2020-08-18] MEDS: HYDROcodone/Acetaminophen 5/325 mg Tablet PO SCH ×2 (01:54→09:53)
[2020-08-18] MEDS: HYDROcodone/Acetaminophen 5/325 mg Tablet PO PRN (06:37)
[2020-08-18] MEDS: FONDAPARINUX SODIUM SC SCH (06:37)
[2020-08-18] MEDS: Mometasone 100 MCG/Formoterol 5 MCG 120 PUFF INHALER INH SCH ×2 (07:42→23:13)
[2020-08-18] MEDS: Diazepam 10 MG/2 ML SYRINGE IVP PRN (07:52)
[2020-08-18] MEDS: buPROPion HCl 100 MG TAB PO SCH ×2 (09:48→21:03)
[2020-08-18] MEDS: Pregabalin 75 MG CAP PO SCH ×3 (09:48→21:03)
[2020-08-18] MEDS: Cholecalciferol 1,000 UNITS (25 MCG) TAB PO SCH (09:50)
[2020-08-18] MEDS: Lisinopril 10 MG TAB PO SCH (09:51)
[2020-08-18] MEDS: Lidocaine 5% Patch TD SCH (09:59)
[2020-08-18] MEDS: Polyethylene Glycol 3350 17 GM Packet PO SCH ×2 (09:59→10:01)
--- NOTE | 2020-08-18 10:33 | PDOC.HOSPP ---
- Subjective Encounter Date: 08/18/20 Subjective: very anxious and desaturate when he gets his panic attack. - Objective Vital Signs & Weight: Vital Signs (12 hours) Temp Pulse Resp BP BP Pulse Ox 08/18/20 09:51 125/87 08/18/20 07:44 96 08/18/20 07:42 94 L 08/18/20 07:16 98.3 F 112 H 20 125/87 98 08/18/20 06:00 112 H 25 H 109/68 92 L 08/18/20 04:00 98.3 F 111 H 21 H 97/66 98 08/18/20 02:04 111 H 18 142/87 H 88 L 08/18/20 00:00 117 H 23 H 102/77 99 08/17/20 23:26 94 L Weight Admit Weight 228 lb 6.4 oz Weight 228 lb 6.4 oz Most Recent Monitor Data Heart Rate from ECG 66 NIBP 102/75 NIBP BP-Mean 77 Respiration from ECG 29 SpO2 93 I&O: 08/17/20 08/18/20 08/19/20 06:59 06:59 06:59 Intake Total 660 240 Output Total 250 Balance 660 -10 Result Diagrams: 08/16/20 08:23 08/16/20 08:23 Hospitalist ROS - Medication Medications: Active Medications Generic Name Dose Route Start Last Admin Trade Name Freq PRN Reason Stop Dose Admin Hydrocodone Bitart/Acetaminophen 1 tab 08/17/20 13:46 08/18/20 06:37 Hydrocodone/Acetaminophen 5/325 Mg Tablet PO 1 tab Q4H PRN Administration Moderate to Severe Pain (6-10) Bupropion HCl 200 mg 08/07/20 09:00 08/18/20 09:48 Bupropion Hcl 100 Mg Tab PO 200 mg BID SAVANNA Administration Cholecalciferol 2,000 units 08/07/20 09:00 08/18/20 09:50 Cholecalciferol 1,000 Units (25 Mcg) Tab PO 2,000 units DAILY SAVANNA Administration Dexamethasone 6 mg 08/07/20 22:00 08/17/20 21:24 Dexamethasone 4 Mg/Ml Vial SLOW IVP 6 mg Q24HR SAVANNA Administration Diazepam 2 mg 08/11/20 10:20 08/18/20 07:52 Diazepam 10 Mg/2 Ml Syringe IVP 2 mg Q6HR PRN Administration Anxiety/Restlessness/Sleep Fondaparinux 7.5 mg/ Syringe 0.6 mls @ 0 mls/hr 08/13/20 06:00 08/18/20 06:37 SC 0.6 mls DAILY@0600 SAVANNA Administration Lidocaine 1 patch 08/10/20 09:00 08/18/20 09:59 Lidocaine 5% Patch TD 1 patch 0900 SAVANNA Administration Lisinopril 10 mg 08/07/20 09:00 08/18/20 09:51 Lisinopril 10 Mg Tab PO 10 mg QAM SAVANNA Administration Miscellaneous Medication 1 each 08/09/20 21:00 08/17/20 21:24 Lidocaine Patch Removal 1 Each TOP Not Given 2100 [facility] Mometasone Furoate/Formoterol Fumar 1 puff 08/07/20 06:30 08/18/20 07:42 Mometasone 100 Mcg/Formoterol 5 Mcg 120 Puff Inhaler INH 1 puff BID-RT SAVANNA Administration Pantoprazole Sodium 40 mg 08/07/20 09:00 08/18/20 09:51 Pantoprazole 40 Mg Tab PO 40 mg DAILY SAVANNA Administration Polyethylene Glycol 17 gm 08/07/20 09:00 08/18/20 10:01 Polyethylene Glycol 3350 17 Gm Packet PO Not Given DAILY SAVANNA Pregabalin 75 mg 08/07/20 09:00 08/18/20 09:48 Pregabalin 75 Mg Cap PO 75 mg TID SAVANNA Administration Hospitalist Exam Vitals: Vital Signs (12 hours) Temp Pulse Resp BP BP Pulse Ox 08/18/20 09:51 125/87 08/18/20 07:44 96 08/18/20 07:42 94 L 08/18/20 07:16 98.3 F 112 H 20 125/87 98 08/18/20 06:00 112 H 25 H 109/68 92 L 08/18/20 04:00 98.3 F 111 H 21 H 97/66 98 08/18/20 02:04 111 H 18 142/87 H 88 L 08/18/20 00:00 117 H 23 H 102/77 99 08/17/20 23:26 94 L Weight Admit Weight 228 lb 6.4 oz Weight 228 lb 6.4 oz Most Recent Monitor Data Heart Rate from ECG 66 NIBP 102/75 NIBP BP-Mean 77 Respiration from ECG 29 SpO2 93 General Appearance: ill appearing Eye: PERRL, anicteric sclera ENT: normocephalic atraumatic, no oropharyngeal lesions Neck: supple, symmetric, no JVD Heart: RRR, no murmur Respiratory: rales, rhonchi Gastrointestinal: soft, non-tender, non-distended Extremities: no cyanosis, no clubbing Hosp A/P (1) Anxiety Code(s): F41.9 - ANXIETY DISORDER, UNSPECIFIED Status: Acute (2) Bilateral pulmonary embolism Code(s): I26.99 - OTHER PULMONARY EMBOLISM WITHOUT ACUTE COR PULMONALE Status: Acute (3) Type 2 myocardial infarction Code(s): I21.A1 - MYOCARDIAL INFARCTION TYPE 2 Status: Acute (4) Acute respiratory failure with hypoxemia Code(s): J96.01 - ACUTE RESPIRATORY FAILURE WITH HYPOXIA Status: Acute (5) Pneumonia due to COVID-19 virus Code(s): U07.1 - COVID-19; J12.82 - PNEUMONIA DUE TO CORONAVIRUS DISEASE 2018 Status: Acute (6) ADHD Status: Chronic - Plan plan for today 08/18 psych ---appears very anxious and desaturate when he is in this state, I will resume his scheduled dose of xanax 1 MG tid, he is fixated on that and he might do better with it, will keep the Valium PRN. pulmonary--PE due to hypercoagulability in the setting of covid pneumonia---he is on Arixtra, still requires high flow. ARF--resolved, I will recheck labs in am as he has low appetite and is not taking much orally. Hem--Thrombocytopenia, hence the Arixtra, I will recheck his labs in am.
--- NOTE | 2020-08-18 14:27 | PRG ---
DATE OF SERVICE: 08/18/2020 SUBJECTIVE: Mr. Abreu is anxious. He says he takes 1 mg of Xanax 3 times a day at home. It looks like his alprazolam has been restarted. OBJECTIVE: VITAL SIGNS: He is afebrile. Heart rate 115, respiratory rates in the 20s. His oximetry is in the mid 90s when I was in the room and his FiO2 is now below 60%. LUNGS: Unchanged. Heart: Unchanged. ABDOMEN: Unchanged. IMPRESSION: 1. Respiratory failure secondary to postinflammatory changes secondary to COVID. 2. Thromboembolic disease. PLAN: Start him on Eliquis today. Hopefully with the anxiolytics he will get better. His steroid dosing could be decreased slightly . He has not been out of bed at all, so weakness will be an enormous factor with him moving forward. Job ID: [id number]
[2020-08-18] MEDS: ALPRAZolam 1 MG TAB PO SCH ×2 (14:47→21:04)
--- NOTE | 2020-08-18 16:42 | EKG ---
Test Reason : Blood Pressure : / mmHG Vent. Rate : 124 BPM Atrial Rate : 124 BPM P-R Int : 134 ms QRS Dur : 086 ms QT Int : 314 ms P-R-T Axes : 040 077 041 degrees QTc Int : 451 ms Sinus tachycardia Otherwise normal ECG Confirmed by TAMMIE WYNN, WOLF Guzman ([id number]), manager editorial KIMMIE LITTLE ([id number]) on 08/18/2020 4:42:39 PM Referred By: Confirmed By:WOLF CHO MD
[2020-08-18] MEDS: Apixaban 5 MG TAB PO SCH (21:04)
[2020-08-18] MEDS: Transdermal Patch Removal TOP SCH (22:46)
[2020-08-18] MEDS: Dexamethasone 4 mg/ml Vial SLOW IVP SCH (22:52)
[2020-08-19] MEDS ORDERED: Midodrine HCl 5 MG TAB PO SCH ×2 (02:15→19:15)
[2020-08-19 05:37] LABS: Anion Gap 14 mmol/L (10-20); BUN (Urea Nitrogen) 39 mg/dL (8.4-25.7); Calc. Creatinine Clearance 91 mL/min (70-130); Calcium 9.4 mg/dL (7.8-10.44); Carbon Dioxide 25 mmol/L (23-31); Chloride 105 mmol/L (98-107); Glucose 84 mg/dL (80-115); Potassium 4.8 mmol/L (3.5-5.1); Sodium 139 mmol/L (136-145)
[2020-08-19 05:40] LABS: Eosinophils 1 % (0-10); Hemoglobin 15.2 g/dL (14.0-18.0); Lymphocytes 11 % (21-51); MDiff Complete? YES; Mean Corpuscular HGB CONC 31.5 g/dL (32.0-36.0); Mean Corpuscular Hemoglobin 30.2 pg (27.0-31.0); Mean Corpuscular Volume 95.8 fL (78.0-98.0); Mean Platelet Volume 10.1 fL (7.4-10.4); Monocytes 2 % (0-10); Neutrophil 86 % (42-75); Platelet Count 175 thou/uL (130-400); Platelet Morphology Comment Appears Adequate; RBC Distribution Width 14.2 % (11.5-14.5); Red Blood Cell (RBC) Count 5.02 mill/uL (4.70-6.10); White Blood Cell (WBC) Count 20.4 thou/uL (4.8-10.8)
[2020-08-19] MEDS: Mometasone 100 MCG/Formoterol 5 MCG 120 PUFF INHALER INH SCH ×2 (07:25→21:37)
[2020-08-19] MEDS: buPROPion HCl 100 MG TAB PO SCH ×2 (08:34→21:35)
[2020-08-19] MEDS: Pregabalin 75 MG CAP PO SCH ×3 (08:34→21:36)
[2020-08-19] MEDS: Cholecalciferol 1,000 UNITS (25 MCG) TAB PO SCH (08:34)
[2020-08-19] MEDS: Apixaban 5 MG TAB PO SCH ×2 (08:36→21:35)
[2020-08-19] MEDS: ALPRAZolam 1 MG TAB PO SCH ×3 (08:36→21:35)
[2020-08-19] MEDS: Polyethylene Glycol 3350 17 GM Packet PO SCH (08:37)
[2020-08-19] MEDS: Lisinopril 10 MG TAB PO SCH (08:37)
[2020-08-19] MEDS: Lidocaine 5% Patch TD SCH (08:38)
[2020-08-19] MEDS: HYDROcodone/Acetaminophen 5/325 mg Tablet PO PRN ×3 (08:46→23:38)
--- NOTE | 2020-08-19 13:20 | PDOC.HOSPP ---
- Subjective Encounter Date: 08/19/20 Subjective: appears more relaxed today, but gets very sob while talking. - Objective Vital Signs & Weight: Vital Signs (12 hours) Temp Pulse Resp BP BP Pulse Ox 08/19/20 12:00 98.1 F 113 H 28 H 102/70 94 L 08/19/20 08:37 125/87 08/19/20 08:00 92 L 08/19/20 07:48 97.7 F 112 H 28 H 118/85 95 08/19/20 07:25 25 H 97 08/19/20 07:23 97 08/19/20 06:00 114 H 16 105/73 97 08/19/20 04:00 98.0 F 113 H 18 101/71 96 08/19/20 02:00 115 H 20 95/69 98 Weight Admit Weight 228 lb 6.4 oz Weight 228 lb 6.4 oz Most Recent Monitor Data Heart Rate from ECG 66 NIBP 102/75 NIBP BP-Mean 77 Respiration from ECG 29 SpO2 93 I&O: 08/18/20 08/19/20 08/20/20 06:59 06:59 06:59 Intake Total 240 720 Output Total 250 200 Balance -10 520 Result Diagrams: 08/19/20 04:53 08/19/20 04:53 Hospitalist ROS - Medication Medications: Active Medications Generic Name Dose Route Start Last Admin Trade Name Freq PRN Reason Stop Dose Admin Hydrocodone Bitart/Acetaminophen 1 tab 08/17/20 13:46 08/19/20 13:16 Hydrocodone/Acetaminophen 5/325 Mg Tablet PO 1 tab Q4H PRN Administration Moderate to Severe Pain (6-10) Alprazolam 1 mg 08/18/20 15:00 08/19/20 08:36 Alprazolam 1 Mg Tab PO 1 mg TID SAVANNA Administration Apixaban 5 mg 08/18/20 21:00 08/19/20 08:36 Apixaban 5 Mg Tab PO 5 mg BID SAVANNA Administration Bupropion HCl 200 mg 08/07/20 09:00 08/19/20 08:34 Bupropion Hcl 100 Mg Tab PO 200 mg BID SAVANNA Administration Cholecalciferol 2,000 units 08/07/20 09:00 08/19/20 08:34 Cholecalciferol 1,000 Units (25 Mcg) Tab PO 2,000 units DAILY SAVANNA Administration Dexamethasone 6 mg 08/07/20 22:00 08/18/20 22:52 Dexamethasone 4 Mg/Ml Vial SLOW IVP 6 mg Q24HR SAVANNA Administration Diazepam 2 mg 08/11/20 10:20 08/18/20 07:52 Diazepam 10 Mg/2 Ml Syringe IVP 2 mg Q6HR PRN Administration Anxiety/Restlessness/Sleep Lidocaine 1 patch 08/10/20 09:00 08/19/20 08:38 Lidocaine 5% Patch TD 1 patch 0900 SAVANNA Administration Miscellaneous Medication 1 each 08/09/20 21:00 08/18/20 22:46 Lidocaine Patch Removal 1 Each TOP Not Given 2100 [facility] Mometasone Furoate/Formoterol Fumar 1 puff 08/07/20 06:30 08/19/20 07:25 Mometasone 100 Mcg/Formoterol 5 Mcg 120 Puff Inhaler INH 1 puff BID-RT SAVANNA Administration Pantoprazole Sodium 40 mg 08/07/20 09:00 08/19/20 08:36 Pantoprazole 40 Mg Tab PO 40 mg DAILY SAVANNA Administration Polyethylene Glycol 17 gm 08/07/20 09:00 08/19/20 08:37 Polyethylene Glycol 3350 17 Gm Packet PO Not Given DAILY SAVANNA Pregabalin 75 mg 08/07/20 09:00 08/19/20 08:34 Pregabalin 75 Mg Cap PO 75 mg TID SAVANNA Administration Hospitalist Exam Vitals: Vital Signs (12 hours) Temp Pulse Resp BP BP Pulse Ox 08/19/20 12:00 98.1 F 113 H 28 H 102/70 94 L 08/19/20 08:37 125/87 08/19/20 08:00 92 L 08/19/20 07:48 97.7 F 112 H 28 H 118/85 95 08/19/20 07:25 25 H 97 08/19/20 07:23 97 08/19/20 06:00 114 H 16 105/73 97 08/19/20 04:00 98.0 F 113 H 18 101/71 96 08/19/20 02:00 115 H 20 95/69 98 Weight Admit Weight 228 lb 6.4 oz Weight 228 lb 6.4 oz Most Recent Monitor Data Heart Rate from ECG 66 NIBP 102/75 NIBP BP-Mean 77 Respiration from ECG 29 SpO2 93 General Appearance: NAD Eye: PERRL ENT: normocephalic atraumatic Neck: supple, symmetric Heart: RRR, no murmur, no gallops Respiratory: rales Gastrointestinal: soft, non-tender Extremities: no cyanosis, no clubbing Hosp A/P (1) Anxiety Code(s): F41.9 - ANXIETY DISORDER, UNSPECIFIED Status: Acute (2) Bilateral pulmonary embolism Code(s): I26.99 - OTHER PULMONARY EMBOLISM WITHOUT ACUTE COR PULMONALE Status: Acute (3) Type 2 myocardial infarction Code(s): I21.A1 - MYOCARDIAL INFARCTION TYPE 2 Status: Acute (4) Acute respiratory failure with hypoxemia Code(s): J96.01 - ACUTE RESPIRATORY FAILURE WITH HYPOXIA Status: Acute (5) Pneumonia due to COVID-19 virus Code(s): U07.1 - COVID-19; J12.82 - PNEUMONIA DUE TO CORONAVIRUS DISEASE 2019 Status: Acute (6) ADHD Status: Chronic - Plan plan for today 08/18 psych ---appears very anxious and desaturate when he is in this state, I will resume his scheduled dose of xanax 1 MG tid, he is fixated on that and he might do better with it, will keep the Valium PRN. pulmonary--PE due to hypercoagulability in the setting of covid pneumonia---he is on Arixtra, still requires high flow. ARF--resolved, I will recheck labs in am as he has low appetite and is not t aking much orally. Hem--Thrombocytopenia, hence the Arixtra, I will recheck his labs in am. Plan for today 08/19 psych ---appears less anxious and desaturate when he speaks, his scheduled dose of xanax 1 MG tid is helping him relax. pulmonary--PE due to hypercoagulability in the setting of covid pneumonia---he is now on Eliquis, still requires high flow. ARF--resolved, I will recheck labs in am as he has low appetite and is not taking much orally. Hem--Thrombocytopenia, will continue to monitor. cardiac--his BP is low/soft, I will stop his GEORGI inhibitor.
--- NOTE | 2020-08-19 13:40 | PRG ---
DATE OF SERVICE: 08/19/2020 SUBJECTIVE: Russell Abreu is afebrile. Still has mild resting tachycardia. OBJECTIVE: VITAL SIGNS: His lungs are clear. HEART: Regular rhythm. ABDOMEN: Soft. He said he sat up on the side of the bed yesterday. LABORATORY DATA: White count is 20, hemoglobin is 15, platelets 175. He has no bands on his peripheral smear, 86 segs. Electrolytes are unremarkable. BUN 39, creatinine 1.12, FiO2 is at 59%, oximetry is in the mid 90s. We need to continue to make efforts to decrease his FiO2 to a point that is as low as possible to get his O2 saturation between 88 and 92. He needs to continue with his exercises. His steroids could be switched to an enteral route. He appreciates the Xanax and says he feels much better now that he is back on his baseline dose of Xanax. We will see less frequently. Job ID: [id number]
[2020-08-19] MEDS ORDERED: Sodium Chloride 0.9% 500 ML IV SCH (19:15)
[2020-08-19 20:00] LABS: #Basophils 0.1 thou/uL (0.0-0.2); #Eosinphils 0.5 thou/uL (0.0-0.7); #Lymphocytes 2.7 thou/uL (1.20-3.40); #Monocytes 1.3 thou/uL (0.11-0.59); #Neutrophils 14.3 thou/uL (1.40-6.50); %Basophils 0.5 % (0.0-1.0); %Eosinophils 2.9 % (0.0-10.0); %Lymphocytes 14.2 % (21.0-51.0); %Monocytes 6.8 % (0.0-10.0); %Neutrophils 75.6 % (42.0-75.0); Mean Corpuscular Hemoglobin 30.7 pg (27.0-31.0); Mean Corpuscular Volume 95.9 fL (78.0-98.0); Mean Platelet Volume 9.9 fL (7.4-10.4); Platelet Count 168 thou/uL (130-400); Red Blood Cell (RBC) Count 4.58 mill/uL (4.70-6.10); White Blood Cell (WBC) Count 18.9 thou/uL (4.8-10.8)
[2020-08-19 20:19] LABS: Anion Gap 16 mmol/L (10-20); BUN (Urea Nitrogen) 55 mg/dL (8.4-25.7); Calc. Creatinine Clearance 71 mL/min (70-130); Calcium 8.8 mg/dL (7.8-10.44); Carbon Dioxide 20 mmol/L (23-31); Chloride 106 mmol/L (98-107); Glucose 104 mg/dL (80-115); Potassium 4.1 mmol/L (3.5-5.1); Sodium 138 mmol/L (136-145)
[2020-08-19] MEDS: Dexamethasone 4 mg/ml Vial SLOW IVP SCH (21:35)
[2020-08-20] MEDS: Mometasone 100 MCG/Formoterol 5 MCG 120 PUFF INHALER INH SCH ×2 (06:52→19:24)
[2020-08-20] MEDS: Cholecalciferol 1,000 UNITS (25 MCG) TAB PO SCH (07:43)
[2020-08-20] MEDS: Polyethylene Glycol 3350 17 GM Packet PO SCH (07:43)
[2020-08-20] MEDS: ALPRAZolam 1 MG TAB PO SCH ×3 (07:43→23:41)
[2020-08-20] MEDS: Pregabalin 75 MG CAP PO SCH ×3 (07:44→23:42)
[2020-08-20] MEDS: Lidocaine 5% Patch TD SCH (07:44)
[2020-08-20] MEDS: Apixaban 5 MG TAB PO SCH ×2 (07:44→23:41)
[2020-08-20 08:07] LABS: #Lymphocytes 1.4 thou/uL (1.20-3.40); #Monocytes 0.4 thou/uL (0.11-0.59); #Neutrophils 10.7 thou/uL (1.40-6.50); %Basophils 0.2 % (0.0-1.0); %Eosinophils 0.3 % (0.0-10.0); %Monocytes 3.3 % (0.0-10.0); %Neutrophils 85.2 % (42.0-75.0); Hemoglobin 13.9 g/dL (14.0-18.0); Mean Corpuscular HGB CONC 31.3 g/dL (32.0-36.0); Mean Platelet Volume 10.3 fL (7.4-10.4); Platelet Count 153 thou/uL (130-400); RBC Distribution Width 14.1 % (11.5-14.5); Red Blood Cell (RBC) Count 4.63 mill/uL (4.70-6.10); White Blood Cell (WBC) Count 12.6 thou/uL (4.8-10.8)
[2020-08-20 08:22] LABS: Anion Gap 16 mmol/L (10-20); BUN (Urea Nitrogen) 51 mg/dL (8.4-25.7); Calc. Creatinine Clearance 116 mL/min (70-130); Carbon Dioxide 21 mmol/L (23-31); Chloride 107 mmol/L (98-107); Glucose 119 mg/dL (80-115); Potassium 4.9 mmol/L (3.5-5.1); Sodium 139 mmol/L (136-145)
[2020-08-20] MEDS: HYDROcodone/Acetaminophen 5/325 mg Tablet PO PRN ×2 (11:51→15:57)
[2020-08-20] MEDS: buPROPion HCl 100 MG TAB PO SCH ×2 (11:51→23:41)
--- NOTE | 2020-08-20 16:35 | PDOC.HOSPP ---
- Subjective Encounter Date: 08/20/20 Subjective: Looks the same as yesterday - Objective Vital Signs & Weight: Vital Signs (12 hours) Temp Pulse Resp BP Pulse Ox 08/20/20 16:00 97.3 F L 109/74 08/20/20 12:00 98.2 F 110 H 08/20/20 11:09 95 08/20/20 10:00 98.3 F 111 H 111/84 08/20/20 08:05 98 08/20/20 08:00 95 08/20/20 07:47 96.8 F L 111 H 106/73 08/20/20 07:35 89 L 08/20/20 07:30 64 L 08/20/20 07:12 95 08/20/20 06:53 99 08/20/20 06:52 102 H 24 H 99 08/20/20 06:00 22 H 88/77 L 94 L Weight Admit Weight 228 lb 6.4 oz Weight 228 lb 6.4 oz Most Recent Monitor Data Heart Rate from ECG 66 NIBP 102/75 NIBP BP-Mean 77 Respiration from ECG 29 SpO2 93 I&O: 08/19/20 08/20/20 08/21/20 06:59 06:59 06:59 Intake Total 720 620 Output Total 200 625 Balance 520 -5 Result Diagrams: 08/20/20 07:22 08/20/20 07:22 Hospitalist ROS - Medication Medications: Active Medications Generic Name Dose Route Start Last Admin Trade Name Freq PRN Reason Stop Dose Admin Hydrocodone Bitart/Acetaminophen 1 tab 08/17/20 13:46 08/20/20 15:57 Hydrocodone/Acetaminophen 5/325 Mg Tablet PO 1 tab Q4H PRN Administration Moderate to Severe Pain (6-10) Alprazolam 1 mg 08/18/20 15:00 08/20/20 15:56 Alprazolam 1 Mg Tab PO 1 mg TID SAVANNA Administration Apixaban 5 mg 08/18/20 21:00 08/20/20 07:44 Apixaban 5 Mg Tab PO 5 mg BID SAVANNA Administration Bupropion HCl 200 mg 08/07/20 09:00 08/20/20 11:51 Bupropion Hcl 100 Mg Tab PO 200 mg BID SAVANNA Administration Cholecalciferol 2,000 units 08/07/20 09:00 08/20/20 07:43 Cholecalciferol 1,000 Units (25 Mcg) Tab PO 2,000 units DAILY SAVANNA Administration Diazepam 2 mg 08/11/20 10:20 08/18/20 07:52 Diazepam 10 Mg/2 Ml Syringe IVP 2 mg Q6HR PRN Administration Anxiety/Restlessness/Sleep Lidocaine 1 patch 08/10/20 09:00 08/20/20 07:44 Lidocaine 5% Patch TD 1 patch 0900 SAVANNA Administration Miscellaneous Medication 1 each 08/09/20 21:00 08/18/20 22:46 Lidocaine Patch Removal 1 Each TOP Not Given 2100 [facility] Mometasone Furoate/Formoterol Fumar 1 puff 08/07/20 06:30 08/20/20 06:52 Mometasone 100 Mcg/Formoterol 5 Mcg 120 Puff Inhaler INH 1 puff BID-RT SAVANNA Administration Pantoprazole Sodium 40 mg 08/07/20 09:00 08/20/20 07:43 Pantoprazole 40 Mg Tab PO 40 mg DAILY SAVANNA Administration Polyethylene Glycol 17 gm 08/07/20 09:00 08/20/20 07:43 Polyethylene Glycol 3350 17 Gm Packet PO 17 gm DAILY SAVANNA Administration Pregabalin 75 mg 08/07/20 09:00 08/20/20 15:59 Pregabalin 75 Mg Cap PO Not Given TID [facility] Hospitalist Exam Vitals: Vital Signs (12 hours) Temp Pulse Resp BP Pulse Ox 08/20/20 16:00 97.3 F L 109/74 08/20/20 12:00 98.2 F 110 H 08/20/20 11:09 95 08/20/20 10:00 98.3 F 111 H 111/84 08/20/20 08:05 98 08/20/20 08:00 95 08/20/20 07:47 96.8 F L 111 H 106/73 08/20/20 07:35 89 L 08/20/20 07:30 64 L 08/20/20 07:12 95 08/20/20 06:53 99 08/20/20 06:52 102 H 24 H 99 08/20/20 06:00 22 H 88/77 L 94 L Weight Admit Weight 228 lb 6.4 oz Weight 228 lb 6.4 oz Most Recent Monitor Data Heart Rate from ECG 66 NIBP 102/75 NIBP BP-Mean 77 Respiration from ECG 29 SpO2 93 General Appearance: NAD, awake alert Eye: PERRL ENT: normocephalic atraumatic Neck: supple, symmetric Heart: RRR Respiratory: rales Gastrointestinal: soft, non-tender, non-distended Hosp A/P (1) Anxiety Code(s): F41.9 - ANXIETY DISORDER, UNSPECIFIED Status: Acute (2) Bilateral pulmonary embolism Code(s): I26.99 - OTHER PULMONARY EMBOLISM WITHOUT ACUTE COR PULMONALE Status: Acute (3) Type 2 myocardial infarction Code(s): I21.A1 - MYOCARDIAL INFARCTION TYPE 2 Status: Acute (4) Acute respiratory failure with hypoxemia Code(s): J96.01 - ACUTE RESPIRATORY FAILURE WITH HYPOXIA Status: Acute (5) Pneumonia due to COVID-19 virus Code(s): U07.1 - COVID-19; J12.82 - PNEUMONIA DUE TO CORONAVIRUS DISEASE 2019 Status: Acute (6) ADHD Status: Chronic - Plan plan for today 08/18 psych ---appears very anxious and desaturate when he is in this state, I will resume his scheduled dose of xanax 1 MG tid, he is fixated on that and he might do better with it, will keep the Valium PRN. pulmonary--PE due to hypercoagulability in the setting of covid pneumonia---he is on Arixtra, still requires high flow. ARF--resolved, I will recheck labs in am as he has low appetite and is not taking much orally. Hem--Thrombocytopenia, hence the Arixtra, I will recheck his labs in am. Plan for today 08/19 psych ---appears less anxious and desaturate when he speaks, his scheduled dose of xanax 1 MG tid is helping him relax. pulmonary--PE due to hypercoagulability in the setting of covid pneumonia---he is now on Eliquis, still requires high flow. ARF--resolved, I will recheck labs in am as he has low appetite and is not taking much orally. Hem--Thrombocytopenia, will continue to monitor. cardiac--his BP is low/soft, I will stop his GEORGI inhibitor. Plan for today 08/20 psych ---appears less anxious, his scheduled dose of xanax 1 MG tid is helping him relax. pulmonary--PE due to hypercoagulability in the setting of covid pneumonia---he is now on Eliquis, still requires high flow but he is requiring less oxygen today compared to yesterday. As per pulmonary recommendation I will change his Decadron to p.o. Hem--Thrombocytopenia, his platelet count is recovering nicely, I will give him a lab holiday tomorrow. cardiac--his BP was low/soft, his GEORGI inhibitor was stopped and his blood pressure is improving.
[2020-08-20] MEDS: Morphine 2 MG/ML VIAL SLOW IVP PRN (18:26)
[2020-08-20] MEDS: Transdermal Patch Removal TOP SCH (21:00)
[2020-08-21] MEDS: Morphine 2 MG/ML VIAL SLOW IVP PRN (02:06)
[2020-08-21] MEDS: Lidocaine 5% Patch TD SCH (07:56)
[2020-08-21] MEDS: Polyethylene Glycol 3350 17 GM Packet PO SCH (07:56)
[2020-08-21] MEDS: buPROPion HCl 100 MG TAB PO SCH ×2 (07:56→20:07)
[2020-08-21] MEDS: Cholecalciferol 1,000 UNITS (25 MCG) TAB PO SCH (07:56)
[2020-08-21] MEDS: Apixaban 5 MG TAB PO SCH ×2 (07:57→20:07)
[2020-08-21] MEDS: ALPRAZolam 1 MG TAB PO SCH ×3 (07:57→20:07)
[2020-08-21] MEDS: Pregabalin 75 MG CAP PO SCH ×3 (07:57→20:07)
[2020-08-21] MEDS: Mometasone 100 MCG/Formoterol 5 MCG 120 PUFF INHALER INH SCH ×2 (08:39→18:28)
[2020-08-21] MEDS: Dexamethasone 4 MG TAB PO SCH (10:30)
--- NOTE | 2020-08-21 15:21 | PDOC.HOSPP ---
- Subjective Subjective: Does not report any improvement he feels same as yesterday - Objective Vital Signs & Weight: Vital Signs (12 hours) Temp Pulse Pulse Resp BP BP Pulse Ox 08/21/20 13:54 92 L 08/21/20 11:17 98 F 117 H 32 H 90/73 97 08/21/20 10:50 90 L 08/21/20 10:36 121 H 90/73 08/21/20 10:00 98.2 F 104/71 08/21/20 08:39 95 08/21/20 07:35 97.5 F L 112 H 24 H 121/87 100 08/21/20 05:59 110 H 14 97/81 94 L 08/21/20 04:00 109 H 12 95/81 94 L Pulse Ox 08/21/20 13:54 08/21/20 11:17 08/21/20 10:50 08/21/20 10:36 88 L 08/21/20 10:00 08/21/20 08:39 08/21/20 07:35 08/21/20 05:59 08/21/20 04:00 Weight Admit Weight 228 lb 6.4 oz Weight 228 lb 6.4 oz Most Recent Monitor Data Heart Rate from ECG 66 NIBP 102/75 NIBP BP-Mean 77 Respiration from ECG 29 SpO2 93 I&O: 08/20/20 08/21/20 08/22/20 06:59 06:59 06:59 Intake Total 620 300 Output Total 625 200 Balance -5 100 Result Diagrams: 08/20/20 07:22 08/20/20 07:22 Hospitalist ROS - Medication Medications: Active Medications Generic Name Dose Route Start Last Admin Trade Name Freq PRN Reason Stop Dose Admin Hydrocodone Bitart/Acetaminophen 1 tab 08/17/20 13:46 08/20/20 15:57 Hydrocodone/Acetaminophen 5/325 Mg Tablet PO 1 tab Q4H PRN Administration Moderate to Severe Pain (6-10) Alprazolam 1 mg 08/18/20 15:00 08/21/20 07:57 Alprazolam 1 Mg Tab PO 1 mg TID SAVANNA Administration Apixaban 5 mg 08/18/20 21:00 08/21/20 07:57 Apixaban 5 Mg Tab PO 5 mg BID SAVANNA Administration Bupropion HCl 200 mg 08/07/20 09:00 08/21/20 07:56 Bupropion Hcl 100 Mg Tab PO 200 mg BID SAVANNA Administration Cholecalciferol 2,000 units 08/07/20 09:00 08/21/20 07:56 Cholecalciferol 1,000 Units (25 Mcg) Tab PO 2,000 units DAILY SAVANNA Administration Dexamethasone 6 mg 08/21/20 09:00 08/21/20 10:30 Dexamethasone 4 Mg Tab PO 6 mg Q24HR SAVANNA Administration Lidocaine 1 patch 08/10/20 09:00 08/21/20 07:56 Lidocaine 5% Patch TD 1 patch 09 SAVANNA Administration Miscellaneous Medication 1 each 08/09/20 21:00 08/20/20 21:00 Lidocaine Patch Removal 1 Each TOP 1 each 2100 SAVANNA Administration Mometasone Furoate/Formoterol Fumar 1 puff 08/07/20 06:30 08/21/20 08:39 Mometasone 100 Mcg/Formoterol 5 Mcg 120 Puff Inhaler INH 1 puff BID-RT SAVANNA Administration Morphine Sulfate 2 mg 08/17/20 18:35 08/21/20 02:06 Morphine 2 Mg/Ml Vial SLOW IVP 2 mg Q4H PRN Administration Moderate to Severe Pain (6-10) Pantoprazole Sodium 40 mg 08/07/20 09:00 08/21/20 07:56 Pantoprazole 40 Mg Tab PO 40 mg DAILY SAVANNA Administration Polyethylene Glycol 17 gm 08/07/20 09:00 08/21/20 07:56 Polyethylene Glycol 3350 17 Gm Packet PO 17 gm DAILY SAVANNA Administration Pregabalin 75 mg 08/07/20 09:00 08/21/20 07:57 Pregabalin 75 Mg Cap PO 75 mg TID SAVANNA Administration Hospitalist Exam Vitals: Vital Signs (12 hours) Temp Pulse Pulse Resp BP BP Pulse Ox 08/21/20 13:54 92 L 08/21/20 11:17 98 F 117 H 32 H 90/73 97 08/21/20 10:50 90 L 08/21/20 10:36 121 H 90/73 08/21/20 10:00 98.2 F 104/71 08/21/20 08:39 95 08/21/20 07:35 97.5 F L 112 H 24 H 121/87 100 08/21/20 05:59 110 H 14 97/81 94 L 08/21/20 04:00 109 H 12 95/81 94 L Pulse Ox 08/21/20 13:54 08/21/20 11:17 08/21/20 10:50 08/21/20 10:36 88 L 08/21/20 10:00 08/21/20 08:39 08/21/20 07:35 08/21/20 05:59 08/21/20 04:00 Weight Admit Weight 228 lb 6.4 oz Weight 228 lb 6.4 oz Most Recent Monitor Data Heart Rate from ECG 66 NIBP 102/75 NIBP BP-Mean 77 Respiration from ECG 29 SpO2 93 General Appearance: NAD, awake alert Eye: PERRL, anicteric sclera ENT: normocephalic atraumatic Neck: supple, symmetric Heart: RRR, no murmur Respiratory: CTAB, rales Gastrointestinal: soft, non-tender Extremities: no cyanosis, no clubbing Skin: normal turgor Hosp A/P (1) Anxiety Code(s): F41.9 - ANXIETY DISORDER, UNSPECIFIED Status: Acute (2) Bilateral pulmonary embolism Code(s): I26.99 - OTHER PULMONARY EMBOLISM WITHOUT ACUTE COR PULMONALE Status: Acute (3) Type 2 myocardial infarction Code(s): I21.A1 - MYOCARDIAL INFARCTION TYPE 2 Status: Acute (4) Acute respiratory failure with hypoxemia Code(s): J96.01 - ACUTE RESPIRATORY FAILURE WITH HYPOXIA Status: Acute (5) Pneumonia due to COVID-19 virus Code(s): U07.1 - COVID-19; J12.82 - PNEUMONIA DUE TO CORONAVIRUS DISEASE 2019 Status: Acute (6) ADHD Status: Chronic - Plan plan for today 08/18 psych ---appears very anxious and desaturate when he is in this state, I will resume his scheduled dose of xanax 1 MG tid, he is fixated on that and he might do better with it, will keep the Valium PRN. pulmonary--PE due to hypercoagulability in the setting of covid pneumonia---he is on Arixtra, still requires high flow. ARF--resolved, I will recheck labs in am as he has low appetite and is not taking much orally. Hem--Thrombocytopenia, hence the Arixtra, I will recheck his labs in am. Plan for today 08/19 psych ---appears less anxious and desaturate when he speaks, his scheduled dose of xanax 1 MG tid is helping him relax. pulmonary--PE due to hypercoagulability in the setting of covid pneumonia---he is now on Eliquis, still requires high flow. ARF--resolved, I will recheck labs in am as he has low appetite and is not taki ng much orally. Hem--Thrombocytopenia, will continue to monitor. cardiac--his BP is low/soft, I will stop his GEORGI inhibitor. Plan for today 08/20 psych ---appears less anxious, his scheduled dose of xanax 1 MG tid is helping him relax. pulmonary--PE due to hypercoagulability in the setting of covid pneumonia---he is now on Eliquis, still requires high flow but he is requiring less oxygen today compared to yesterday. As per pulmonary recommendation I will change his Decadron to p.o. Hem--Thrombocytopenia, his platelet count is recovering nicely, I will give him a lab holiday tomorrow. cardiac--his BP was low/soft, his GEORGI inhibitor was stopped and his blood p ressure is improving. Plan for today 08/21 He appears to be a bit worse than yesterday, continue same management for now as above and follow-up on pulmonary recommendation.
--- NOTE | 2020-08-21 15:53 | PRG ---
DATE OF SERVICE: 08/21/2020 SUBJECTIVE: Mr. Abreu was placed on BiPAP by the hospitalist this afternoon. He appears comfortable. He has symmetrical chest wall motion. His exhaled volumes with BiPAP 06/17 is around 450 to 470 mL. His respiratory rate is in the mid 20s. OBJECTIVE: LUNGS: He has equal breath sounds. HEART: Regular rhythm. ABDOMEN: Soft. IMPRESSION: The unfortunate problem here is that Mr. Abreu has refused to get out of bed and do anything since he has been admitted to the hospital and is probably 4 or 5 times weaker than he was when he got here. Muscle weakness I think is the biggest factor that is facing him now on top of the interstitial inflammatory changes in his lungs after having had COVID. We will continue to follow. Job ID: [id number]
[2020-08-21] MEDS: Transdermal Patch Removal TOP SCH (20:47)
[2020-08-22] MEDS: HYDROcodone/Acetaminophen 5/325 mg Tablet PO PRN ×3 (02:27→17:06)
[2020-08-22 04:35] LABS: #Eosinphils 0.1 thou/uL (0.0-0.7); #Lymphocytes 1.8 thou/uL (1.20-3.40); #Neutrophils 12.2 thou/uL (1.40-6.50); %Basophils 0.2 % (0.0-1.0); %Eosinophils 0.5 % (0.0-10.0); %Lymphocytes 11.9 % (21.0-51.0); %Monocytes 6.4 % (0.0-10.0); Hemoglobin 14.3 g/dL (14.0-18.0); Mean Corpuscular HGB CONC 31.3 g/dL (32.0-36.0); Mean Corpuscular Hemoglobin 30.3 pg (27.0-31.0); Mean Corpuscular Volume 96.6 fL (78.0-98.0); Mean Platelet Volume 10.3 fL (7.4-10.4); Platelet Count 156 thou/uL (130-400); RBC Distribution Width 14.1 % (11.5-14.5); Red Blood Cell (RBC) Count 4.72 mill/uL (4.70-6.10); White Blood Cell (WBC) Count 15.1 thou/uL (4.8-10.8)
[2020-08-22 04:49] LABS: Anion Gap 14 mmol/L (10-20); BUN (Urea Nitrogen) 39 mg/dL (8.4-25.7); Calc. Creatinine Clearance 123 mL/min (70-130); Calcium 9.3 mg/dL (7.8-10.44); Carbon Dioxide 25 mmol/L (23-31); Chloride 106 mmol/L (98-107); Glucose 96 mg/dL (80-115); Sodium 140 mmol/L (136-145)
[2020-08-22] MEDS: Transdermal Patch Removal TOP SCH ×2 (07:24→21:00)
[2020-08-22] MEDS ORDERED: Loperamide HCl 2 MG CAP PO PRN (07:51)
[2020-08-22] MEDS ORDERED: GUAIFENESIN SF SOLN 200 MG/10 ML UDCUP PO PRN (07:51)
[2020-08-22] MEDS ORDERED: Calcium Carbonate 500 MG ChewTAB PO PRN (07:51)
[2020-08-22] MEDS ORDERED: Loratadine 10 MG TAB PO PRN (07:51)
[2020-08-22] MEDS ORDERED: Benzonatate 100 MG CAP PO PRN (07:51)
[2020-08-22] MEDS ORDERED: Bisacodyl 10 MG SUPP PR PRN (07:51)
[2020-08-22] MEDS ORDERED: Ondansetron ODT 4 MG TAB PO PRN (07:51)
[2020-08-22] MEDS ORDERED: Sodium Chloride 0.65% Nasal 44 ML BOT EA NARE PRN (07:51)
[2020-08-22] MEDS ORDERED: Cepastat Lozenges 1 LOZ PO PRN (07:51)
[2020-08-22] MEDS ORDERED: Senokot S 8.6-50 MG TAB PO PRN (07:51)
[2020-08-22] MEDS: Mometasone 100 MCG/Formoterol 5 MCG 120 PUFF INHALER INH SCH ×2 (08:01→18:54)
[2020-08-22] MEDS: Dexamethasone 4 MG TAB PO SCH (09:24)
[2020-08-22] MEDS: buPROPion HCl 100 MG TAB PO SCH ×2 (09:25→21:07)
[2020-08-22] MEDS: Pregabalin 75 MG CAP PO SCH ×3 (09:25→21:08)
[2020-08-22] MEDS: ALPRAZolam 1 MG TAB PO SCH ×3 (09:26→21:08)
[2020-08-22] MEDS: Polyethylene Glycol 3350 17 GM Packet PO SCH (09:26)
[2020-08-22] MEDS: Cholecalciferol 1,000 UNITS (25 MCG) TAB PO SCH (09:26)
[2020-08-22] MEDS: Apixaban 5 MG TAB PO SCH ×2 (09:26→21:08)
[2020-08-22] MEDS: Lidocaine 5% Patch TD SCH (09:27)
--- NOTE | 2020-08-22 12:17 | PDOC.HOSPP ---
- Subjective Encounter Date: 08/22/20 Encounter Time: 07:30 Subjective: Patient seen and examined bedside today, patient has no new complaint, patient is physically very weak, he is on high flow oxygen, currently he is on 50 L 70% oxygen, he is tachycardic with little exertion, - Objective Vital Signs & Weight: Vital Signs (12 hours) Temp Pulse Resp BP Pulse Ox 08/22/20 12:00 113 H 26 H 147/90 H 94 L 08/22/20 11:45 97.6 F 106 H 24 H 109/77 97 08/22/20 10:00 97 F L 115 H 26 H 124/84 95 08/22/20 08:01 110 H 25 H 97 08/22/20 08:00 96.4 F L 111 H 27 H 114/87 97 08/22/20 07:59 105 H 25 H 124/91 H 97 08/22/20 06:00 96.9 F L 119 H 24 H 106/87 99 08/22/20 04:00 98.6 F 114 H 24 H 97/86 98 08/22/20 02:00 96.6 F L 109 H 36 H 100/66 98 Weight Admit Weight 228 lb 6.4 oz Weight 228 lb 6.4 oz Most Recent Monitor Data Heart Rate from ECG 66 NIBP 102/75 NIBP BP-Mean 77 Respiration from ECG 29 SpO2 93 I&O: 08/21/20 08/22/20 08/23/20 06:59 06:59 06:59 Intake Total 300 485 Output Total 200 400 Balance 100 85 Result Diagrams: 08/22/20 04:04 08/22/20 04:04 EKG Reviewed by me: Yes (Tachycardia) Hospitalist ROS - Review of Systems Constitutional: reports: weakness, malaise. denies: fever, chills, sweats, other Respiratory: reports: shortness of breath, SOB with excertion. denies: cough, dry, hemoptysis, pleuritic pain, sputum, wheezing, other Cardiovascular: denies: chest pain, palpitations, orthopnea, paroxysmal noc. dyspnea, edema, light headedness, other Gastrointestinal: denies: nausea, vomiting, abdominal pain, diarrhea, const ipation, melena, hematochezia, other Genitourinary: denies: dysuria, frequency, incontinence, hematuria, retention, other Musculoskeletal: denies: neck pain, shoulder pain, arm pain, back pain, hand pain, leg pain, foot pain, other - Medication Medications: Active Medications Generic Name Dose Route Start Last Admin Trade Name Freq PRN Reason Stop Dose Admin Hydrocodone Bitart/Acetaminophen 1 tab 08/17/20 13:46 08/22/20 12:13 Hydrocodone/Acetaminophen 5/325 Mg Tablet PO 1 tab Q4H PRN Administration Moderate to Severe Pain (6-10) Alprazolam 1 mg 08/18/20 15:00 08/22/20 09:26 Alprazolam 1 Mg Tab PO 1 mg TID SAVANNA Administration Apixaban 5 mg 08/18/20 21:00 08/22/20 09:26 Apixaban 5 Mg Tab PO 5 mg BID SAVANNA Administration Bupropion HCl 200 mg 08/07/20 09:00 08/22/20 09:25 Bupropion Hcl 100 Mg Tab PO 200 mg BID SAVANNA Administration Cholecalciferol 2,000 units 08/07/20 09:00 08/22/20 09:26 Cholecalciferol 1,000 Units (25 Mcg) Tab PO 2,000 units DAILY SAVANNA Administration Dexamethasone 6 mg 08/21/20 09:00 08/22/20 09:24 Dexamethasone 4 Mg Tab PO 6 mg Q24HR SAVANNA Administration Lidocaine 1 patch 08/10/20 09:00 08/22/20 09:27 Lidocaine 5% Patch TD 1 patch 0900 SAVANNA Administration Miscellaneous Medication 1 each 08/09/20 21:00 08/22/20 07:24 Lidocaine Patch Removal 1 Each TOP Not Given 2100 [facility] Mometasone Furoate/Formoterol Fumar 1 puff 08/07/20 06:30 08/22/20 08:01 Mometasone 100 Mcg/Formoterol 5 Mcg 120 Puff Inhaler INH 1 puff BID-RT SAVANNA Administration Morphine Sulfate 2 mg 08/17/20 18:35 08/21/20 02:06 Morphine 2 Mg/Ml Vial SLOW IVP 2 mg Q4H PRN Administration Moderate to Severe Pain (6-10) Pantoprazole Sodium 40 mg 08/07/20 09:00 08/22/20 09:24 Pantoprazole 40 Mg Tab PO 40 mg DAILY SAVANNA Administration Polyethylene Glycol 17 gm 08/07/20 09:00 08/22/20 09:26 Polyethylene Glycol 3350 17 Gm Packet PO Not Given DAILY SAVANNA Pregabalin 75 mg 08/07/20 09:00 08/22/20 09:25 Pregabalin 75 Mg Cap PO 75 mg TID SAVANNA Administration Sodium Chloride 10 ml 08/22/20 09:00 08/22/20 09:27 Flush - Normal Saline 10 Ml Syringe IVF 10 ml Q12HR SAVANNA Administration Hospitalist Exam Vitals: Vital Signs (12 hours) Temp Pulse Resp BP Pulse Ox 08/22/20 12:00 113 H 26 H 147/90 H 94 L 08/22/20 11:45 97.6 F 106 H 24 H 109/77 97 08/22/20 10:00 97 F L 115 H 26 H 124/84 95 08/22/20 08:01 110 H 25 H 97 08/22/20 08:00 96.4 F L 111 H 27 H 114/87 97 08/22/20 07:59 105 H 25 H 124/91 H 97 08/22/20 06:00 96.9 F L 119 H 24 H 106/87 99 08/22/20 04:00 98.6 F 114 H 24 H 97/86 98 08/22/20 02:00 96.6 F L 109 H 36 H 100/66 98 Weight Admit Weight 228 lb 6.4 oz Weight 228 lb 6.4 oz Most Recent Monitor Data Heart Rate from ECG 66 NIBP 102/75 NIBP BP-Mean 77 Respiration from ECG 29 SpO2 93 General Appearance: NAD, awake alert, ill appearing Eye: PERRL ENT: normocephalic atraumatic, no oropharyngeal lesions Neck: supple, symmetric, no JVD, no thyromegaly Heart: RRR, no murmur, no gallops, no rubs Heart - other findings: Tachycardia noted Respiratory - other findings: Air entry reduced but course breath sounds noted, Gastrointestinal: soft, non-tender, non-distended, normal bowel sounds Extremities: no cyanosis, no clubbing, no edema Skin: normal turgor, no lesions Neurological: no focal deficits Musculoskeletal: normal tone, normal strength Psychiatric: normal affect, normal behavior Hosp A/P (1) Pneumonia due to COVID-19 virus Code(s): U07.1 - COVID-19; J12.82 - PNEUMONIA DUE TO CORONAVIRUS DISEASE 2019 Status: Acute (2) Acute respiratory failure with hypoxemia Code(s): J96.01 - ACUTE RESPIRATORY FAILURE WITH HYPOXIA Status: Acute (3) Bilateral pulmonary embolism Code(s): I26.99 - OTHER PULMONARY EMBOLISM WITHOUT ACUTE COR PULMONALE Status: Acute (4) Acute renal failure Status: Acute (5) Type 2 myocardial infarction Code(s): I21.A1 - MYOCARDIAL INFARCTION TYPE 2 Status: Acute (6) Anxiety Code(s): F41.9 - ANXIETY DISORDER, UNSPECIFIED Status: Acute (7) ADHD Status: Chronic (8) Hypertension Code(s): I10 - ESSENTIAL (PRIMARY) HYPERTENSION Status: Chronic - Plan old records reviewed/req, PT/OT, social media intern Continue Eliquis 5 mg p.o. twice daily, Patient is on high flow oxygen, Continue PT OT as tolerated Medication reviewed and continue to provide symptomatic and supportive care We will repeat labs tomorrow, We will ask continuous pillowcase cutter to work on LTAC
--- NOTE | 2020-08-22 14:59 | PRG ---
DATE OF SERVICE: 08/22/2020 SUBJECTIVE: Mr. Abreu is back on high-flow oxygen. FiO2 is at 60, oximetry is in the mid 90s. Blood pressure 147/90, heart rate is 112, respiratory rates in the 20s. Unfortunately, Mr. Abreu does not get stronger each day, but gets weaker because he refused to get out of bed. OBJECTIVE: LUNGS: Remarkable for coarse equal breath sounds. HEART: Regular rhythm. ABDOMEN: Soft. LABORATORY DATA: White count 15.1, hemoglobin 14.3, platelets 156. Electrolytes remarkable only for BUN of 39, creatinine of 0.8, potassium is normal at 5. IMPRESSION: 1. Past COVID pneumonia. 2. Thromboembolic disease as result of the hypercoagulable state of COVID. 3. Weakness and deconditioning, which account for the majority of his respiratory difficulties. I discussed end of life issues with him. He quickly informed me that he was not ready to . We will continue with supportive care. He does not have any signs of muscle fatigue at this point in time, but I do not expect him to do well over the long haul. Job ID: [id number]
[2020-08-23 05:39] LABS: ALT (SGPT) 43 U/L (8-55); AST (SGOT) 37 U/L (5-34); Alkaline Phosphatase 170 U/L (40-110); Anion Gap 17 mmol/L (10-20); BUN (Urea Nitrogen) 44 mg/dL (8.4-25.7); Bilirubin, Total 0.9 mg/dL (0.2-1.2); CRP (Inflammatory) 2.47 mg/dL (= or < 0.5); Calc. Creatinine Clearance 120 mL/min (70-130); Calcium 9.4 mg/dL (7.8-10.44); Carbon Dioxide 22 mmol/L (23-31); Chloride 106 mmol/L (98-107); Globulin 3.9 g/dL (2.4-3.5); Glucose 80 mg/dL (80-115); Potassium 4.6 mmol/L (3.5-5.1); Protein, Total 6.9 g/dL (5.8-8.1); Sodium 140 mmol/L (136-145)
[2020-08-23 05:46] LABS: #Lymphocytes 1.6 thou/uL (1.20-3.40); #Monocytes 0.8 thou/uL (0.11-0.59); #Neutrophils 8.9 thou/uL (1.40-6.50); %Eosinophils 0.4 % (0.0-10.0); %Lymphocytes 14.3 % (21.0-51.0); %Monocytes 7.2 % (0.0-10.0); %Neutrophils 78.1 % (42.0-75.0); Hemoglobin 13.7 g/dL (14.0-18.0); MDiff Complete? YES; Mean Corpuscular HGB CONC 32.1 g/dL (32.0-36.0); Mean Corpuscular Hemoglobin 30.9 pg (27.0-31.0); Mean Corpuscular Volume 96.2 fL (78.0-98.0); Mean Platelet Volume 10.4 fL (7.4-10.4); Platelet Count 112 thou/uL (130-400); Platelet Morphology Comment Appears Decreased; Polychromasia SLIGHT = 2-3 cells (100X) (0-2/hpf); RBC Distribution Width 14.1 % (11.5-14.5); Red Blood Cell (RBC) Count 4.45 mill/uL (4.70-6.10); White Blood Cell (WBC) Count 11.3 thou/uL (4.8-10.8)
[2020-08-23] MEDS: HYDROcodone/Acetaminophen 5/325 mg Tablet PO PRN ×3 (06:18→16:30)
[2020-08-23] MEDS: Mometasone 100 MCG/Formoterol 5 MCG 120 PUFF INHALER INH SCH ×2 (07:11→18:38)
[2020-08-23] MEDS: Cholecalciferol 1,000 UNITS (25 MCG) TAB PO SCH (08:04)
[2020-08-23] MEDS: Pregabalin 75 MG CAP PO SCH ×3 (08:05→20:34)
[2020-08-23] MEDS: Dexamethasone 4 MG TAB PO SCH (08:06)
[2020-08-23] MEDS: ALPRAZolam 1 MG TAB PO SCH ×3 (08:06→20:35)
[2020-08-23] MEDS: buPROPion HCl 100 MG TAB PO SCH ×2 (08:06→20:34)
[2020-08-23] MEDS: Lidocaine 5% Patch TD SCH (08:07)
[2020-08-23] MEDS: Apixaban 5 MG TAB PO SCH ×2 (08:07→20:35)
[2020-08-23 08:17] LABS: INR-International Normal Ratio 1.4; PTT 34.7 sec (22.9-36.1); Prothrombin Time 17.6 sec (12.0-14.7)
[2020-08-23] MEDS: Polyethylene Glycol 3350 17 GM Packet PO SCH (09:42)
--- NOTE | 2020-08-23 12:06 | PDOC.HOSPP ---
- Subjective Encounter Date: 08/23/20 Encounter Time: 07:45 Subjective: Patient seen and examined. Patient is still tachypneic, he is requiring still high flow oxygen, he is physically very weak, he is also anxious - Objective Vital Signs & Weight: Vital Signs (12 hours) Temp Pulse Resp BP Pulse Ox 08/23/20 11:52 97.8 F 117 H 27 H 106/94 H 91 L 08/23/20 10:00 110 H 20 128/73 93 L 08/23/20 08:00 97.6 F 103 H 18 125/87 97 08/23/20 07:12 96 08/23/20 07:11 102 H 28 H 08/23/20 06:00 80 130/82 08/23/20 04:00 97.6 F 109 H 20 130/82 96 08/23/20 02:00 101 H 22 H 119/92 H 98 Weight Admit Weight 228 lb 6.4 oz Weight 206 lb 14.4 oz Most Recent Monitor Data Heart Rate from ECG 66 NIBP 102/75 NIBP BP-Mean 77 Respiration from ECG 29 SpO2 93 I&O: 08/22/20 08/23/20 08/24/20 06:59 06:59 06:59 Intake Total 485 950 120 Output Total 400 350 Balance 85 950 -230 Result Diagrams: 08/23/20 04:35 08/23/20 04:35 EKG Reviewed by me: Yes Hospitalist ROS - Review of Systems Constitutional: reports: weakness, malaise Eyes: denies: pain, vision change, conjunctivae inflammation, eyelid inflammation, redness, other ENT: denies: ear pain, ear discharge, nose pain, nose discharge, nose congestion, mouth pain, mouth swelling, throat pain, throat swelling, other Respiratory: reports: cough, shortness of breath, SOB with excertion. denies: dry, hemoptysis, pleuritic pain, sputum, wheezing, other Cardiovascular: denies: chest pain, palpitations, orthopnea, paroxysmal noc. dyspnea, edema, light headedness, other Gastrointestinal: denies: nausea, vomiting, abdominal pain, diarrhea, constipation, melena, hematochezia, other Genitourinary: denies: dysuria, frequency, incontinence, hematuria, retention, other Musculoskeletal: denies: neck pain, shoulder pain, arm pain, back pain, hand pain, leg pain, foot pain, other - Medication Medications: Active Medications Generic Name Dose Route Start Last Admin Trade Name Freq PRN Reason Stop Dose Admin Hydrocodone Bitart/Acetaminophen 1 tab 08/17/20 13:46 08/23/20 11:01 Hydrocodone/Acetaminophen 5/325 Mg Tablet PO 1 tab Q4H PRN Administration Moderate to Severe Pain (6-10) Alprazolam 1 mg 08/18/20 15:00 08/23/20 08:06 Alprazolam 1 Mg Tab PO 1 mg TID SAVANNA Administration Apixaban 5 mg 08/18/20 21:00 08/23/20 08:07 Apixaban 5 Mg Tab PO 5 mg BID SAVANNA Administration Bupropion HCl 200 mg 08/07/20 09:00 08/23/20 08:06 Bupropion Hcl 100 Mg Tab PO 200 mg BID SAVANNA Administration Cholecalciferol 2,000 units 08/07/20 09:00 08/23/20 08:04 Cholecalciferol 1,000 Units (25 Mcg) Tab PO 2,000 units DAILY SAVANNA Administration Dexamethasone 6 mg 08/21/20 09:00 08/23/20 08:06 Dexamethasone 4 Mg Tab PO 6 mg Q24HR SAVANNA Administration Lidocaine 1 patch 08/10/20 09:00 08/23/20 08:07 Lidocaine 5% Patch TD 1 patch 0900 SAVANNA Administration Miscellaneous Medication 1 each 08/09/20 21:00 08/22/20 21:00 Lidocaine Patch Removal 1 Each TOP 1 each 2100 SAVANNA Administration Mometasone Furoate/Formoterol Fumar 1 puff 08/07/20 06:30 08/23/20 07:11 Mometasone 100 Mcg/Formoterol 5 Mcg 120 Puff Inhaler INH 1 puff BID-RT SAVANNA Administration Morphine Sulfate 2 mg 08/17/20 18:35 08/21/20 02:06 Morphine 2 Mg/Ml Vial SLOW IVP 2 mg Q4H PRN Administration Moderate to Severe Pain (6-10) Pantoprazole Sodium 40 mg 08/07/20 09:00 08/23/20 08:05 Pantoprazole 40 Mg Tab PO 40 mg DAILY SAVANNA Administration Polyethylene Glycol 17 gm 08/07/20 09:00 08/23/20 09:42 Polyethylene Glycol 3350 17 Gm Packet PO Not Given DAILY SAVANNA Pregabalin 75 mg 08/07/20 09:00 08/23/20 08:05 Pregabalin 75 Mg Cap PO 75 mg TID SAVANNA Administration Sodium Chloride 10 ml 08/22/20 09:00 08/23/20 11:03 Flush - Normal Saline 10 Ml Syringe IVF 10 ml Q12HR SAVANNA Administration Hospitalist Exam Vitals: Vital Signs (12 hours) Temp Pulse Resp BP Pulse Ox 08/23/20 11:52 97.8 F 117 H 27 H 106/94 H 91 L 08/23/20 10:00 110 H 20 128/73 93 L 08/23/20 08:00 97.6 F 103 H 18 125/87 97 08/23/20 07:12 96 08/23/20 07:11 102 H 28 H 08/23/20 06:00 80 130/82 08/23/20 04:00 97.6 F 109 H 20 130/82 96 08/23/20 02:00 101 H 22 H 119/92 H 98 Weight Admit Weight 228 lb 6.4 oz Weight 206 lb 14.4 oz Most Recent Monitor Data Heart Rate from ECG 66 NIBP 102/75 NIBP BP-Mean 77 Respiration from ECG 29 SpO2 93 General Appearance: NAD, ill appearing Eye: PERRL, anicteric sclera ENT: normocephalic atraumatic, no oropharyngeal lesions Neck: supple, symmetric, no JVD, no thyromegaly Heart: RRR, no murmur, no gallops, no rubs Respiratory: no wheezes, no rales, no ronchi Gastrointestinal: soft, non-tender, non-distended, normal bowel sounds Extremities: no cyanosis, no clubbing, no edema Skin: normal turgor, no lesions Neurological: no focal deficits Musculoskeletal: normal tone, normal strength Psychiatric: normal affect, normal behavior Hosp A/P (1) Pneumonia due to COVID-19 virus Code(s): U07.1 - COVID-19; J12.82 - PNEUMONIA DUE TO CORONAVIRUS DISEASE 2019 Status: Acute (2) Acute respiratory failure with hypoxemia Code(s): J96.01 - ACUTE RESPIRATORY FAILURE WITH HYPOXIA Status: Acute (3) Bilateral pulmonary embolism Code(s): I26.99 - OTHER PULMONARY EMBOLISM WITHOUT ACUTE COR PULMONALE Status: Acute (4) Acute renal failure Status: Acute (5) Type 2 myocardial infarction Code(s): I21.A1 - MYOCARDIAL INFARCTION TYPE 2 Status: Acute (6) Anxiety Code(s): F41.9 - ANXIETY DISORDER, UNSPECIFIED Status: Acute (7) ADHD Status: Chronic (8) Hypertension Code(s): I10 - ESSENTIAL (PRIMARY) HYPERTENSION Status: Chronic - Plan old records reviewed/req, PT/OT, social services analyst Based on his physical deconditioning and requirement for high flow oxygen I do not see his discharge near time soon, I have spoken to mental health case manager about LTAC evaluation, Continue Eliquis 5 mg p.o. twice daily, Patient is on high flow oxygen, Continue PT OT as tolerated Medication reviewed and continue to provide symptomatic and supportive care
[2020-08-23 15:39] VITALS: BMI 28.0
--- NOTE | 2020-08-23 15:50 | PRG ---
DATE OF SERVICE: 08/23/2020 SUBJECTIVE: Russell Abreu is sitting in bed still. He has not . One good thing is that his FiO2 is down to 50% and his oximetry is 96%, so hopefully he is turning the corner. If we can get him to 40%, we may be able to switch him to a cannula. OBJECTIVE: VITAL SIGNS: Blood pressure 113/92, heart rate is 113, respiratory rate is 20. GENERAL: He actually looks better than he has looked the entire time I have seen this admission. LUNGS: Remarkable for distant breath sounds. HEART: Regular rhythm. ABDOMEN: Soft. IMPRESSION: 1. COVID pneumonia, not a clinical issue on presentation. 2. Pulmonary emboli on presentation, clinically resolving. 3. Extreme deconditioning secondary to the multiple problems he has faced recently. He is still not doing anything on his own. He has very severe anxiety and if he moves around and gets short of breath, he basically panics. We will continue supportive care. I will continue to monitor his vital signs in the computer system, but probably see him less frequently this weekend, so please call if his clinical condition deteriorates. Job ID: [id number]
[2020-08-23] MEDS: Transdermal Patch Removal TOP SCH (23:00)
[2020-08-24] MEDS: HYDROcodone/Acetaminophen 5/325 mg Tablet PO PRN ×2 (00:20→18:37)
[2020-08-24] MEDS: Mometasone 100 MCG/Formoterol 5 MCG 120 PUFF INHALER INH SCH ×2 (07:09→19:27)
[2020-08-24] MEDS: Pregabalin 75 MG CAP PO SCH ×3 (08:01→20:51)
[2020-08-24] MEDS: Dexamethasone 4 MG TAB PO SCH (08:01)
[2020-08-24] MEDS: buPROPion HCl 100 MG TAB PO SCH ×2 (08:01→20:51)
[2020-08-24] MEDS: Polyethylene Glycol 3350 17 GM Packet PO SCH (08:02)
[2020-08-24] MEDS: Cholecalciferol 1,000 UNITS (25 MCG) TAB PO SCH (08:02)
[2020-08-24] MEDS: Lidocaine 5% Patch TD SCH (08:02)
[2020-08-24] MEDS: Apixaban 5 MG TAB PO SCH ×2 (08:02→20:51)
[2020-08-24] MEDS: ALPRAZolam 1 MG TAB PO SCH ×3 (08:02→20:51)
--- NOTE | 2020-08-24 11:59 | PDOC.HOSPP ---
- Subjective Encounter Date: 08/24/20 Encounter Time: 08:00 Subjective: Patient seen and examined bedside today, patient has no overall change in his condition, he is requiring high flow oxygen, he has no fever, he is still very physically weak, - Objective Vital Signs & Weight: Vital Signs (12 hours) Temp Pulse Resp BP BP Pulse Ox Pulse Ox 08/24/20 10:02 117/90 94 L 08/24/20 08:15 97.7 F 109 H 34 H 161/93 H 88 L 08/24/20 08:07 109 H 24 H 115/79 94 L 08/24/20 07:10 90 L 08/24/20 07:09 102 H 25 H 96 08/24/20 06:00 109 H 24 H 119/77 97 08/24/20 04:00 96.8 F L 101 H 22 H 123/92 H 98 08/24/20 02:00 101 H 20 125/86 97 Pulse Ox 08/24/20 10:02 98 08/24/20 08:15 08/24/20 08:07 08/24/20 07:10 08/24/20 07:09 08/24/20 06:00 08/24/20 04:00 08/24/20 02:00 Weight Admit Weight 228 lb 6.4 oz Weight 206 lb 14.4 oz Most Recent Monitor Data Heart Rate from ECG 66 NIBP 102/75 NIBP BP-Mean 77 Respiration from ECG 29 SpO2 93 I&O: 08/23/20 08/24/20 08/25/20 06:59 06:59 06:59 Intake Total 950 300 Output Total 875 Balance 950 -575 Result Diagrams: 08/23/20 04:35 08/23/20 04:35 EKG Reviewed by me: Yes Hospitalist ROS - Review of Systems Constitutional: reports: weakness, malaise. denies: fever, chills, sweats, other Respiratory: reports: cough, shortness of breath, SOB with excertion. denies: dry, hemoptysis, pleuritic pain, sputum, wheezing, other Cardiovascular: denies: chest pain, palpitations, orthopnea, paroxysmal noc. dyspnea, edema, light headedness, other Gastrointestinal: denies: nausea, vomiting, abdominal pain, diarrhea, constipation, melena, hematochezia, other Genitourinary: denies: dysuria, frequency, incontinence, hematuria, retention, other Musculoskeletal: denies: neck pain, shoulder pain, arm pain, back pain, hand pain, leg pain, foot pain, other - Medication Medications: Active Medications Generic Name Dose Route Start Last Admin Trade Name Freq PRN Reason Stop Dose Admin Hydrocodone Bitart/Acetaminophen 1 tab 08/17/20 13:46 08/24/20 00:20 Hydrocodone/Acetaminophen 5/325 Mg Tablet PO 1 tab Q4H PRN Administration Moderate to Severe Pain (6-10) Alprazolam 1 mg 08/18/20 15:00 08/24/20 08:02 Alprazolam 1 Mg Tab PO 1 mg TID SAVANNA Administration Apixaban 5 mg 08/18/20 21:00 08/24/20 08:02 Apixaban 5 Mg Tab PO 5 mg BID SAVANNA Administration Bupropion HCl 200 mg 08/07/20 09:00 08/24/20 08:01 Bupropion Hcl 100 Mg Tab PO 200 mg BID SAVANNA Administration Cholecalciferol 2,000 units 08/07/20 09:00 08/24/20 08:02 Cholecalciferol 1,000 Units (25 Mcg) Tab PO 2,000 units DAILY SAVANNA Administration Dexamethasone 6 mg 08/21/20 09:00 08/24/20 08:01 Dexamethasone 4 Mg Tab PO 6 mg Q24HR SAVANNA Administration Lidocaine 1 patch 08/10/20 09:00 08/24/20 08:02 Lidocaine 5% Patch TD 1 patch 0900 SAVANNA Administration Miscellaneous Medication 1 each 08/09/20 21:00 08/23/20 23:00 Lidocaine Patch Removal 1 Each TOP 1 each 2100 SAVANNA Administration Mometasone Furoate/Formoterol Fumar 1 puff 08/07/20 06:30 08/24/20 07:09 Mometasone 100 Mcg/Formoterol 5 Mcg 120 Puff Inhaler INH 1 puff BID-RT SAVANNA Administration Morphine Sulfate 2 mg 08/17/20 18:35 08/21/20 02:06 Morphine 2 Mg/Ml Vial SLOW IVP 2 mg Q4H PRN Administration Moderate to Severe Pain (6-10) Pantoprazole Sodium 40 mg 08/07/20 09:00 08/24/20 08:02 Pantoprazole 40 Mg Tab PO 40 mg DAILY SAVANNA Administration Polyethylene Glycol 17 gm 08/07/20 09:00 08/24/20 08:02 Polyethylene Glycol 3350 17 Gm Packet PO 17 gm DAILY SAVANNA Administration Pregabalin 75 mg 08/07/20 09:00 08/24/20 08:01 Pregabalin 75 Mg Cap PO 75 mg TID SAVANNA Administration Sodium Chloride 10 ml 08/22/20 09:00 08/24/20 08:02 Flush - Normal Saline 10 Ml Syringe IVF 10 ml Q12HR SAVANNA Administration Hospitalist Exam Vitals: Vital Signs (12 hours) Temp Pulse Resp BP BP Pulse Ox Pulse Ox 08/24/20 10:02 117/90 94 L 08/24/20 08:15 97.7 F 109 H 34 H 161/93 H 88 L 08/24/20 08:07 109 H 24 H 115/79 94 L 08/24/20 07:10 90 L 08/24/20 07:09 102 H 25 H 96 08/24/20 06:00 109 H 24 H 119/77 97 08/24/20 04:00 96.8 F L 101 H 22 H 123/92 H 98 08/24/20 02:00 101 H 20 125/86 97 Pulse Ox 08/24/20 10:02 98 08/24/20 08:15 08/24/20 08:07 08/24/20 07:10 08/24/20 07:09 08/24/20 06:00 08/24/20 04:00 08/24/20 02:00 Weight Admit Weight 228 lb 6.4 oz Weight 206 lb 14.4 oz Most Recent Monitor Data Heart Rate from ECG 66 NIBP 102/75 NIBP BP-Mean 77 Respiration from ECG 29 SpO2 93 General Appearance: NAD, ill appearing Eye: PERRL, anicteric sclera ENT: normocephalic atraumatic, no oropharyngeal lesions Neck: supple, symmetric, no JVD Heart: no murmur, no gallops, no rubs Respiratory: no wheezes, no rales, no ronchi Respiratory - other findings: Air entry reduced Gastrointestinal: soft, non-tender, non-distended, normal bowel sounds Extremities: no clubbing, no edema Skin: normal turgor, no lesions Neurological: no focal deficits Musculoskeletal: normal tone, normal strength Psychiatric: normal affect, normal behavior Hosp A/P (1) Acute respiratory failure with hypoxemia Code(s): J96.01 - ACUTE RESPIRATORY FAILURE WITH HYPOXIA Status: Acute (2) Pneumonia due to COVID-19 virus Code(s): U07.1 - COVID-19; J12.82 - PNEUMONIA DUE TO CORONAVIRUS DISEASE 2018 Status: Acute (3) Bilateral pulmonary embolism Code(s): I26.99 - OTHER PULMONARY EMBOLISM WITHOUT ACUTE COR PULMONALE Status: Acute (4) Acute renal failure Status: Resolved (5) Type 2 myocardial infarction Code(s): I21.A1 - MYOCARDIAL INFARCTION TYPE 2 Status: Acute (6) Anxiety Code(s): F41.9 - ANXIETY DISORDER, UNSPECIFIED Status: Chronic (7) ADHD Status: Chronic (8) Hypertension Code(s): I10 - ESSENTIAL (PRIMARY) HYPERTENSION Status: Chronic - Plan old records reviewed/req, PT/OT, nephrology social worker Will reduce dexamethasone to 4 mg daily, Continue Eliquis 5 mg twice daily Patient is on high flow oxygen We will repeat labs tomorrow Continue PT OT and nutritional support, Patient is not ready for discharge, he will need placement upon discharge
--- NOTE | 2020-08-24 12:29 | PRG ---
DATE OF SERVICE: 08/24/2020 OBJECTIVE: VITAL SIGNS: Russell Abreu is afebrile. Heart rate is 109, respiratory rates in the 20s to low 30s, oximetry is fluctuating between 88 and 94, blood pressure 161/93 earlier this morning. Exam is unchanged. IMPRESSION: 1. Muscle weakness. 2. Post-COVID inflammatory changes. 3. Thromboembolic disease, on Eliquis. 4. Severe anxiety. 5. Extreme deconditioning. We will be available as needed over the weekend. Job ID: [id number]
[2020-08-25] MEDS: Transdermal Patch Removal TOP SCH ×2 (00:40→21:00)
[2020-08-25] MEDS: HYDROcodone/Acetaminophen 5/325 mg Tablet PO PRN ×3 (01:20→18:46)
[2020-08-25 05:11] LABS: Anion Gap 14 mmol/L (10-20); BUN (Urea Nitrogen) 40 mg/dL (8.4-25.7); CRP (Inflammatory) 1.22 mg/dL (= or < 0.5); Calc. Creatinine Clearance 130 mL/min (70-130); Calcium 9.4 mg/dL (7.8-10.44); Carbon Dioxide 25 mmol/L (23-31); Chloride 106 mmol/L (98-107); Glucose 78 mg/dL (80-115); Potassium 4.4 mmol/L (3.5-5.1); Sodium 141 mmol/L (136-145)
[2020-08-25 05:16] LABS: #Eosinphils 0.1 thou/uL (0.0-0.7); #Lymphocytes 1.5 thou/uL (1.20-3.40); #Neutrophils 11.4 thou/uL (1.40-6.50); %Basophils 0.3 % (0.0-1.0); %Eosinophils 0.4 % (0.0-10.0); %Lymphocytes 10.7 % (21.0-51.0); %Monocytes 7.1 % (0.0-10.0); %Neutrophils 81.5 % (42.0-75.0); Mean Corpuscular HGB CONC 32.5 g/dL (32.0-36.0); Mean Corpuscular Hemoglobin 31.7 pg (27.0-31.0); Mean Corpuscular Volume 97.5 fL (78.0-98.0); Mean Platelet Volume 10.8 fL (7.4-10.4); Platelet Count 99 thou/uL (130-400); Red Blood Cell (RBC) Count 4.41 mill/uL (4.70-6.10)
[2020-08-25] MEDS: Mometasone 100 MCG/Formoterol 5 MCG 120 PUFF INHALER INH SCH ×2 (07:38→19:18)
[2020-08-25] MEDS: buPROPion HCl 100 MG TAB PO SCH ×2 (08:04→20:58)
[2020-08-25] MEDS: Lidocaine 5% Patch TD SCH (08:04)
[2020-08-25] MEDS: ALPRAZolam 1 MG TAB PO SCH ×3 (08:04→20:58)
[2020-08-25] MEDS: Cholecalciferol 1,000 UNITS (25 MCG) TAB PO SCH (08:05)
[2020-08-25] MEDS: Dexamethasone 4 MG TAB PO SCH (08:05)
[2020-08-25] MEDS: Pregabalin 75 MG CAP PO SCH ×3 (08:05→20:58)
[2020-08-25] MEDS: Apixaban 5 MG TAB PO SCH ×2 (08:05→20:59)
[2020-08-25] MEDS: Polyethylene Glycol 3350 17 GM Packet PO SCH (08:06)
[2020-08-25] MEDS: Acetaminophen 325 MG TAB PO PRN (10:00)
--- NOTE | 2020-08-25 10:59 | PDOC.HOSPP ---
- Subjective Encounter Date: 08/25/20 Encounter Time: 07:40 Subjective: Patient seen and examined. Patient prefers medication crushed and given in liquid form, no overnight events - Objective Vital Signs & Weight: Vital Signs (12 hours) Temp Pulse Resp BP Pulse Ox 08/25/20 10:39 82 L 08/25/20 08:00 94 L 08/25/20 07:42 97.6 F 105 H 20 113/77 90 L 08/25/20 07:39 95 08/25/20 07:38 106 H 20 93 L 08/25/20 06:00 95 22 H 117/85 94 L 08/25/20 04:00 97.3 F L 87 22 H 117/84 97 08/25/20 02:00 98 20 114/82 98 08/25/20 00:00 97.8 F 105 H 22 H 118/84 97 Weight Admit Weight 228 lb 6.4 oz Weight 206 lb 14.4 oz Most Recent Monitor Data Heart Rate from ECG 66 NIBP 102/75 NIBP BP-Mean 77 Respiration from ECG 29 SpO2 93 I&O: 08/24/20 08/25/20 08/26/20 06:59 06:59 06:59 Intake Total 300 450 Output Total 875 650 Balance -575 -200 Result Diagrams: 08/25/20 04:07 08/25/20 04:07 EKG Reviewed by me: Yes Hospitalist ROS - Review of Systems Constitutional: reports: weakness, malaise. denies: fever, chills, sweats, other Respiratory: reports: cough, shortness of breath, SOB with excertion. denies: dry, hemoptysis, pleuritic pain, sputum, wheezing, other Cardiovascular: denies: chest pain, palpitations, orthopnea, paroxysmal noc. dyspnea, edema, light headedness, other Gastrointestinal: denies: nausea, vomiting, abdominal pain, diarrhea, co nstipation, melena, hematochezia, other Genitourinary: denies: dysuria, frequency, incontinence, hematuria, retention, other Musculoskeletal: denies: neck pain, shoulder pain, arm pain, back pain, hand pain, leg pain, foot pain, other - Medication Medications: Active Medications Generic Name Dose Route Start Last Admin Trade Name Freq PRN Reason Stop Dose Admin Acetaminophen 650 mg 08/07/20 04:00 08/25/20 10:00 Acetaminophen 325 Mg Tab PO 650 mg Q4H PRN Administration Headache/Fever/Mild Pain (1-3) Hydrocodone Bitart/Acetaminophen 1 tab 08/17/20 13:46 08/25/20 05:35 Hydrocodone/Acetaminophen 5/325 Mg Tablet PO 1 tab Q4H PRN Administration Moderate to Severe Pain (6-10) Alprazolam 1 mg 08/18/20 15:00 08/25/20 08:04 Alprazolam 1 Mg Tab PO 1 mg TID SAVANNA Administration Apixaban 5 mg 08/18/20 21:00 08/25/20 08:05 Apixaban 5 Mg Tab PO 5 mg BID SAVANNA Administration Bupropion HCl 200 mg 08/07/20 09:00 08/25/20 08:04 Bupropion Hcl 100 Mg Tab PO 200 mg BID SAVANNA Administration Cholecalciferol 2,000 units 08/07/20 09:00 08/25/20 08:05 Cholecalciferol 1,000 Units (25 Mcg) Tab PO 2,000 units DAILY SAVANNA Administration Dexamethasone 4 mg 08/25/20 09:00 08/25/20 08:05 Dexamethasone 4 Mg Tab PO 4 mg DAILY SAVANNA Administration Lidocaine 1 patch 08/10/20 09:00 08/25/20 08:04 Lidocaine 5% Patch TD 1 patch 0900 SAVANNA Administration Miscellaneous Medication 1 each 08/09/20 21:00 08/25/20 00:40 Lidocaine Patch Removal 1 Each TOP 1 each 2100 SAVANNA Administration Mometasone Furoate/Formoterol Fumar 1 puff 08/07/20 06:30 08/25/20 07:38 Mometasone 100 Mcg/Formoterol 5 Mcg 120 Puff Inhaler INH 1 puff BID-RT SAVANNA Administration Morphine Sulfate 2 mg 08/17/20 18:35 08/21/20 02:06 Morphine 2 Mg/Ml Vial SLOW IVP 2 mg Q4H PRN Administration Moderate to Severe Pain (6-10) Pantoprazole Sodium 40 mg 08/07/20 09:00 08/25/20 08:05 Pantoprazole 40 Mg Tab PO 40 mg DAILY SAVANNA Administration Polyethylene Glycol 17 gm 08/07/20 09:00 08/25/20 08:06 Polyethylene Glycol 3350 17 Gm Packet PO Not Given DAILY SAVANNA Pregabalin 75 mg 08/07/20 09:00 08/25/20 08:05 Pregabalin 75 Mg Cap PO 75 mg TID SAVANNA Administration Sodium Chloride 10 ml 08/22/20 09:00 08/25/20 08:04 Flush - Normal Saline 10 Ml Syringe IVF 10 ml Q12HR SAVANNA Administration Hospitalist Exam Vitals: Vital Signs (12 hours) Temp Pulse Resp BP Pulse Ox 08/25/20 10:39 82 L 08/25/20 08:00 94 L 08/25/20 07:42 97.6 F 105 H 20 113/77 90 L 08/25/20 07:39 95 08/25/20 07:38 106 H 20 93 L 08/25/20 06:00 95 22 H 117/85 94 L 08/25/20 04:00 97.3 F L 87 22 H 117/84 97 08/25/20 02:00 98 20 114/82 98 08/25/20 00:00 97.8 F 105 H 22 H 118/84 97 Weight Admit Weight 228 lb 6.4 oz Weight 206 lb 14.4 oz Most Recent Monitor Data Heart Rate from ECG 66 NIBP 102/75 NIBP BP-Mean 77 Respiration from ECG 29 SpO2 93 General Appearance: NAD, ill appearing Eye: PERRL, anicteric sclera ENT: normocephalic atraumatic, no oropharyngeal lesions Neck: supple, symmetric, no JVD, no thyromegaly Heart: RRR, no murmur, no gallops, no rubs Respiratory - other findings: Reduced air entry at base but no obvious rhonchi or rales anteriorly Gastrointestinal: soft, non-tender, non-distended, normal bowel sounds Extremities: no clubbing, no edema Skin: normal turgor, no lesions Neurological: no focal deficits Musculoskeletal: normal tone, normal strength Psychiatric: normal affect, normal behavior Hosp A/P (1) Acute respiratory failure with hypoxemia Code(s): J96.01 - ACUTE RESPIRATORY FAILURE WITH HYPOXIA Status: Acute (2) Pneumonia due to COVID-19 virus Code(s): U07.1 - COVID-19; J12.82 - PNEUMONIA DUE TO CORONAVIRUS DISEASE 2019 Status: Acute (3) Bilateral pulmonary embolism Code(s): I26.99 - OTHER PULMONARY EMBOLISM WITHOUT ACUTE COR PULMONALE Status: Acute (4) Acute renal failure Status: Resolved (5) Type 2 myocardial infarction Code(s): I21.A1 - MYOCARDIAL INFARCTION TYPE 2 Status: Acute (6) Anxiety Code(s): F41.9 - ANXIETY DISORDER, UNSPECIFIED Status: Chronic (7) ADHD Status: Chronic (8) Hypertension Code(s): I10 - ESSENTIAL (PRIMARY) HYPERTENSION Status: Chronic - Plan old records reviewed/req, PT/OT, respiratory therapy Continue dexamethasone 4 mg daily, Continue Eliquis 5 mg twice daily Nutritional support Continue PT OT Medication reviewed and continued per symptomatic and supportive care Discharge planning to LTAC/rehab
[2020-08-26] MEDS: HYDROcodone/Acetaminophen 5/325 mg Tablet PO PRN ×5 (00:09→23:30)
[2020-08-26] MEDS: Mometasone 100 MCG/Formoterol 5 MCG 120 PUFF INHALER INH SCH ×2 (08:28→19:29)
[2020-08-26] MEDS: Polyethylene Glycol 3350 17 GM Packet PO SCH (08:31)
[2020-08-26] MEDS: Apixaban 5 MG TAB PO SCH ×2 (08:31→21:31)
[2020-08-26] MEDS: ALPRAZolam 1 MG TAB PO SCH ×3 (08:31→21:31)
[2020-08-26] MEDS: Cholecalciferol 1,000 UNITS (25 MCG) TAB PO SCH (08:31)
[2020-08-26] MEDS: Pregabalin 75 MG CAP PO SCH ×3 (08:31→21:31)
[2020-08-26] MEDS: Lidocaine 5% Patch TD SCH (08:31)
[2020-08-26] MEDS: buPROPion HCl 100 MG TAB PO SCH ×2 (08:31→21:31)
[2020-08-26] MEDS: Dexamethasone 4 MG TAB PO SCH (08:32)
--- NOTE | 2020-08-26 09:59 | PDOC.HOSPP ---
- Subjective Encounter Date: 08/26/20 Encounter Time: 07:30 Subjective: Patient seen and examined. No new complaints. No overnight events, patient is still very weak and he is on high flow oxygen - Objective Vital Signs & Weight: Vital Signs (12 hours) Temp Pulse Resp BP Pulse Ox 08/26/20 08:29 91 L 08/26/20 08:28 109 H 20 91 L 08/26/20 08:00 97.7 F 106 H 20 100/80 97 08/26/20 06:00 105 H 24 H 111/76 97 08/26/20 04:00 98.1 F 105 H 20 121/78 98 08/26/20 02:00 106 H 20 143/74 H 96 08/26/20 00:00 98 F 111 H 22 H 115/82 96 08/25/20 22:00 106 H 18 120/74 98 Weight Admit Weight 228 lb 6.4 oz Weight 206 lb 14.4 oz Most Recent Monitor Data Heart Rate from ECG 66 NIBP 102/75 NIBP BP-Mean 77 Respiration from ECG 29 SpO2 93 I&O: 08/25/20 08/26/20 08/27/20 06:59 06:59 06:59 Intake Total 450 980 Output Total 650 550 Balance -200 430 Result Diagrams: 08/25/20 04:07 08/25/20 04:07 Hospitalist ROS - Review of Systems Constitutional: reports: weakness, malaise. denies: fever, chills, sweats, other Respiratory: reports: cough, shortness of breath, SOB with excertion. denies: dry, hemoptysis, pleuritic pain, sputum, wheezing, other Cardiovascular: denies: chest pain, palpitations, orthopnea, paroxysmal noc. dyspnea, edema, light headedness, other Gastrointestinal: denies: nausea, vomiting, abdominal pain, diarrhea, constipation, melena, hematochezia, other Genitourinary: denies: dysuria, frequency, incontinence, hematuria, retention, other Musculoskeletal: denies: neck pain, shoulder pain, arm pain, back pain, hand pain, leg pain, foot pain, other - Medication Medications: Active Medications Generic Name Dose Route Start Last Admin Trade Name Freq PRN Reason Stop Dose Admin Acetaminophen 650 mg 08/07/20 04:00 08/25/20 10:00 Acetaminophen 325 Mg Tab PO 650 mg Q4H PRN Administration Headache/Fever/Mild Pain (1-3) Hydrocodone Bitart/Acetaminophen 1 tab 08/17/20 13:46 08/26/20 05:01 Hydrocodone/Acetaminophen 5/325 Mg Tablet PO 1 tab Q4H PRN Administration Moderate to Severe Pain (6-10) Alprazolam 1 mg 08/18/20 15:00 08/26/20 08:31 Alprazolam 1 Mg Tab PO 1 mg TID SAVANNA Administration Apixaban 5 mg 08/18/20 21:00 08/26/20 08:31 Apixaban 5 Mg Tab PO 5 mg BID SAVANNA Administration Bupropion HCl 200 mg 08/07/20 09:00 08/26/20 08:31 Bupropion Hcl 100 Mg Tab PO 200 mg BID SAVANNA Administration Cholecalciferol 2,000 units 08/07/20 09:00 08/26/20 08:31 Cholecalciferol 1,000 Units (25 Mcg) Tab PO 2,000 units DAILY SAVANNA Administration Dexamethasone 4 mg 08/25/20 09:00 08/26/20 08:32 Dexamethasone 4 Mg Tab PO 4 mg DAILY SAVANNA Administration Lidocaine 1 patch 08/10/20 09:00 08/26/20 08:31 Lidocaine 5% Patch TD 1 patch 0900 SAVANNA Administration Miscellaneous Medication 1 each 08/09/20 21:00 08/25/20 21:00 Lidocaine Patch Removal 1 Each TOP 1 each 2100 SAVANNA Administration Mometasone Furoate/Formoterol Fumar 1 puff 08/07/20 06:30 08/26/20 08:28 Mometasone 100 Mcg/Formoterol 5 Mcg 120 Puff Inhaler INH 1 puff BID-RT SAVANNA Administration Morphine Sulfate 2 mg 08/17/20 18:35 08/21/20 02:06 Morphine 2 Mg/Ml Vial SLOW IVP 2 mg Q4H PRN Administration Moderate to Severe Pain (6-10) Pantoprazole Sodium 40 mg 08/07/20 09:00 08/26/20 08:31 Pantoprazole 40 Mg Tab PO 40 mg DAILY SAVANNA Administration Polyethylene Glycol 17 gm 08/07/20 09:00 08/26/20 08:31 Polyethylene Glycol 3350 17 Gm Packet PO 17 gm DAILY SAVANNA Administration Pregabalin 75 mg 08/07/20 09:00 08/26/20 08:31 Pregabalin 75 Mg Cap PO 75 mg TID SAVANNA Administration Sodium Chloride 10 ml 08/22/20 09:00 08/26/20 08:32 Flush - Normal Saline 10 Ml Syringe IVF 10 ml Q12HR SAVANNA Administration Hospitalist Exam Vitals: Vital Signs (12 hours) Temp Pulse Resp BP Pulse Ox 08/26/20 08:29 91 L 08/26/20 08:28 109 H 20 91 L 08/26/20 08:00 97.7 F 106 H 20 100/80 97 08/26/20 06:00 105 H 24 H 111/76 97 08/26/20 04:00 98.1 F 105 H 20 121/78 98 08/26/20 02:00 106 H 20 143/74 H 96 08/26/20 00:00 98 F 111 H 22 H 115/82 96 08/25/20 22:00 106 H 18 120/74 98 Weight Admit Weight 228 lb 6.4 oz Weight 206 lb 14.4 oz Most Recent Monitor Data Heart Rate from ECG 66 NIBP 102/75 NIBP BP-Mean 77 Respiration from ECG 29 SpO2 93 General Appearance: NAD, awake alert Eye: PERRL, anicteric sclera ENT: normocephalic atraumatic, no oropharyngeal lesions Neck: supple, symmetric, no JVD, no thyromegaly Heart: no murmur, no gallops, no rubs Respiratory: no wheezes, no rales, no ronchi Gastrointestinal: soft, non-tender, non-distended, normal bowel sounds Extremities: no clubbing, no edema Skin: normal turgor, no lesions Neurological: no focal deficits Musculoskeletal: normal tone, normal strength Psychiatric: normal affect, normal behavior Hosp A/P (1) Acute respiratory failure with hypoxemia Code(s): J96.01 - ACUTE RESPIRATORY FAILURE WITH HYPOXIA Status: Acute (2) Pneumonia due to COVID-19 virus Code(s): U07.1 - COVID-19; J12.82 - PNEUMONIA DUE TO CORONAVIRUS DISEASE 2019 Status: Acute (3) Bilateral pulmonary embolism Code(s): I26.99 - OTHER PULMONARY EMBOLISM WITHOUT ACUTE COR PULMONALE Status: Acute (4) Acute renal failure Status: Resolved (5) Type 2 myocardial infarction Code(s): I21.A1 - MYOCARDIAL INFARCTION TYPE 2 Status: Acute (6) Anxiety Code(s): F41.9 - ANXIETY DISORDER, UNSPECIFIED Status: Chronic (7) ADHD Status: Chronic (8) Hypertension Code(s): I10 - ESSENTIAL (PRIMARY) HYPERTENSION Status: Chronic - Plan old records reviewed/req, PT/OT, social insurance administrator Based on his weakness and the requirement for oxygen for a long period of time, I doubt this patient will recover very fast, he will benefit from LTAC evaluation, social work working on that, I have reviewed his medication and continue provide symptomatic and supportive care,
[2020-08-26] MEDS: Transdermal Patch Removal TOP SCH (21:32)
[2020-08-27] MEDS: Mometasone 100 MCG/Formoterol 5 MCG 120 PUFF INHALER INH SCH ×2 (07:25→19:31)
[2020-08-27] MEDS: Cholecalciferol 1,000 UNITS (25 MCG) TAB PO SCH (16:09)
[2020-08-27] MEDS: ALPRAZolam 1 MG TAB PO SCH ×2 (16:09→21:18)
[2020-08-27] MEDS: buPROPion HCl 100 MG TAB PO SCH ×2 (16:10→21:19)
[2020-08-27] MEDS: Dexamethasone 4 MG TAB PO SCH (16:10)
[2020-08-27] MEDS: Polyethylene Glycol 3350 17 GM Packet PO SCH (16:11)
[2020-08-27] MEDS: Lidocaine 5% Patch TD SCH (16:11)
[2020-08-27] MEDS: Apixaban 5 MG TAB PO SCH ×2 (16:11→21:16)
[2020-08-27] MEDS: Pregabalin 75 MG CAP PO SCH ×2 (16:12→21:16)
[2020-08-27] MEDS: Morphine 2 MG/ML VIAL SLOW IVP PRN (17:10)
[2020-08-27] MEDS: Melatonin 3 MG TAB PO PRN (21:18)
[2020-08-27] MEDS ORDERED: traMADol HCl 50 MG TAB PO PRN (21:57)
[2020-08-27] MEDS: Transdermal Patch Removal TOP SCH (22:42)
[2020-08-27] MEDS: Acetaminophen 325 MG TAB PO PRN (23:11)
[2020-08-27] MEDS: traMADol HCl 50 MG TAB PO PRN (23:12)
[2020-08-28 06:59] LABS: ALT (SGPT) 68 U/L (8-55); AST (SGOT) 47 U/L (5-34); Alkaline Phosphatase 200 U/L (40-110); Anion Gap 14 mmol/L (10-20); BUN (Urea Nitrogen) 37 mg/dL (8.4-25.7); Bilirubin, Total 1.3 mg/dL (0.2-1.2); Calc. Creatinine Clearance 127 mL/min (70-130); Calcium 9.2 mg/dL (7.8-10.44); Carbon Dioxide 24 mmol/L (23-31); Chloride 105 mmol/L (98-107); Globulin 3.8 g/dL (2.4-3.5); Glucose 94 mg/dL (80-115); Potassium 4.4 mmol/L (3.5-5.1); Protein, Total 6.8 g/dL (5.8-8.1); Sodium 139 mmol/L (136-145)
[2020-08-28 07:06] LABS: #Lymphocytes 1.8 thou/uL (1.20-3.40); #Monocytes 0.6 thou/uL (0.11-0.59); #Neutrophils 12.4 thou/uL (1.40-6.50); %Basophils 0.3 % (0.0-1.0); %Eosinophils 0.2 % (0.0-10.0); %Lymphocytes 12.3 % (21.0-51.0); %Monocytes 4.3 % (0.0-10.0); Hemoglobin 14.7 g/dL (14.0-18.0); Mean Corpuscular HGB CONC 31.4 g/dL (32.0-36.0); Mean Corpuscular Hemoglobin 30.3 pg (27.0-31.0); Mean Corpuscular Volume 96.6 fL (78.0-98.0); Mean Platelet Volume 10.9 fL (7.4-10.4); Platelet Count 92 thou/uL (130-400); RBC Distribution Width 14.2 % (11.5-14.5); Red Blood Cell (RBC) Count 4.86 mill/uL (4.70-6.10)
[2020-08-28] MEDS: Mometasone 100 MCG/Formoterol 5 MCG 120 PUFF INHALER INH SCH ×2 (07:14→18:34)
[2020-08-28] MEDS: Pregabalin 75 MG CAP PO SCH ×3 (08:49→21:51)
[2020-08-28] MEDS: Cholecalciferol 1,000 UNITS (25 MCG) TAB PO SCH (08:49)
[2020-08-28] MEDS: Lidocaine 5% Patch TD SCH (08:49)
[2020-08-28] MEDS: Dexamethasone 4 MG TAB PO SCH (08:50)
[2020-08-28] MEDS: Apixaban 5 MG TAB PO SCH ×2 (08:50→21:51)
[2020-08-28] MEDS: ALPRAZolam 1 MG TAB PO SCH ×2 (08:50→14:56)
[2020-08-28] MEDS: buPROPion HCl 100 MG TAB PO SCH ×2 (08:50→21:51)
[2020-08-28] MEDS: Polyethylene Glycol 3350 17 GM Packet PO SCH (08:51)
--- NOTE | 2020-08-28 11:28 | PDOC.HOSPP ---
- Subjective Encounter Date: 08/28/20 Encounter Time: 09:40 Subjective: Patient seen and examined. No new complaints. No overnight events - Objective Vital Signs & Weight: Vital Signs (12 hours) Temp Pulse Resp BP Pulse Ox 08/28/20 07:32 99 08/28/20 07:17 98 08/28/20 07:14 108 H 20 97 08/28/20 05:45 102 H 21 H 120/92 H 96 08/28/20 04:00 97.5 F L 105 H 22 H 111/97 H 96 08/28/20 02:00 103 H 21 H 121/87 96 08/28/20 00:00 97.7 F 108 H 21 H 114/92 H 95 Weight Admit Weight 228 lb 6.4 oz Weight 206 lb 14.4 oz Most Recent Monitor Data Heart Rate from ECG 66 NIBP 102/75 NIBP BP-Mean 77 Respiration from ECG 29 SpO2 93 I&O: 08/27/20 08/28/20 08/29/20 06:59 06:59 06:59 Intake Total 480 1200 Balance 480 1200 Result Diagrams: 08/28/20 06:19 08/28/20 06:19 EKG Reviewed by me: Yes Hospitalist ROS - Review of Systems Constitutional: reports: weakness, malaise. denies: fever, chills, sweats, other Respiratory: reports: shortness of breath, SOB with excertion. denies: cough, dry, hemoptysis, pleuritic pain, sputum, wheezing, other Cardiovascular: denies: chest pain, palpitations, orthopnea, paroxysmal noc. dyspnea, edema, light headedness, other Gastrointestinal: denies: nausea, vomiting, abdominal pain, diarrhea, constipation, melena, hematochezia, other Genitourinary: denies: dysuria, frequency, incontinence, hematuria, retention, other Musculoskeletal: denies: neck pain, shoulder pain, arm pain, back pain, hand pain, leg pain, foot pain, other - Medication Medications: Active Medications Generic Name Dose Route Start Last Admin Trade Name Freq PRN Reason Stop Dose Admin Acetaminophen 650 mg 08/07/20 04:00 08/27/20 23:11 Acetaminophen 325 Mg Tab PO 650 mg Q4H PRN Administration Headache/Fever/Mild Pain (1-3) Alprazolam 1 mg 08/18/20 15:00 08/28/20 08:50 Alprazolam 1 Mg Tab PO 1 mg TID SAVANNA Administration Apixaban 5 mg 08/18/20 21:00 08/28/20 08:50 Apixaban 5 Mg Tab PO 5 mg BID SAVANNA Administration Bupropion HCl 200 mg 08/07/20 09:00 08/28/20 08:50 Bupropion Hcl 100 Mg Tab PO 200 mg BID SAVANNA Administration Cholecalciferol 2,000 units 08/07/20 09:00 08/28/20 08:49 Cholecalciferol 1,000 Units (25 Mcg) Tab PO 2,000 units DAILY SAVANNA Administration Dexamethasone 4 mg 08/25/20 09:00 08/28/20 08:50 Dexamethasone 4 Mg Tab PO 4 mg DAILY SAVANNA Administration Lidocaine 1 patch 08/10/20 09:00 08/28/20 08:49 Lidocaine 5% Patch TD 1 patch 0900 SAVANNA Administration Melatonin 3 mg 08/22/20 07:51 08/27/20 21:18 Melatonin 3 Mg Tab PO 3 mg HS PRN Administration Insomnia Miscellaneous Medication 1 each 08/09/20 21:00 08/27/20 22:42 Lidocaine Patch Removal 1 Each TOP 1 each 2100 SAVANNA Administration Mometasone Furoate/Formoterol Fumar 1 puff 08/07/20 06:30 08/28/20 07:14 Mometasone 100 Mcg/Formoterol 5 Mcg 120 Puff Inhaler INH 1 puff BID-RT SAVANNA Administration Pantoprazole Sodium 40 mg 08/07/20 09:00 08/27/20 16:10 Pantoprazole 40 Mg Tab PO 40 mg DAILY SAVANNA Administration Polyethylene Glycol 17 gm 08/07/20 09:00 08/28/20 08:51 Polyethylene Glycol 3350 17 Gm Packet PO Not Given DAILY SAVANNA Pregabalin 75 mg 08/07/20 09:00 08/28/20 08:49 Pregabalin 75 Mg Cap PO 75 mg TID SAVANNA Administration Sodium Chloride 10 ml 08/22/20 09:00 08/28/20 08:50 Flush - Normal Saline 10 Ml Syringe IVF 10 ml Q12HR SAVANNA Administration Tramadol HCl 50 mg 08/27/20 22:54 08/27/20 23:12 Tramadol Hcl 50 Mg Tab PO 50 mg Q4H PRN Administration Moderate Pain (4-6) Hospitalist Exam Vitals: Vital Signs (12 hours) Temp Pulse Resp BP Pulse Ox 08/28/20 07:32 99 08/28/20 07:17 98 08/28/20 07:14 108 H 20 97 08/28/20 05:45 102 H 21 H 120/92 H 96 08/28/20 04:00 97.5 F L 105 H 22 H 111/97 H 96 08/28/20 02:00 103 H 21 H 121/87 96 08/28/20 00:00 97.7 F 108 H 21 H 114/92 H 95 Weight Admit Weight 228 lb 6.4 oz Weight 206 lb 14.4 oz Most Recent Monitor Data Heart Rate from ECG 66 NIBP 102/75 NIBP BP-Mean 77 Respiration from ECG 29 SpO2 93 General Appearance: NAD, ill appearing Eye: PERRL, anicteric sclera ENT: normocephalic atraumatic, no oropharyngeal lesions Neck: supple, symmetric, no JVD Heart: RRR, no murmur, no gallops, no rubs Respiratory: no wheezes, no rales, no ronchi Respiratory - other findings: Reduced air entry Gastrointestinal: soft, non-tender, non-distended, normal bowel sounds Extremities: no clubbing, no edema Skin: normal turgor, no lesions Neurological: no focal deficits Musculoskeletal: generalized weakness Psychiatric: normal affect, normal behavior Hosp A/P (1) Acute respiratory failure with hypoxemia Code(s): J96.01 - ACUTE RESPIRATORY FAILURE WITH HYPOXIA Status: Acute (2) Pneumonia due to COVID-19 virus Code(s): U07.1 - COVID-19; J12.82 - PNEUMONIA DUE TO CORONAVIRUS DISEASE 2019 Status: Acute (3) Bilateral pulmonary embolism Code(s): I26.99 - OTHER PULMONARY EMBOLISM WITHOUT ACUTE COR PULMONALE Status: Acute (4) Acute renal failure Status: Resolved (5) Type 2 myocardial infarction Code(s): I21.A1 - MYOCARDIAL INFARCTION TYPE 2 Status: Acute (6) Anxiety Code(s): F41.9 - ANXIETY DISORDER, UNSPECIFIED Status: Chronic (7) ADHD Status: Chronic (8) Hypertension Code(s): I10 - ESSENTIAL (PRIMARY) HYPERTENSION Status: Chronic - Plan old records reviewed/req, PT/OT, social worker psychiatric Patient is still on high flow oxygen and he is very weak, he will need placement eventually, LTAC is option, Continue Eliquis and wean off oxygen as tolerated Continue nutritional support Care delay because of bad weather and placement issues Continue current medication at this point, no new recommendation,
[2020-08-28] MEDS: Melatonin 3 MG TAB PO PRN (21:51)
[2020-08-28] MEDS: Transdermal Patch Removal TOP SCH (21:52)
[2020-08-29] MEDS: traMADol HCl 50 MG TAB PO PRN ×2 (06:13→13:41)
[2020-08-29] MEDS: Acetaminophen 325 MG TAB PO PRN (06:14)
[2020-08-29] MEDS: Mometasone 100 MCG/Formoterol 5 MCG 120 PUFF INHALER INH SCH ×2 (08:06→19:26)
[2020-08-29] MEDS: Apixaban 5 MG TAB PO SCH ×2 (08:59→20:45)
[2020-08-29] MEDS: Pregabalin 75 MG CAP PO SCH ×3 (08:59→20:45)
[2020-08-29] MEDS: Cholecalciferol 1,000 UNITS (25 MCG) TAB PO SCH (08:59)
[2020-08-29] MEDS: Lidocaine 5% Patch TD SCH (08:59)
[2020-08-29] MEDS: Dexamethasone 4 MG TAB PO SCH (08:59)
[2020-08-29] MEDS: buPROPion HCl 100 MG TAB PO SCH ×2 (09:00→20:46)
[2020-08-29] MEDS: Polyethylene Glycol 3350 17 GM Packet PO SCH (09:00)
--- NOTE | 2020-08-29 11:11 | PDOC.HOSPP ---
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 - Objective Vital Signs & Weight: Vital Signs (12 hours) Temp Pulse Resp BP Pulse Ox 08/29/20 10:45 94 L 08/29/20 10:00 97.0 F L 115 H 20 114/80 94 L 08/29/20 08:00 97.2 F L 103 H 25 H 125/87 95 08/29/20 06:00 106 H 20 114/77 98 08/29/20 03:46 96.4 F L 109 H 16 102/84 97 08/29/20 00:08 97.7 F 106 H 22 H 117/81 95 Weight Admit Weight 228 lb 6.4 oz Weight 206 lb 14.4 oz Most Recent Monitor Data Heart Rate from ECG 66 NIBP 102/75 NIBP BP-Mean 77 Respiration from ECG 29 SpO2 93 I&O: 08/28/20 08/29/20 08/30/20 06:59 06:59 06:59 Intake Total 1200 1200 Balance 1200 1200 Result Diagrams: 08/28/20 06:19 08/28/20 06:19 Hospitalist ROS - Medication Medications: Active Medications Generic Name Dose Route Start Last Admin Trade Name Freq PRN Reason Stop Dose Admin Acetaminophen 650 mg 08/07/20 04:00 08/29/20 06:14 Acetaminophen 325 Mg Tab PO 650 mg Q4H PRN Administration Headache/Fever/Mild Pain (1-3) Apixaban 5 mg 08/18/20 21:00 08/29/20 08:59 Apixaban 5 Mg Tab PO 5 mg BID SAVANNA Administration Bupropion HCl 200 mg 08/07/20 09:00 08/29/20 09:00 Bupropion Hcl 100 Mg Tab PO 200 mg BID SAVANNA Administration Cholecalciferol 2,000 units 08/07/20 09:00 08/29/20 08:59 Cholecalciferol 1,000 Units (25 Mcg) Tab PO 2,000 units DAILY SAVANNA Administration Dexamethasone 4 mg 08/25/20 09:00 08/29/20 08:59 Dexamethasone 4 Mg Tab PO 4 mg DAILY SAVANNA Administration Lidocaine 1 patch 08/10/20 09:00 08/29/20 08:59 Lidocaine 5% Patch TD 1 patch 0900 SAVANNA Administration Melatonin 3 mg 08/22/20 07:51 02/16/21 21:51 Melatonin 3 Mg Tab PO 3 mg HS PRN Administration Insomnia Miscellaneous Medication 1 each 08/09/20 21:00 08/28/20 21:52 Lidocaine Patch Removal 1 Each TOP 1 each 2100 SAVANNA Administration Mometasone Furoate/Formoterol Fumar 1 puff 08/07/20 06:30 08/29/20 08:06 Mometasone 100 Mcg/Formoterol 5 Mcg 120 Puff Inhaler INH 1 puff BID-RT SAVANNA Administration Pantoprazole Sodium 40 mg 08/07/20 09:00 08/29/20 08:59 Pantoprazole 40 Mg Tab PO 40 mg DAILY SAVANNA Administration Polyethylene Glycol 17 gm 08/07/20 09:00 08/29/20 09:00 Polyethylene Glycol 3350 17 Gm Packet PO 17 gm DAILY SAVANNA Administration Pregabalin 75 mg 08/07/20 09:00 08/29/20 08:59 Pregabalin 75 Mg Cap PO 75 mg TID SAVANNA Administration Sodium Chloride 10 ml 08/22/20 09:00 08/29/20 08:59 Flush - Normal Saline 10 Ml Syringe IVF 10 ml Q12HR SAVANNA Administration Tramadol HCl 50 mg 08/27/20 22:54 08/29/20 06:13 Tramadol Hcl 50 Mg Tab PO 50 mg Q4H PRN Administration Moderate Pain (4-6) Hospitalist Exam Vitals: Vital Signs (12 hours) Temp Pulse Resp BP Pulse Ox 08/29/20 10:45 94 L 08/29/20 10:00 97.0 F L 115 H 20 114/80 94 L 08/29/20 08:00 97.2 F L 103 H 25 H 125/87 95 08/29/20 06:00 106 H 20 114/77 98 08/29/20 03:46 96.4 F L 109 H 16 102/84 97 08/29/20 00:08 97.7 F 106 H 22 H 117/81 95 Weight Admit Weight 228 lb 6.4 oz Weight 206 lb 14.4 oz Most Recent Monitor Data Heart Rate from ECG 66 NIBP 102/75 NIBP BP-Mean 77 Respiration from ECG 29 SpO2 93 General Appearance: NAD Eye: PERRL, anicteric sclera ENT: normocephalic atraumatic, no oropharyngeal lesions Neck: supple, symmetric, no JVD, no thyromegaly Heart: RRR, no murmur, no gallops, no rubs Respiratory: rales Gastrointestinal: soft, non-tender, non-distended Extremities: 1+ LE edema Hosp A/P (1) Anxiety Code(s): F41.9 - ANXIETY DISORDER, UNSPECIFIED Status: Chronic (2) Bilateral pulmonary embolism Code(s): I26.99 - OTHER PULMONARY EMBOLISM WITHOUT ACUTE COR PULMONALE Status: Acute (3) Type 2 myocardial infarction Code(s): I21.A1 - MYOCARDIAL INFARCTION TYPE 2 Status: Acute (4) Acute respiratory failure with hypoxemia Code(s): J96.01 - ACUTE RESPIRATORY FAILURE WITH HYPOXIA Status: Acute (5) Pneumonia due to COVID-19 virus Code(s): U07.1 - COVID-19; J12.82 - PNEUMONIA DUE TO CORONAVIRUS DISEASE 2019 Status: Acute (6) ADHD Status: Chronic - Plan Plan for today 08/29 psych --- he has history of severe anxiety, he gets short of breath when he is anxious, will continue with current benzodiazepine. pulmonary--PE due to hypercoagulability in the setting of covid pneumonia---he is now on Eliquis, still requires high flow, his Decadron was decreased to once a day. ARF--resolved. Hem--had Thrombocytopenia, recovered. cardiac--his BP was low/soft, GEORGI inhibitor stopped. He is severely deconditioned and is reporting pain when he works with physical therapy, he has tramadol as needed for pain.
[2020-08-29] MEDS: ALPRAZolam 1 MG TAB PO SCH ×2 (15:14→20:45)
[2020-08-29] MEDS: Transdermal Patch Removal TOP SCH (20:47)
[2020-08-29] MEDS: Melatonin 3 MG TAB PO PRN (20:47)
[2020-08-30 04:49] LABS: #Eosinphils 0.1 thou/uL (0.0-0.7); #Lymphocytes 2.1 thou/uL (1.20-3.40); #Neutrophils 10.9 thou/uL (1.40-6.50); %Basophils 0.2 % (0.0-1.0); %Eosinophils 0.7 % (0.0-10.0); %Lymphocytes 14.9 % (21.0-51.0); %Neutrophils 77.3 % (42.0-75.0); Hemoglobin 14.4 g/dL (14.0-18.0); Mean Corpuscular HGB CONC 32.8 g/dL (32.0-36.0); Mean Corpuscular Volume 97.7 fL (78.0-98.0); Mean Platelet Volume 10.8 fL (7.4-10.4); Platelet Count 50 thou/uL (130-400); RBC Distribution Width 14.3 % (11.5-14.5); White Blood Cell (WBC) Count 14.2 thou/uL (4.8-10.8)
[2020-08-30 04:52] LABS: Anion Gap 13 mmol/L (10-20); BUN (Urea Nitrogen) 30 mg/dL (8.4-25.7); Calc. Creatinine Clearance 147 mL/min (70-130); Carbon Dioxide 26 mmol/L (23-31); Chloride 104 mmol/L (98-107); Glucose 77 mg/dL (80-115); Potassium 4.3 mmol/L (3.5-5.1); Sodium 139 mmol/L (136-145)
[2020-08-30] MEDS: Mometasone 100 MCG/Formoterol 5 MCG 120 PUFF INHALER INH SCH (08:41)
[2020-08-30] MEDS: buPROPion HCl 100 MG TAB PO SCH (09:26)
[2020-08-30] MEDS: Lidocaine 5% Patch TD SCH (09:27)
[2020-08-30] MEDS: Pregabalin 75 MG CAP PO SCH (09:27)
[2020-08-30] MEDS: Apixaban 5 MG TAB PO SCH (09:27)
[2020-08-30] MEDS: Cholecalciferol 1,000 UNITS (25 MCG) TAB PO SCH (09:27)
[2020-08-30] MEDS: ALPRAZolam 1 MG TAB PO SCH (09:27)
[2020-08-30] MEDS: Dexamethasone 4 MG TAB PO SCH (09:28)
[2020-08-30] MEDS: Polyethylene Glycol 3350 17 GM Packet PO SCH (09:29)
[2020-08-30 12:03] VITALS: BP 118/78; TEMP 96.3
--- NOTE | 2020-08-30 12:56 | PDOC.HOSPP ---
- Subjective Encounter Date: 08/30/20 Subjective: He appears to be more short of breath and fatigued today he is also very tearful. - Objective Vital Signs & Weight: Vital Signs (12 hours) Temp Pulse Resp BP Pulse Ox 08/30/20 12:01 96.3 F L 115 H 20 118/78 93 L 08/30/20 12:00 91 L 08/30/20 10:43 94 L 08/30/20 09:42 116 H 24 H 143/99 H 84 L 08/30/20 09:05 94 L 08/30/20 08:41 112 H 20 92 L 08/30/20 08:15 95 08/30/20 07:38 97.6 F 112 H 22 H 116/84 95 08/30/20 05:01 97.1 F L 104 H 20 105/85 94 L 08/30/20 03:09 94 L 08/30/20 01:20 97.9 F 106 H 16 117/81 96 Weight Admit Weight 228 lb 6.4 oz Weight 206 lb 14.4 oz Most Recent Monitor Data Heart Rate from ECG 66 NIBP 102/75 NIBP BP-Mean 77 Respiration from ECG 29 SpO2 93 I&O: 08/29/20 08/30/20 08/31/20 06:59 06:59 06:59 Intake Total 1200 1020 Balance 1200 1020 Result Diagrams: 08/30/20 04:20 08/30/20 04:20 Hospitalist ROS - Medication Medications: Active Medications Generic Name Dose Route Start Last Admin Trade Name Freq PRN Reason Stop Dose Admin Acetaminophen 650 mg 08/07/20 04:00 08/29/20 06:14 Acetaminophen 325 Mg Tab PO 650 mg Q4H PRN Administration Headache/Fever/Mild Pain (1-3) Alprazolam 1 mg 08/29/20 15:00 08/30/20 09:27 Alprazolam 1 Mg Tab PO 1 mg TID SAVANNA Administration Apixaban 5 mg 08/18/20 21:00 08/30/20 09:27 Apixaban 5 Mg Tab PO 5 mg BID SAVANNA Administration Bupropion HCl 200 mg 08/07/20 09:00 08/30/20 09:26 Bupropion Hcl 100 Mg Tab PO 200 mg BID SAVANNA Administration Cholecalciferol 2,000 units 08/07/20 09:00 08/30/20 09:27 Cholecalciferol 1,000 Units (25 Mcg) Tab PO 2,000 units DAILY SAVANNA Administration Dexamethasone 4 mg 08/25/20 09:00 08/30/20 09:28 Dexamethasone 4 Mg Tab PO 4 mg DAILY SAVANNA Administration Lidocaine 1 patch 08/10/20 09:00 08/30/20 09:27 Lidocaine 5% Patch TD 1 patch 0900 SAVANNA Administration Melatonin 3 mg 08/22/20 07:51 08/29/20 20:47 Melatonin 3 Mg Tab PO 3 mg HS PRN Administration Insomnia Miscellaneous Medication 1 each 08/09/20 21:00 08/29/20 20:47 Lidocaine Patch Removal 1 Each TOP 1 each 2100 SAVANNA Administration Mometasone Furoate/Formoterol Fumar 1 puff 08/07/20 06:30 08/30/20 08:41 Mometasone 100 Mcg/Formoterol 5 Mcg 120 Puff Inhaler INH 1 puff BID-RT SAVANNA Administration Pantoprazole Sodium 40 mg 08/07/20 09:00 08/30/20 09:27 Pantoprazole 40 Mg Tab PO 40 mg DAILY SAVANNA Administration Polyethylene Glycol 17 gm 08/07/20 09:00 08/30/20 09:29 Polyethylene Glycol 3350 17 Gm Packet PO 17 gm DAILY SAVANNA Administration Pregabalin 75 mg 08/07/20 09:00 08/30/20 09:27 Pregabalin 75 Mg Cap PO 75 mg TID SAVANNA Administration Sodium Chloride 10 ml 08/22/20 09:00 08/30/20 09:27 Flush - Normal Saline 10 Ml Syringe IVF 10 ml Q12HR SAVANNA Administration Tramadol HCl 50 mg 08/27/20 22:54 08/29/20 13:41 Tramadol Hcl 50 Mg Tab PO 50 mg Q4H PRN Administration Moderate Pain (4-6) Hospitalist Exam Vitals: Vital Signs (12 hours) Temp Pulse Resp BP Pulse Ox 08/30/20 12:01 96.3 F L 115 H 20 118/78 93 L 08/30/20 12:00 91 L 08/30/20 10:43 94 L 08/30/20 09:42 116 H 24 H 143/99 H 84 L 08/30/20 09:05 94 L 08/30/20 08:41 112 H 20 92 L 08/30/20 08:15 95 08/30/20 07:38 97.6 F 112 H 22 H 116/84 95 08/30/20 05:01 97.1 F L 104 H 20 105/85 94 L 08/30/20 03:09 94 L 08/30/20 01:20 97.9 F 106 H 16 117/81 96 Weight Admit Weight 228 lb 6.4 oz Weight 206 lb 14.4 oz Most Recent Monitor Data Heart Rate from ECG 66 NIBP 102/75 NIBP BP-Mean 77 Respiration from ECG 29 SpO2 93 General Appearance: awake alert Eye: PERRL, anicteric sclera ENT: normocephalic atraumatic, no oropharyngeal lesions Neck: supple, symmetric Heart: RRR, no murmur Respiratory: rales Gastrointestinal: soft, non-tender Hosp A/P (1) Anxiety Code(s): F41.9 - ANXIETY DISORDER, UNSPECIFIED Status: Chronic (2) Bilateral pulmonary embolism Code(s): I26.99 - OTHER PULMONARY EMBOLISM WITHOUT ACUTE COR PULMONALE Status: Acute (3) Type 2 myocardial infarction Code(s): I21.A1 - MYOCARDIAL INFARCTION TYPE 2 Status: Acute (4) Acute respiratory failure with hypoxemia Code(s): J96.01 - ACUTE RESPIRATORY FAILURE WITH HYPOXIA Status: Acute (5) Pneumonia due to COVID-19 virus Code(s): U07.1 - COVID-19; J12.82 - PNEUMONIA DUE TO CORONAVIRUS DISEASE 2019 Status: Acute (6) ADHD Status: Chronic - Plan Plan for today 08/29 psych --- he has history of severe anxiety, he gets short of breath when he is anxious, will continue with current benzodiazepine. pulmonary--PE due to hypercoagulability in the setting of covid pneumonia---he is now on Eliquis, still requires high flow, his Decadron was decreased to once a day. ARF--resolved. Hem--had Thrombocytopenia, recovered. cardiac--his BP was low/soft, GEORGI inhibitor stopped. He is severely deconditioned and is reporting pain when he works with physical therapy, he has tramadol as needed for pain. Plan for today 08/30 Patient today is very tearful and requested to be made a DO NOT RESUSCITATE DO NOT INTUBATE, he was also interested in hospice coming in to see him he only wants to be comfortable, he has full capacity he is fully oriented, I will honor his wishes and asked for hospice consult and I will make him DO NOT RESUSCITATE DO NOT INTUBATE.
--- NOTE | 2020-08-30 14:16 | PDOC.DS.DS ---
Provider Date of Admission: 08/06/20 23:43 Date of Discharge: 08/30/20 Admitting Provider: Colt Monk MD Consultations: Pulmonary Primary Care Physician: [place] Course Hospital Course: This is a 70-year-old man male long term resident presents to the emergency department via EMS with complaints of shortness of breath. Patient was diagnosed with Covid 19 on July 05. He was admitted to the hospital a week later for worsening shortness of breath and discharged after several days of IV steroids and remdesivir treatment. Patient has been doing well since then. Tonight he was feeling mildly to moderately short of breath and long term staff checked his oxygen saturation which was as low as 50%. EMS was called and upon arrival he was satting 60% on room air. They placed a nonrebreather and got his saturation as high as 85%. Patient was diagnosed with bilateral PE, he was started on full dose Lovenox, he developed thrombocytopenia he was switched to Arixtra then to Eliquis, during his stay patient continued to require high flow, at some point he improved a little bit with the addition of his anxiety medications, but he continued to linger and became very deconditioned, PT was consulted but he was not very cooperative with he tried his best but whenever we taper off his oxygen he panics and he started asking for more oxygen, he was seen and followed by pul monology, today patient expressed that he wants to be a hospice, we initiated a consultation with hospice and he was accepted. We will discharge patient to hospice service. Resuscitation Status: 08/30/20 09:43 Resuscitation Status Routine Resuscitation Status: DNAR: NO Resuscitation Discussed with: patient Additional comments: nurse Sherri present Lab Results: 08/30/20 04:20 08/30/20 04:20 Abnormal Lab Results - Last 48 hrs 08/30/20 04:20: BUN 30 H, Creatinine 0.63 L 08/30/20 04:20: WBC 14.2 H, RBC 4.50 L, MCH 32.0 H, Plt Count 50 L, MPV 10.8 H, Neutrophils % 77.3 H, Lymphocytes % 14.9 L, Neutrophils # 10.9 H, Monocytes # 1.0 H Microbiology - Entire Visit 08/06/20 22:07 Venous blood - Right Hand Blood Culture - Final NO GROWTH IN 5 DAYS 08/06/20 22:03 Venous blood - Left Arm Blood Culture - Final Coagulase Neg Staphylococcus Coagulase Neg Staphylococcus#2 Vitals: Vital Signs (12 hours) Temp Pulse Resp BP Pulse Ox 08/30/20 12:01 96.3 F L 115 H 20 118/78 93 L 08/30/20 12:00 91 L 08/30/20 10:43 94 L 08/30/20 09:42 116 H 24 H 143/99 H 84 L 08/30/20 09:05 94 L 08/30/20 08:41 112 H 20 92 L 08/30/20 08:15 95 08/30/20 07:38 97.6 F 112 H 22 H 116/84 95 08/30/20 05:01 97.1 F L 104 H 20 105/85 94 L 08/30/20 03:09 94 L Weight Admit Weight 228 lb 6.4 oz Weight 206 lb 14.4 oz Most Recent Monitor Data Heart Rate from ECG 66 NIBP 102/75 NIBP BP-Mean 77 Respiration from ECG 29 SpO2 93 Physical Exam: The patient was seen and examined on the day of discharge. General Appearance: ill appearing Eye: PERRL, anicteric sclera ENT: normocephalic atraumatic Neck: supple, symmetric Respiratory: rales Cardiovascular: RRR, no murmur Gastrointestinal: soft, non-tender, non-distended Problem (1) Anxiety Code(s): F41.9 - ANXIETY DISORDER, UNSPECIFIED Status: Chronic (2) Bilateral pulmonary embolism Code(s): I26.99 - OTHER PULMONARY EMBOLISM WITHOUT ACUTE COR PULMONALE Status: Acute (3) Type 2 myocardial infarction Code(s): I21.A1 - MYOCARDIAL INFARCTION TYPE 2 Status: Acute (4) Acute respiratory failure with hypoxemia Code(s): J96.01 - ACUTE RESPIRATORY FAILURE WITH HYPOXIA Status: Acute (5) Pneumonia due to COVID-19 virus Code(s): U07.1 - COVID-19; J12.82 - PNEUMONIA DUE TO CORONAVIRUS DISEASE 2019 Status: Acute (6) ADHD Status: Chronic Time Spent in discharge related activities (mins): 45 Plan Allergies: No Known Allergies Allergy (Verified 08/08/20 01:13) Referrals: Noah Bustillos MD [Primary Care Provider] - Disposition: HOSPICE MEDICAL FACILITY Quality CORE MEASURES:: N/A
--- NOTE | 2020-08-31 05:02 | PQF ---
CLINICAL DOCUMENTATION CLARIFICATION FORM: Dear : [place] Date / Time: 08/31/2020 1905 Please exercise your independent, professional judgment in responding to the clarification form. Clinical indicators are provided on the bottom of this form for your review COVID 19 Clarification and Manifestations: Please check appropriate box(es): A. COVID 19 virus diagnosis Validation: [ ] COVID-19 is ruled in (if so, please provide the evidence used to support this diagnosis) [ ] COVID-19 has been ruled out [ y ] COVID-19 is history only [ ] Other explanation of clinical findings [ ] Unable to determine B. COVID 19 virus with associated manifestations: (please check all that apply) [ y] Pneumonia [ y ] Acute Respiratory Failure [ ] ARDS [ ] Encephalopathy [ ] Sepsis Viral [ ] Other diagnosis, please specify [ ] Unable to determine Physician Signature: Date/Time: For continuity of documentation, please document condition throughout progress notes and discharge summary. Thank You. To be completed by CDI/Coding staff for physician review: Present Clinical Indicators - Signs / Symptoms / Labs Results and Location in Medical Record [x] WBC 14.5, Plt count 95, Neutrophils 68, Band 1, Lactic acid 2.1 Laboratory 08/06 [x] Blood culture: Coagulase Neg Staphylococcus Microbiology 08/06 [x] BP 124/89, Pulse 116, Resp 26, Temp 99.7 Vital signs 08/06 [x] Pt was diagnosed with Covid 19 on July 05 H&P p1 08/06 Dr Monk [x] Admitted with worsening shortness of breath H&P p1 08/06 Dr Monk [x] Covid 19 H&P p6 08/06 Dr Monk [x] Acute Hypoxic Respiratory failure H&P p6 08/06 Dr Monk [x] Leukocytosis H&P p6 08/06 Dr Monk [x] his admission is unlikely to be because of Covid Consult Dr Donovan 08/08 [x] Covid Pneumonia, not clinically issue on presentation PN p1 08/23 Dr Donovan Present Risk Factors Results and Location in Medical Record [x] 70 year-old Male H&P p1 08/06 Dr Monk [x] Dementia H&P p1 08/06 Dr Monk [x] Smoker H&P p1 08/06 Dr Monk [x] Obesity Consult 08/08 Present Treatments Results and Location in Medical Record [x] IVF NS 1L SEP 10 [x] Dulera 100 mcg SOLE 08/07 [x] IV Decadron 4 mg SEP 10 [x] Bipap Respiratory Panel 08/06 [x] High Flow O2 Respiratory Panel 08/09 [x] Respiratory consult Consult Dr Donovan 08/08 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
== END 2020-08-30 14:25 | disposition hospice, inpatient (51) | DRG 175 ==
LOC: ERS 21:30 → ERHOLD 23:43 → 2SE 08-08 00:33
PROVIDERS: ADMIT Internal Medicine; ATTEND Internal Medicine
PROC: 8E0ZXY6 Isolation (ICD-10-PCS; 2020-08-06)
PROC: 5A09457 Assistance with Respiratory Ventilation, 24-96 Consecutive Hours, Continuous Positive Airway Pressure (ICD-10-PCS; principal; 2020-08-07)
PROC: 5A0955A Assistance with Respiratory Ventilation, Greater than 96 Consecutive Hours, High Flow/Velocity Cannula (ICD-10-PCS; 2020-08-09)
DX: I26.99 Other pulmonary embolism without acute cor pulmonale (principal); I21.A1 Myocardial infarction type 2; J96.01 Acute respiratory failure with hypoxia; J18.9 Pneumonia, unspecified organism; N17.9 Acute kidney failure, unspecified; D68.8 Other specified coagulation defects; R04.2 Hemoptysis; Z51.5 Encounter for palliative care; Z66 Do not resuscitate; F90.9 Attention-deficit hyperactivity disorder, unspecified type; G47.00 Insomnia, unspecified; K21.9 Gastro-esophageal reflux disease without esophagitis; I10 Essential (primary) hypertension; F31.9 Bipolar disorder, unspecified; F17.210 Nicotine dependence, cigarettes, uncomplicated; D69.6 Thrombocytopenia, unspecified; E66.9 Obesity, unspecified; F41.1 Generalized anxiety disorder; Z86.16 Personal history of COVID-19; Z86.19 Personal history of other infectious and parasitic diseases; Z68.28 Body mass index [BMI] 28.0-28.9, adult; Z79.899 Other long term (current) drug therapy; Z79.82 Long term (current) use of aspirin
CPT/HCPCS: 36415; 36600; 71045; 71275; 80048; 80053; 82553; 82728; 82805; 83605; 83735; 83880; 84484; 85025; 85379; 85610; 85652; 85730; 86140; 87040; 87149; 93005; 94660; 94664; 94760; 96372; 96374; J1100; J1650; J1652; J2060; J2270; J3360; J8540; Q9967

== ENCOUNTER 2020-08-30 14:32 | Inpatient (IN) | payer OTHER ==
[2020-08-30 14:48] VITALS: BMI 30.9
[2020-08-30] MEDS ORDERED: Morphine 2 MG/ML VIAL SLOW IVP PRN ×2 (14:55→15:15)
[2020-08-30] MEDS ORDERED: Acetaminophen 325 MG TAB PO PRN (15:00)
[2020-08-30] MEDS ORDERED: Scopolamine 1.5 mg/72 hour Patch TOP PRN (15:00)
[2020-08-30] MEDS ORDERED: Sodium Chloride 0.9% 1,000 ML IV SCH (15:00)
[2020-08-30] MEDS ORDERED: Lorazepam 2 MG/ML VIAL SLOW IVP PRN (15:00)
[2020-08-30] MEDS ORDERED: Ondansetron PF 4 MG/2 ML Vial IVP PRN (15:00)
[2020-08-30] MEDS: Morphine 4 MG/ML VIAL SLOW IVP PRN ×5 (15:20→21:52)
[2020-08-30] MEDS: Lorazepam 2 MG/ML VIAL SLOW IVP PRN ×2 (16:53→18:54)
[2020-08-31] MEDS: Morphine 4 MG/ML VIAL SLOW IVP PRN (00:52)
[2020-08-31 01:06] VITALS: BP 69/49; TEMP 97.3
== END 2020-08-31 04:55 | disposition expired | DRG 951 ==
LOC: 2SE 14:32
PROVIDERS: ADMIT Family Medicine; ATTEND Family Medicine
DX: Z51.5 Encounter for palliative care (principal); U07.1 COVID-19; J12.82 Pneumonia due to coronavirus disease 2019; J96.01 Acute respiratory failure with hypoxia; I26.99 Other pulmonary embolism without acute cor pulmonale; F03.90 Unspecified dementia, unspecified severity, without behavioral disturbance, psychotic disturbance, mood disturbance, and anxiety; G47.00 Insomnia, unspecified; I10 Essential (primary) hypertension; F90.9 Attention-deficit hyperactivity disorder, unspecified type; K21.9 Gastro-esophageal reflux disease without esophagitis; F31.9 Bipolar disorder, unspecified; F41.9 Anxiety disorder, unspecified; B19.20 Unspecified viral hepatitis C without hepatic coma
CPT/HCPCS: J2060; J2270; J2405